=== PATIENT | female | born 1970 | race Caucasian/White ===

== ENCOUNTER 2017-04-08 22:30 | Inpatient (IN) | payer SELFPAY ==
[2017-04-08 23:26] LABS: #Eosinphils 0.3 thou/uL (0.0-0.7); #Lymphocytes 2.2 thou/uL (1.20-3.40); #Monocytes 0.5 thou/uL (0.11-0.59); #Neutrophils 4.1 thou/uL (1.40-6.50); %Basophils 0.2 % (0.0-1.0); %Eosinophils 4.6 % (0.0-10.0); %Lymphocytes 30.4 % (21.0-51.0); %Monocytes 6.8 % (0.0-10.0); Hemoglobin 11.8 g/dL (12.0-16.0); Mean Corpuscular Hemoglobin 28.5 pg (27.0-31.0); Mean Platelet Volume 7.1 fL (7.4-10.4); Platelet Count 399 thou/uL (130-400); RBC Distribution Width 13.3 % (11.5-14.5); Red Blood Cell (RBC) Count 4.12 mill/uL (4.20-5.40); White Blood Cell (WBC) Count 7.1 thou/uL (4.8-10.8)
[2017-04-08 23:41] LABS: ALT (SGPT) 31 U/L (8-55); AST (SGOT) 36 U/L (5-34); Albumin 3.8 g/dL (3.5-5.0); Alkaline Phosphatase 226 U/L (40-150); Anion Gap 14 mmol/L (10-20); BUN (Urea Nitrogen) 6 mg/dL (7.0-18.7); Bilirubin, Total 0.4 mg/dL (0.2-1.2); Calc. Creatinine Clearance 0 mL/min (70-130); Calcium 9.3 mg/dL (7.8-10.44); Carbon Dioxide 27 mmol/L (22-29); Chloride 102 mmol/L (98-107); Estimated GFR-MDRD 64; Globulin 3.4 g/dL (2.4-3.5); Glucose 115 mg/dL (70-105); Lipase 47 U/L (8-78); Potassium 3.2 mmol/L (3.5-5.1); Protein, Total 7.2 g/dL (6.0-8.3); Sodium 140 mmol/L (136-145)
[2017-04-08 23:54] LABS: Bilirubin Negative (Negative); Blood, Urine Negative (Negative); Clarity CLEAR (Clear); Glucose, Urine (Dipstick) Negative (Negative); Leukocyte Negative (Negative); Nitrite Negative (Negative); Protein, Urine (Dipstick) Negative (Neg-Trace); Specific Gravity, Urine 1.011 (1.002-1.036); Urobilinogen 0.2 mg/dL (0.2-1.0)
[2017-04-09] MEDS ORDERED: Promethazine HCl 25 MG/ML VIAL ONE (01:00)
[2017-04-09] MEDS ORDERED: Benzocaine 20% Spray 60 ML CAN ONE (01:22)
[2017-04-09] MEDS ORDERED: Lidocaine 2% Jelly 5 ML TUBE ONE (01:22)
[2017-04-09] MEDS ORDERED: Oxymetazoline HCl 0.05% ( 15 ML ) ONE (01:22)
[2017-04-09] MEDS ORDERED: Acetaminophen 325 MG TAB PO PRN (02:57)
[2017-04-09] MEDS ORDERED: Ondansetron ODT 4 MG TAB SL PRN (02:57)
[2017-04-09] MEDS ORDERED: Ondansetron HCl/PF 4 MG/2 ML Vial IVP PRN (02:57)
[2017-04-09] MEDS: Sodium Chloride 0.9% 1,000 ML IV SCH ×2 (03:13→11:00)
--- NOTE | 2017-04-09 08:18 | RAD ---
ACUTE ABDOMINAL SERIES: INDICATION: Burning pain in the upper abdomen. FINDINGS: Lungs are clear. The cardiac silhouette is accentuated by the exam technique and low lung volumes. Cholecystectomy clips are seen within the right upper quadrant. A small air fluid level is present w ithin the region of the suspected cecum. No differential air fluid levels are seen to suggest the pr esence of small bowel obstruction. There is gas extending to the level of the rectum. There is a mo derate amount of retained stool within the colon. Surgical clips present within the right lower quad rant of the abdomen likely related to a displaced cholecystectomy clip. Small phleboliths are seen w ithin the lower hemipelvis. No acute osseous abnormality is evident. IMPRESSION: 1. Small air fluid level within the region of the cecum can be seen with diarrheal states or colitis . There is no overt evidence to suggest the presence of small bowel obstruction. Gas is present all the way to the level of the colon and rectum. 2. Low lung volumes. POS: OFF
[2017-04-09 11:33] VITALS: BMI 34.2
--- NOTE | 2017-04-09 11:33 | HP ---
CHIEF COMPLAINT: Abdominal pain. HISTORY: The patient is a 46-year-old female who is 2 years status post laparoscopic appendectomy an d cholecystectomy. She reports an 8-month history of intermittent pain which is in the upper abdomen in left side, worse over the last week. No vomiting, but she has been having diarrhea for the last 2 years and has intermittent black tarry stools. She is passing flatus. Her last bowel movement 2 d ays ago. She has never had a colonoscopy. She has a family history of colon cancer in a grandparent . PAST MEDICAL HISTORY: Morbid obesity, hypothyroidism, mitral valve prolapse. PAST SURGICAL HISTORY: Appendectomy, cholecystectomy, and section. MEDICATIONS: Levothyroxine, Klonopin, Cymbalta, and nortriptyline. ALLERGIES: SULFA. SOCIAL HISTORY: She is , unemployed. No tobacco, no alcohol. FAMILY HISTORY: Colon cancer and congestive heart failure. PHYSICAL EXAMINATION: VITAL SIGNS: Temperature 97.4, pulse 86, blood pressure 100/69. GENERAL: She is an obese female, in no apparent distress. HEENT: She has an NG tube in, but minimal out. ABDOMEN: Her abdomen is obese, soft. She is tender in the left upper quadrant. No palpable masses. LABORATORY AND X-RAY FINDINGS: Her white count is 7.1, H&H 11 and 39, platelet count 399. Electroly doug are fine. AST 36.8, alkaline phosphatase 226. She had a KUB that showed no evidence of bowel ob struction. Air in the colon. ASSESSMENT: Chronic abdominal pain, history of melena, family history of colon cancer. PLAN: CT of abdomen and pelvis. GI consult.
--- NOTE | 2017-04-09 15:20 | CT ---
CT ABDOMEN AND PELVIS WITH IV AND ORAL CONTRAST: HISTORY: Abdomen pain. Diarrhea. FINDINGS: There is mild atelectasis at each lung base. Nasogastric tube descends to the stomach. Gallbladder is surgically absent. The common duct measures up to 1.3 cm. Pancreas is unremarkable. At the dome of the anterior segment right liver lobe, an oval subtle slightly hypodense mass measures up to 5.6 cm in length and abuts the superior margin of the liver. A less well-defined heterogeneou s low-density area is present at the dome of the lateral segment left liver lobe. No enlarged lymph nodes or free fluid are apparent within the abdomen and pelvis. The urinary bladder is incompletely distended. IMPRESSION: 1. Subtle heterogeneous low-density masses within each liver lobe, as detailed above. Each is immed iately beneath the diaphragm. Please consider MRI liver for better characterization. 2. Status post cholecystectomy. Common duct is dilated. Cause is not evident. This could also be evaluated at the time of MRI liver. Endoscopic evaluation may also be helpful. POS: [facility]
[2017-04-09] MEDS ORDERED: Promethazine HCl 25 MG/ML VIAL IM/IV PRN (16:50)
[2017-04-09] MEDS ORDERED: GoLYTELY 4,000 ml Bottle PO SCH (17:00)
[2017-04-09] MEDS ORDERED: ISOVUE-370 76%-LOCM 1 ML ONE (17:19)
--- NOTE | 2017-04-09 17:28 | CON ---
DATE OF CONSULTATION: 04/09/2017 HISTORY OF PRESENT ILLNESS: The patient is a 46-year-old female who reports 8-month histor y of left-sided abdominal pain, mostly this is in the left upper quadrant. She said it is mostly occ urs randomly, but can follow meals. She also has a lot of diarrhea related to meals. She has had so me blood in it and some black stools. She has lost approximately 30 pounds. She reports over the la st several months. She denies any nausea or vomiting. PAST MEDICAL HISTORY: Includes hypothyroidism and mitral valve prolapse. PAST MEDICAL HISTORY: Includes appendectomy, cholecystectomy, , and right wrist surgery. MEDICATIONS: On admission include clonazepam 2 mg p.o. t.i.d., nortriptyline 75 mg p.o. at bedtime, Cymbalta 60 mg p.o. at bedtime, levothyroxine 88 mcg p.o. daily. ALLERGIES: LATEX, SULFA, ADHESIVE TAPE, and IODINE. SOCIAL HISTORY: She does not smoke or drink. FAMILY HISTORY: Significant for a grandparent with colon and pancreatic cancer. REVIEW OF SYSTEMS: Ten systems were reviewed and were negative except for above. PHYSICAL EXAMINATION: GENERAL: Shows an overweight female, in no acute distress. VITAL SIGNS: Temperature 97.4, pulse 86, respiratory rate 18, blood pressure 100/69. HEENT: Unremarkable. NECK: Supple. CHEST: Clear. CARDIOVASCULAR: Regular rate and rhythm. ABDOMEN: Soft, nontender without organomegaly or masses. Bowel sounds are present and normoactive. RECTAL: Deferred. EXTREMITIES: Normal. NEUROLOGIC: Nonfocal. LABORATORY: Shows hemoglobin of 11.8. Chemistry significant for potassium 3.2, BUN 6, glucose 115, AST 36, and alkaline phosphatase 226. Urinalysis is normal. Acute abdominal series shows a single a ir fluid level in the area which seems a represent cecum. CT abdomen and pelvis shows subtle heterog eneous low density masses within each liver lobe, cholecystectomy with dilated common duct. ASSESSMENT: 1. Chronic left upper quadrant abdominal pain. 2. Chronic diarrhea. 3. Weight loss. 4. Abnormal liver by CT scan. 5. Mildly abnormal liver function tests. 6. Dilated biliary tree by CT. RECOMMENDATIONS: 1. EGD and colonoscopy in a.m. 2. Discontinue NG. 3. Begin prep. Hopefully, the patient will be able to tolerate it.
[2017-04-10] MEDS: Morphine 5 MG/ML SYRINGE SLOW IVP PRN ×5 (01:04→23:58)
[2017-04-10] MEDS ORDERED: Ondansetron HCl/PF 4 MG/2 ML Vial IVP PRN (10:59)
[2017-04-10] MEDS ORDERED: Promethazine HCl 25 MG/ML VIAL IM PRN (10:59)
[2017-04-10] MEDS ORDERED: Promethazine HCl 25 MG/ML VIAL SLOW IVP PRN (10:59)
[2017-04-10] MEDS ORDERED: Gadobenate Dimeglumine 529 MG/1 ML (20ML VIAL) ONE (13:00)
--- NOTE | 2017-04-10 13:08 | OP ---
PREOPERATIVE DIAGNOSES: 1. Left upper quadrant abdominal pain. 2. Abnormal CT scan of the abdomen. PROCEDURE: After informed consent was obtained, the patient was placed in the left lateral decubitus position. Anesthesia administered per the Anesthesia Department. Forward-viewing endoscope was ins erted into the esophagus under direct visualization with ease and passed to the second portion of the duodenum with ease. Second portion of the duodenum and duodenal bulb were normal. The pylorus, ant rum, body, fundus, and cardia were normal. Retroflexion of the stomach was normal. Esophagus was no rmal throughout. ASSESSMENT: Normal esophagogastroduodenoscopy. RECOMMENDATIONS: Proceed with colonoscopy. PROCEDURE: After informed consent was obtained, the patient was placed in the left lateral decubitus position. Anesthesia administered per the Anesthesia Department. Forward-viewing endoscope was ins erted inside the rectum after perianal inspection and rectal exam were normal and passed to the cecum and into the ileum. The ileum, ileocecal valve, and appendiceal orifice were normal. The prep was excellent. The ascending, transverse, descending, sigmoid, and rectum were normal. Retroflexion in rectum was normal. ASSESSMENT: Normal ileal colonoscopy. RECOMMENDATION: 1. MRI of the liver with a liver mass protocol. 2. MRCP. 3. Tumor markers.
--- NOTE | 2017-04-10 13:50 | MRI ---
MRI OF THE ABDOMEN WITH AND IWHTOUT IV CONTRAST: INDICATION: Liver lesions identified on a CT evaluation dated 04/09/17 with a history of abdominal pain, nausea, a nd vomiting for a month. TECHNIQUE: Multiplanar, multisequence MRI images were obtained in the abdomen with and without IV contrast utili zing 18 cc of MultiHance. Comparisons are made with prior CT of the abdomen and pelvis dated 04/09/17 from [facility] and a prior examination dated 03/19/15 from [facility]. FINDINGS: Corresponding to the areas of hypodensity seen on the recent CT examination dated 04/09/17 are lobula negro nodular lesions that are T2 hyperintense and T1 hypointense without evidence of signal dropout on the in and out of phase studies. One of the more conspicuous lesions is seen within segment 8 of th e right hepatic lobe measuring 3.1 cm. Two additional nodular lesions are seen within the region of the anterior aspect of segment 8 measuring 3 cm and 2.7 cm. The largest mass is seen within the late ral left hepatic lobe measuring 6.2 cm. The lesions demonstrate arterial enhancement with progressiv e enhancement throughout the postcontrast series. There are more central areas of washout seen on th e delayed phase images within the largest lesion within the lateral left hepatic lobe. The lesions d o demonstrate some restricted effusion on DWI imaging. No definite pathologically enlarged lymph nod es are evident. The spleen is normal in size. The gallbladder is surgically absent. There is moderate extrahepatic biliary ductal dilatation likely related to patient's post cholecystectomy state. The visualized resendiz creas and adrenal glands are unremarkable. IMPRESSION: Abnormal enhancing mass lesions within the right and left hepatic lobe are suspicious for metastatic disease or possibly lymphoma. Other differential considerations would have to include a multifocal H CC and less likely pyogenic abcesses. Would recommend an hepatic ultrasound to assess the capacity o f these lesions being sampled utilizing ultrasound as a guidance. Percutaneous sampling is recommend ed for further characterization. POS: [facility]
[2017-04-10] MEDS ORDERED: PHENYLEPHRINE-NS 100 MCG/ML 10 ML SYRINGE ONE (13:53)
[2017-04-10] MEDS ORDERED: Lidocaine 1% PF 5 ML VIAL ONE (13:53)
[2017-04-11] MEDS: Morphine 5 MG/ML SYRINGE SLOW IVP PRN ×4 (04:42→20:33)
--- NOTE | 2017-04-11 08:27 | PDOC.GSPN ---
Surgery Progress Note: Subj - Subjective Narrative: Still having pain left upper side Surgery Progress Note: Obj - Vital signs Vital signs: Vital Signs - Most Recent Temp Pulse Resp BP Pulse Ox 98.5 F 85 18 109/75 90 L 04/11/17 07:45 04/11/17 07:45 04/11/17 07:45 04/11/17 07:45 04/11/17 07:45 - Physical Exam General: no distress Cardiovascular: regular rate and rhythm Respiratory: clear to auscultation Abdomen: soft, tender (left upper abdomen) Surgery Progress Note: Results - Labs Result Diagrams: 04/08/17 22:50 04/08/17 22:50 Surgery Progress Note: A/P - Problem (1) Left upper quadrant pain Current Visit: Yes Code(s): R10.12 - LEFT UPPER QUADRANT PAIN Status: Acute (2) Liver masses Current Visit: Yes Code(s): R16.0 - HEPATOMEGALY, NOT ELSEWHERE CLASSIFIED Status: Acute Assessment and Plan: Await tumor markers to come back. May need some sort of liver biopsy
--- NOTE | 2017-04-11 13:33 | ULT ---
ABDOMINAL SONOGRAM: HISTORY: Abdominal pain. Liver masses. FINDINGS: Gallbladder is surgically absent. The common duct is 0.6 cm. Heterogeneous lobulated hypoechoic masses at the dome of the left liver lobe and right liver lobe cor relate with the abnormalities on recent CT and MRI imaging. The left lobe lateral segment abnormalit ies extend well into the inferior half of the lobe. No free fluid is evident. The spleen, kidneys, and visualized portions of the abdominal aorta, IVC, and pancreas have a normal sonographic appearance. IMPRESSION: 1. Multiple hypoechoic liver masses. Left liver lobe masses are better visualized in the transverse plane and the sagittal plane. Percutaneous needle biopsy could likely be achieved. 2. Cholelithiasis. No evidence of acute biliary obstruction. Findings were discussed with Dr. Lee at 1240 hours. CODE CR POS: [facility]
--- NOTE | 2017-04-11 15:01 | PRG ---
DATE OF SERVICE: 04/11/2017 SUBJECTIVE: The patient is without complaints. She is happy to have eaten something today. OBJECTIVE: VITAL SIGNS: Temperature 98.5, pulse 85, respiratory rate 18, blood pressure 109/75. CHEST: Clear. CARDIOVASCULAR: Regular rate and rhythm. ABDOMEN: Soft and nontender without organomegaly or masses. LABORATORY DATA: Shows an AFP of 33.8. CEA of 1.45. MRI with liver mass protocol shows abnormal enhancing mass lesions within the right and left hepatic lobe which are suspicious for metastatic disease or possibly lymphoma. Other differential considerat ions would include multifocal HCC and less likely pyogenic abscesses. Recommended hepatic ultrasound to assess the capacity of these lesions to be biopsied. ASSESSMENT: 1. Hepatic masses suspicious for metastatic disease versus lymphoma versus multifocal hepatocellular carcinoma. 2. Left upper quadrant abdominal pain. RECOMMENDATION: Hepatic ultrasound to assess for possible biopsy.
[2017-04-11] MEDS ORDERED: Nortriptyline HCl 25 MG CAP PO SCH (21:00)
[2017-04-11] MEDS ORDERED: DULoxetine 60 MG CAP PO SCH (21:00)
[2017-04-12] MEDS: Morphine 5 MG/ML SYRINGE SLOW IVP PRN ×3 (00:43→10:10)
[2017-04-12 07:21] LABS: PTT 40.8 SEC (22.9-36.1); Prothrombin Time 13.2 SEC (12.0-14.7)
[2017-04-12] MEDS ORDERED: Sodium Bicarbonate 2.5 MEQ/5 ML VIAL ONE (08:15)
[2017-04-12] MEDS ORDERED: Fentanyl 100 MCG/2 ML VIAL ONE ×2 (08:15→09:18)
[2017-04-12] MEDS ORDERED: Midazolam HCl 2 mg/2 ml Vial ONE (08:15)
[2017-04-12] MEDS ORDERED: Sodium Chloride 0.9% 20 ML ONE (08:26)
--- NOTE | 2017-04-12 11:01 | PRG ---
DATE OF SERVICE: 04/12/2017 SUBJECTIVE: The patient is having some pain after her liver biopsy, but is otherwise doing alright. OBJECTIVE: VITAL SIGNS: Temperature 99.2, pulse 98, respiratory rate 18, blood pressure 111/79. CHEST: Clear. CARDIOVASCULAR: Regular rate and rhythm. ABDOMEN: Tender in the right upper quadrant. LABORATORY DATA: No new laboratory. ASSESSMENT: Liver masses - status post biopsy. RECOMMENDATIONS: Stable for discharge from gastrointestinal standpoint. Can follow up in the outpat ient setting.
[2017-04-12] MEDS ORDERED: Acetaminophen 500 MG TAB PO PRN (11:07)
[2017-04-12] MEDS ORDERED: Sodium Chloride 0.9% 1,000 ML IV SCH (11:15)
--- NOTE | 2017-04-12 11:21 | ULT ---
ULTRASOUND GUIDED LEFT HEPATIC LOBE BIOPSY: INDICATION: Hepatic masses. TECHNIQUE: Informed consent was obtained. Preprocedure ultrasound images were performed for guidance purposes. A site overlying the left hepatic lobe was marked. The site was prepped and draped in the usual sta ndard fashion. A timeout was performed. The patient underwent conscious sedation under the guidance of the radiology nurse. The patient received a total of 200 mcg of IV Fentanyl and 2 mg of IV Verse d for the procedure. Please see their notes for full details concerning the medications administered . The biopsy site was anesthetized utilizing buffered 1% Lidocaine. A 17-gauge 11.8 cm trocar needle w as guided down to the most conspicuous region containing the mass lesions within the lateral left hep atic lobe. Dr. Yung of the pathology department was on site to verify tissue adequacy. Following m aneuvering of the trocar needle to the region of the left hepatic lobe mass lesions, 3 separate core samples were obtained. Dr. Yung evaluated each of these core samples following each of the passes. There conspicuous cells seen on the third pass and also on the 2nd core sample. Post procedure ultr asound images demonstrate no significant intraparenchymal hematoma. A pledget of Gelfoam was adminis tered into the biopsy site through the trocar needle. Pressure was held until hemostasis was obtaine d. IMPRESSION: Successful ultrasound-guided core biopsy of the large left hepatic lobe mass seen on MR examination a nd CT examination dated 04/10/17 and 04/09/17 respectively. POS: [facility]
--- NOTE | 2017-04-12 11:39 | DIS ---
DISCHARGE DIAGNOSIS: Abdominal pain. PROCEDURES DURING ADMISSION: CT scan of abdomen and pelvis, colonoscopy, EGD, percutaneous biopsy of liver mass. HOSPITAL COURSE: The patient was admitted under the auspices of a small-bowel obstruction, which she did not have. CT scan showed a mass in her liver. GI was consulted. She underwent colonoscopy and EGD, unremarkable. Then, she underwent a percutaneous CT-directed biopsy of the liver mass. The re sults are pending. She is now discharged home on a regular diet. She will follow up with me in 3 da ys.
[2017-04-12 13:41] VITALS: BP 109/77; TEMP 97.7
--- NOTE | 2017-05-08 12:05 | EKG ---
Test Reason : Blood Pressure : / mmHG Vent. Rate : 086 BPM Atrial Rate : 086 BPM P-R Int : 156 ms QRS Dur : 094 ms QT Int : 414 ms P-R-T Axes : 033 -26 036 degrees QTc Int : 495 ms Normal sinus rhythm Possible Left atrial enlargement Prolonged QT Abnormal ECG Confirmed by BENEDICTO PADILLA, WILY Bailey ([id number]), editorial director KELVIN DUFF ([id number]) on 05/08/2017 12:05:33 PM Referred By: Confirmed By:WILY DIANE MD
== END 2017-04-12 13:37 | disposition home or self-care (01) | DRG 443 ==
LOC: ERS 22:30 → T4-B 04-09 01:10
PROVIDERS: ADMIT Surgery; ATTEND Surgery
PROC: 0DJ08ZZ Inspection of Upper Intestinal Tract, Via Natural or Artificial Opening Endoscopic (ICD-10-PCS; principal; 2017-04-10)
PROC: 0DJD8ZZ Inspection of Lower Intestinal Tract, Via Natural or Artificial Opening Endoscopic (ICD-10-PCS; 2017-04-10)
PROC: 0FB03ZX Excision of Liver, Percutaneous Approach, Diagnostic (ICD-10-PCS; 2017-04-11)
DX: D13.4 Benign neoplasm of liver (principal); E03.9 Hypothyroidism, unspecified; Z80.0 Family history of malignant neoplasm of digestive organs; E66.9 Obesity, unspecified; Z68.34 Body mass index [BMI] 34.0-34.9, adult
CPT/HCPCS: 36415; 47000; 74022; 74177; 74183; 76700; 76942; 80053; 81003; 82105; 82378; 83690; 85025; 85610; 85730; 86301; 88307; 88312; 88313; 88325; 88333; 88334; 88341; 88342; 93005; 96361; 96372; 96374; 96375; 99152; 99153; J2270; A4216; A9579; J2001; J2250; J2405; J2550; J3010

== ENCOUNTER 2017-04-14 20:15 | Emergency (ER) | payer SELFPAY ==
[~2017-04-14 20:15] MED LIST: ISOVUE-370 76%-LOCM 1 ML ONE
[2017-04-14 22:27] LABS: Bilirubin Negative (Negative); Blood, Urine Negative (Negative); Clarity CLOUDY (Clear); Glucose, Urine (Dipstick) Negative (Negative); Leukocyte Trace (Negative); Nitrite Negative (Negative); Protein, Urine (Dipstick) Negative (Neg-Trace); Specific Gravity, Urine 1.015 (1.002-1.036); Urobilinogen 0.2 mg/dL (0.2-1.0)
[2017-04-14 22:29] LABS: Bacteria/HPF 1+ HPF (None Seen); Hyaline Casts/LPF 0-3 HYALINE CAST LPF (0-3 Hyaline); RBC/HPF 0-3 HPF (0-3)
[2017-04-14 22:47] LABS: #Basophils 0.1 thou/uL (0.0-0.2); #Eosinphils 0.3 thou/uL (0.0-0.7); #Lymphocytes 2.7 thou/uL (1.20-3.40); #Monocytes 0.3 thou/uL (0.11-0.59); #Neutrophils 2.8 thou/uL (1.40-6.50); %Basophils 1.5 % (0.0-1.0); %Eosinophils 4.9 % (0.0-10.0); %Lymphocytes 42.9 % (21.0-51.0); %Monocytes 5.4 % (0.0-10.0); %Neutrophils 45.4 % (42.0-75.0); Hemoglobin 11.7 g/dL (12.0-16.0); Mean Corpuscular HGB CONC 31.8 g/dL (32.0-36.0); Mean Corpuscular Hemoglobin 28.9 pg (27.0-31.0); Mean Platelet Volume 6.9 fL (7.4-10.4); Platelet Count 395 thou/uL (130-400); RBC Distribution Width 13.5 % (11.5-14.5); Red Blood Cell (RBC) Count 4.04 mill/uL (4.20-5.40); White Blood Cell (WBC) Count 6.2 thou/uL (4.8-10.8)
[2017-04-14 23:07] LABS: ALT (SGPT) 51 U/L (8-55); AST (SGOT) 69 U/L (5-34); Albumin 3.8 g/dL (3.5-5.0); Alkaline Phosphatase 328 U/L (40-150); Anion Gap 11 mmol/L (10-20); BUN (Urea Nitrogen) 7 mg/dL (7.0-18.7); Bilirubin, Total 0.4 mg/dL (0.2-1.2); Calc. Creatinine Clearance 0 mL/min (70-130); Calcium 9.6 mg/dL (7.8-10.44); Carbon Dioxide 30 mmol/L (22-29); Chloride 101 mmol/L (98-107); Estimated GFR-MDRD 84; Globulin 3.6 g/dL (2.4-3.5); Glucose 77 mg/dL (70-105); Lipase 37 U/L (8-78); Potassium 4.1 mmol/L (3.5-5.1); Protein, Total 7.4 g/dL (6.0-8.3); Sodium 138 mmol/L (136-145)
--- NOTE | 2017-04-15 07:13 | CT ---
CT ABDOMEN AND PELVIS: 04/15/2017 HISTORY: Abdominal pain. Abdominal tightness. The patient reports a history of a liver biopsy. COMPARISON: 04/09/2017 TECHNIQUE: Serial axial CT imaging obtained at 5 mm intervals, from the lung bases through the pubic symphysis, with IV contrast. Coronal reformatted imaging obtained. FINDINGS: The imaged lung bases demonstrate bibasilar partial opacification of the lingula, bilateral lower lob es, and right middle lobe, suggesting bibasilar infectious pneumonitis or volume loss. Two punctate foci of free intraperitoneal air are seen anterior to the left lobe of the liver, likely associated with the patient reported history of recent liver biopsy. Clinical correlation is luigi ial. Cholecystectomy clips are present. The spleen appears grossly unremarkable. The patient underwent an abdominal MRI on 04/10/2017, which demonstrated enhancing liver lesions, non specific. These lesions are better evaluated on that MRI. This examination demonstrates patchy area s of ill-defined decreased density within the superior aspect of the right lobe of the liver, approac chani the dome, as well as in the superior aspect of the left lobe of the liver, approaching the dome. Presumably, the lesions within the ventral aspect of the left hepatic lobe, superiorly, were recent ly biopsied. The gallbladder is surgically absent. The pancreas, adrenal glands, and kidneys are grossly unremark able. No free fluid is seen in the abdomen or pelvis. The bowel demonstrates no inflammatory change or evidence of obstruction. Postoperative clips are no negro in the right lower quadrant, consistent with the provided history of an appendectomy. Mildly prominent nodes are noted in the emily hepatis, similar when compared to study performed 03/19. No retroperitoneal lymphadenopathy. The vascular structures of the abdomen/pelvis appear patent. The osseous structures demonstrate no a cute findings. Small, nonspecific sclerotic foci noted within the pelvis bilaterally, similar when c ompared to prior CT exam. No acute osseous abnormality seen. IMPRESSION: 1. Increased density in both lung bases, suggesting volume loss or infiltrate. 2. Punctate foci of free intraperitoneal air within the fat, anterior to the left lobe of the liver, suggesting change associated with recent biopsy. 3. Ill defined hypodense masses noted within the superior aspect of the left lower lobe, anteriorly, better characterized on recent MRI. No evidence for free fluid, bowel inflammatory change, or bowel obstruction. POS: [facility]
== END 2017-04-15 01:10 | disposition home or self-care (01) ==
LOC: ERS 20:15
DX: G89.18 Other acute postprocedural pain (principal); R10.13 Epigastric pain; R10.10 Upper abdominal pain, unspecified; E03.9 Hypothyroidism, unspecified; E78.5 Hyperlipidemia, unspecified; I10 Essential (primary) hypertension; F41.9 Anxiety disorder, unspecified; F43.10 Post-traumatic stress disorder, unspecified; F42.9 Obsessive-compulsive disorder, unspecified; F31.9 Bipolar disorder, unspecified; Z79.891 Long term (current) use of opiate analgesic; Z79.899 Other long term (current) drug therapy
CPT/HCPCS: 36415; 74177; 80053; 81003; 81015; 83690; 85025

== ENCOUNTER 2017-04-18 09:42 | Emergency (ER) | payer SELFPAY ==
[2017-04-18 10:20] LABS: #Eosinphils 0.3 thou/uL (0.0-0.7); #Lymphocytes 2.7 thou/uL (1.20-3.40); #Monocytes 0.5 thou/uL (0.11-0.59); %Basophils 0.4 % (0.0-1.0); %Eosinophils 3.2 % (0.0-10.0); %Lymphocytes 31.3 % (21.0-51.0); %Monocytes 5.7 % (0.0-10.0); %Neutrophils 59.3 % (42.0-75.0); Hemoglobin 11.9 g/dL (12.0-16.0); Mean Corpuscular HGB CONC 32.5 g/dL (32.0-36.0); Mean Corpuscular Volume 89.2 fl (81.0-99.0); Mean Platelet Volume 6.9 fL (7.4-10.4); Platelet Count 414 thou/uL (130-400); RBC Distribution Width 13.3 % (11.5-14.5); Red Blood Cell (RBC) Count 4.11 mill/uL (4.20-5.40); White Blood Cell (WBC) Count 8.5 thou/uL (4.8-10.8)
[2017-04-18 10:38] LABS: ALT (SGPT) 50 U/L (8-55); AST (SGOT) 70 U/L (5-34); Albumin 3.8 g/dL (3.5-5.0); Alkaline Phosphatase 637 U/L (40-150); Anion Gap 12 mmol/L (10-20); BUN (Urea Nitrogen) 9 mg/dL (7.0-18.7); Bilirubin, Total 0.5 mg/dL (0.2-1.2); Calc. Creatinine Clearance 0 mL/min (70-130); Calcium 9.8 mg/dL (7.8-10.44); Carbon Dioxide 24 mmol/L (22-29); Chloride 103 mmol/L (98-107); Estimated GFR-MDRD 84; Globulin 3.6 g/dL (2.4-3.5); Glucose 98 mg/dL (70-105); Lipase 32 U/L (8-78); Potassium 4.2 mmol/L (3.5-5.1); Protein, Total 7.4 g/dL (6.0-8.3); Sodium 135 mmol/L (136-145)
== END 2017-04-18 11:35 | disposition home or self-care (01) ==
LOC: ERS 09:42
DX: R10.12 Left upper quadrant pain (principal); R10.11 Right upper quadrant pain; E03.9 Hypothyroidism, unspecified; E78.5 Hyperlipidemia, unspecified; I10 Essential (primary) hypertension; F41.9 Anxiety disorder, unspecified; F43.10 Post-traumatic stress disorder, unspecified; F42.9 Obsessive-compulsive disorder, unspecified; F31.9 Bipolar disorder, unspecified; Z87.891 Personal history of nicotine dependence
CPT/HCPCS: 36415; 80053; 83690; 85025; 99284

== ENCOUNTER 2017-04-24 00:39 | Emergency (ER) | payer SELFPAY ==
[2017-04-24 01:11] LABS: #Basophils 0.1 thou/uL (0.0-0.2); #Eosinphils 0.2 thou/uL (0.0-0.7); #Lymphocytes 3.5 thou/uL (1.20-3.40); #Monocytes 0.4 thou/uL (0.11-0.59); %Eosinophils 2.7 % (0.0-10.0); %Lymphocytes 42.6 % (21.0-51.0); %Monocytes 5.3 % (0.0-10.0); %Neutrophils 48.4 % (42.0-75.0); Hemoglobin 12.7 g/dL (12.0-16.0); Mean Corpuscular HGB CONC 31.9 g/dL (32.0-36.0); Mean Corpuscular Hemoglobin 28.5 pg (27.0-31.0); Mean Corpuscular Volume 89.2 fl (81.0-99.0); Mean Platelet Volume 6.9 fL (7.4-10.4); Platelet Count 412 thou/uL (130-400); RBC Distribution Width 14.5 % (11.5-14.5); Red Blood Cell (RBC) Count 4.46 mill/uL (4.20-5.40); White Blood Cell (WBC) Count 8.2 thou/uL (4.8-10.8)
[2017-04-24 01:32] LABS: ALT (SGPT) 19 U/L (8-55); AST (SGOT) 18 U/L (5-34); Alkaline Phosphatase 295 U/L (40-150); Anion Gap 15 mmol/L (10-20); BUN (Urea Nitrogen) 10 mg/dL (7.0-18.7); Bilirubin, Total 0.3 mg/dL (0.2-1.2); Calc. Creatinine Clearance 0 mL/min (70-130); Calcium 9.7 mg/dL (7.8-10.44); Carbon Dioxide 22 mmol/L (22-29); Chloride 104 mmol/L (98-107); Estimated GFR-MDRD 72; Globulin 3.5 g/dL (2.4-3.5); Glucose 91 mg/dL (70-105); Lipase 44 U/L (8-78); Potassium 3.7 mmol/L (3.5-5.1); Protein, Total 7.5 g/dL (6.0-8.3); Sodium 137 mmol/L (136-145)
[2017-04-24] MEDS ORDERED: Ketorolac Tromethamine 60 MG/2 ML VIAL ONE (03:22)
== END 2017-04-24 03:45 | disposition home or self-care (01) ==
LOC: ERS 00:39
DX: R10.9 Unspecified abdominal pain (principal); E03.9 Hypothyroidism, unspecified; E78.5 Hyperlipidemia, unspecified; I10 Essential (primary) hypertension; F41.9 Anxiety disorder, unspecified; F90.9 Attention-deficit hyperactivity disorder, unspecified type; F43.10 Post-traumatic stress disorder, unspecified; F31.9 Bipolar disorder, unspecified; Z87.891 Personal history of nicotine dependence
CPT/HCPCS: 36415; 80053; 83690; 85025; 96372; J1885

== ENCOUNTER 2017-06-14 20:36 | Emergency (ER) | payer SELFPAY ==
[2017-06-14 21:45] LABS: #Basophils 0.1 thou/uL (0.0-0.2); #Eosinphils 0.2 thou/uL (0.0-0.7); #Lymphocytes 3.5 thou/uL (1.20-3.40); #Monocytes 0.6 thou/uL (0.11-0.59); #Neutrophils 5.5 thou/uL (1.40-6.50); %Basophils 0.9 % (0.0-1.0); %Eosinophils 2.1 % (0.0-10.0); %Lymphocytes 35.5 % (21.0-51.0); %Monocytes 5.7 % (0.0-10.0); %Neutrophils 55.9 % (42.0-75.0); Hemoglobin 12.5 g/dL (12.0-16.0); Mean Corpuscular HGB CONC 33.8 g/dL (32.0-36.0); Mean Corpuscular Hemoglobin 29.4 pg (27.0-31.0); Mean Corpuscular Volume 87.1 fl (81.0-99.0); Mean Platelet Volume 7.3 fL (7.4-10.4); Platelet Count 318 thou/uL (130-400); Red Blood Cell (RBC) Count 4.24 mill/uL (4.20-5.40); White Blood Cell (WBC) Count 9.8 thou/uL (4.8-10.8)
[2017-06-14] MEDS ORDERED: Furosemide 100 MG/10 ML VIAL ONE (21:57)
[2017-06-14] MEDS ORDERED: Ketorolac Tromethamine 30 MG/ML VIAL ONE (21:57)
[2017-06-14 22:07] LABS: ALT (SGPT) 22 U/L (8-55); AST (SGOT) 22 U/L (5-34); Albumin 4.3 g/dL (3.5-5.0); Alkaline Phosphatase 116 U/L (40-150); Anion Gap 17 mmol/L (10-20); BUN (Urea Nitrogen) 14 mg/dL (7.0-18.7); Bilirubin, Total 0.2 mg/dL (0.2-1.2); Calc. Creatinine Clearance 0 mL/min (70-130); Calcium 9.6 mg/dL (7.8-10.44); Carbon Dioxide 27 mmol/L (22-29); Chloride 101 mmol/L (98-107); Estimated GFR-MDRD 62; Globulin 3.4 g/dL (2.4-3.5); Glucose 85 mg/dL (70-105); Potassium 3.5 mmol/L (3.5-5.1); Protein, Total 7.7 g/dL (6.0-8.3); Sodium 141 mmol/L (136-145)
[2017-06-14] MEDS ORDERED: Ondansetron ODT 8 MG TAB ONE (22:28)
[2017-06-14] MEDS ORDERED: Proparacaine 0.5% Opth 15 ML BOT ONE (22:28)
[2017-06-14 22:43] LABS: Bilirubin Negative (Negative); Blood, Urine Negative (Negative); Clarity CLOUDY (Clear); Glucose, Urine (Dipstick) Negative (Negative); Leukocyte Negative (Negative); Nitrite Negative (Negative); Protein, Urine (Dipstick) Negative (Neg-Trace); Specific Gravity, Urine 1.021 (1.002-1.036); Urobilinogen 0.2 mg/dL (0.2-1.0); pH, Urine 5.5 (5.0-9.0)
== END 2017-06-14 23:20 | disposition home or self-care (01) ==
LOC: ERS 20:36
DX: R60.0 Localized edema (principal); R14.0 Abdominal distension (gaseous); E03.9 Hypothyroidism, unspecified; F41.9 Anxiety disorder, unspecified; F90.9 Attention-deficit hyperactivity disorder, unspecified type; F43.10 Post-traumatic stress disorder, unspecified; F31.9 Bipolar disorder, unspecified; Z87.891 Personal history of nicotine dependence; Z79.899 Other long term (current) drug therapy
CPT/HCPCS: 36415; 80053; 81003; 85025; 96374; 96375; J1885; J1940

== ENCOUNTER 2017-07-27 13:35 | Emergency (ER) | payer SELFPAY ==
[2017-07-27] MEDS ORDERED: Ketorolac Tromethamine 30 MG/ML VIAL ONE (14:15)
[2017-07-27 14:19] LABS: #Eosinphils 0.3 thou/uL (0.0-0.7); #Lymphocytes 2.8 thou/uL (1.20-3.40); #Monocytes 0.5 thou/uL (0.11-0.59); #Neutrophils 5.2 thou/uL (1.40-6.50); %Basophils 0.5 % (0.0-1.0); %Eosinophils 3.2 % (0.0-10.0); %Lymphocytes 31.5 % (21.0-51.0); %Monocytes 5.9 % (0.0-10.0); %Neutrophils 58.9 % (42.0-75.0); Hemoglobin 12.4 g/dL (12.0-16.0); Mean Corpuscular HGB CONC 33.4 g/dL (32.0-36.0); Mean Platelet Volume 7.7 fL (7.4-10.4); Platelet Count 311 thou/uL (130-400); RBC Distribution Width 12.8 % (11.5-14.5); Red Blood Cell (RBC) Count 4.28 mill/uL (4.20-5.40); White Blood Cell (WBC) Count 8.7 thou/uL (4.8-10.8)
[2017-07-27 14:24] LABS: Bilirubin Negative (Negative); Blood, Urine Negative (Negative); Clarity CLOUDY (Clear); Glucose, Urine (Dipstick) Negative (Negative); Leukocyte Moderate (Negative); Nitrite Negative (Negative); Protein, Urine (Dipstick) Negative (Neg-Trace); Specific Gravity, Urine 1.022 (1.002-1.036); Urobilinogen 0.2 mg/dL (0.2-1.0); pH, Urine 5.5 (5.0-9.0)
[2017-07-27 14:25] LABS: Bacteria/HPF 1+ HPF (None Seen); Hyaline Casts/LPF 4-6 HYALINE CAST LPF (0-3 Hyaline); RBC/HPF 0-3 HPF (0-3)
[2017-07-27 14:39] LABS: ALT (SGPT) 17 U/L (8-55); AST (SGOT) 20 U/L (5-34); Albumin 4.3 g/dL (3.5-5.0); Alkaline Phosphatase 120 U/L (40-150); Anion Gap 12 mmol/L (10-20); BUN (Urea Nitrogen) 14 mg/dL (7.0-18.7); Bilirubin, Total 0.2 mg/dL (0.2-1.2); CK (CPK) 133 U/L (29-168); Calc. Creatinine Clearance 0 mL/min (70-130); Calcium 9.5 mg/dL (7.8-10.44); Carbon Dioxide 24 mmol/L (22-29); Chloride 107 mmol/L (98-107); Estimated GFR-MDRD 74; Globulin 3.5 g/dL (2.4-3.5); Glucose 83 mg/dL (70-105); Lipase 19 U/L (8-78); Potassium 3.9 mmol/L (3.5-5.1); Protein, Total 7.8 g/dL (6.0-8.3); Sodium 139 mmol/L (136-145)
[2017-07-27] MEDS ORDERED: ISOVUE-370 76%-LOCM 1 ML ONE (15:09)
--- NOTE | 2017-07-27 15:26 | RAD ---
TWO VIEW CHEST: HISTORY: Chest pain. Vomiting. Lungs show no evidence of inflammatory infiltrate. There is a nodular density overlying the left mid lung which appears new when compared to a prior plain film of 2004. Linear markings in the left lung base were present previously and are stable. Lungs otherwise appear clear. Heart and mediastinum unremarkable. Osseous structures unremarkable. IMPRESSION: Question new nodule in the left mid lung. Recommend close followup. Consider further evaluation wit h noncontrast chest CT. POS: [facility]
--- NOTE | 2017-07-27 15:48 | CT ---
CT ABDOMEN AND PELVIS WITH CONTRAST: 07/27/17 Multiple axial tomograms obtained through the abdomen and pelvis with IV enhancement. INDICATIONS: Abdominal pain. Vomiting. Lung bases clear. Liver, spleen, pancreas unremarkable. Patient is post cholecystectomy. Stomach and duodenum unremarka ble. Adrenal glands normal. Kidneys unremarkable. No hydronephrosis or urinary calculus. Urinary bladder is contracted. Small bowel loops normal caliber. Appendix not identified. Colon unremarkable. Aorta normal caliber. No adenopathy seen. Images through pelvis show evidence of hysterectomy. There is a cyst in the left pelvis measuring 2.5 cm consistent with an ovarian cyst. There are scatte red areas of focal sclerosis in the pelvis suggesting focal bone islands. IMPRESSION: 1. 2.5 cm cyst left pelvis most consistent with an ovarian cyst. Patient appears to be post hyst erectomy. 2. No acute process identified. POS: [facility]
--- NOTE | 2017-08-14 18:23 | EKG ---
Test Reason : Blood Pressure : / mmHG Vent. Rate : 084 BPM Atrial Rate : 084 BPM P-R Int : 150 ms QRS Dur : 094 ms QT Int : 402 ms P-R-T Axes : 051 -27 048 degrees QTc Int : 475 ms Normal sinus rhythm Possible Left atrial enlargement Borderline ECG Confirmed by KHURRAM BEDOLLA D.O. ([id number]), scientific publications editor KELVIN DUFF ([id number]) on 08/14/2017 6:22:36 PM Referred By: Confirmed By:KHURRAM BEDOLLA D.O.
== END 2017-07-27 17:48 | disposition home or self-care (01) ==
LOC: ERS 13:35
DX: R10.12 Left upper quadrant pain (principal); E03.9 Hypothyroidism, unspecified; Z86.711 Personal history of pulmonary embolism; Z86.718 Personal history of other venous thrombosis and embolism; F41.9 Anxiety disorder, unspecified; F43.10 Post-traumatic stress disorder, unspecified; F31.9 Bipolar disorder, unspecified; F90.9 Attention-deficit hyperactivity disorder, unspecified type; F42.9 Obsessive-compulsive disorder, unspecified; Z87.891 Personal history of nicotine dependence
CPT/HCPCS: 36415; 71046; 74177; 80053; 81003; 81015; 82550; 83690; 83880; 85025; 87086; 93005; 96374; J1885

== ENCOUNTER 2017-10-06 10:19 | Emergency (ER) | payer SELFPAY ==
[2017-10-06 10:49] LABS: #Basophils 0.1 thou/uL (0.0-0.2); #Eosinphils 0.2 thou/uL (0.0-0.7); #Lymphocytes 2.4 thou/uL (1.20-3.40); #Monocytes 0.4 thou/uL (0.11-0.59); #Neutrophils 4.2 thou/uL (1.40-6.50); %Basophils 0.8 % (0.0-1.0); %Eosinophils 2.4 % (0.0-10.0); %Lymphocytes 33.2 % (21.0-51.0); %Monocytes 5.8 % (0.0-10.0); %Neutrophils 57.7 % (42.0-75.0); Hemoglobin 12.5 g/dL (12.0-16.0); Mean Corpuscular HGB CONC 34.3 g/dL (32.0-36.0); Mean Corpuscular Hemoglobin 29.9 pg (27.0-31.0); Mean Corpuscular Volume 87.2 fL (78.0-98.0); Mean Platelet Volume 7.4 fL (7.4-10.4); Platelet Count 278 thou/uL (130-400); RBC Distribution Width 11.7 % (11.5-14.5); Red Blood Cell (RBC) Count 4.17 mill/uL (4.20-5.40); White Blood Cell (WBC) Count 7.3 thou/uL (4.8-10.8)
[2017-10-06 11:13] LABS: ALT (SGPT) 21 U/L (8-55); AST (SGOT) 19 U/L (5-34); Albumin 4.3 g/dL (3.5-5.0); Alkaline Phosphatase 110 U/L (40-150); Anion Gap 12 mmol/L (10-20); BUN (Urea Nitrogen) 13 mg/dL (7.0-18.7); Bilirubin, Total 0.4 mg/dL (0.2-1.2); Calc. Creatinine Clearance 0 mL/min (70-130); Calcium 9.7 mg/dL (7.8-10.44); Carbon Dioxide 24 mmol/L (22-29); Chloride 104 mmol/L (98-107); Estimated GFR-MDRD 70; Glucose 97 mg/dL (70-105); Lipase 13 U/L (8-78); Potassium 3.9 mmol/L (3.5-5.1); Protein, Total 7.3 g/dL (6.0-8.3); Sodium 136 mmol/L (136-145)
[2017-10-06 11:30] LABS: Bilirubin Negative (Negative); Blood, Urine Negative (Negative); Clarity CLOUDY (Clear); Glucose, Urine (Dipstick) Negative (Negative); Leukocyte Small (Negative); Nitrite Negative (Negative); Protein, Urine (Dipstick) Negative (Neg-Trace); Specific Gravity, Urine 1.011 (1.002-1.036); Urobilinogen 0.2 mg/dL (0.2-1.0); pH, Urine 5.5 (5.0-9.0)
[2017-10-06 11:31] LABS: Bacteria/HPF 1+ HPF (None Seen); Hyaline Casts/LPF 4-6 HYALINE CAST LPF (0-3 Hyaline); Pathc Cast-AUWi Flag 1.74 (0-2.49)
[2017-10-06 11:44] LABS: RBC/HPF 0-3 HPF (0-3)
--- NOTE | 2017-10-06 12:09 | CT ---
CT CHEST WITHOUT CONTRAST CT ABDOMEN AND PELVIS WITHOUT CONTRAST: Technique: Multiple axial tomograms were obtained through the chest, abdomen, and pelvis without IV e nhancement. Indications: Cough. Left lower quadrant pain. Nausea. Diarrhea. Comparison: CT abdomen/pelvis 07-27-17. That exam described a 2.5 cm cyst in the left adnexa. FINDINGS: CT CHEST: The lung mckenzie are clear. No evidence of infiltrate or effusion. Mediastinum is unremarkable. IMPRESSION: Unremarkable CT chest. CT ABDOMEN AND PELVIS WITHOUT CONTRAST: The liver, spleen, and pancreas appear unremarkable. The patient is post cholecystectomy. Stomach and duodenum unremarkable. Adrenal glands and kidneys are unremarkable. No urinary tract calculus identified. Urinary bladder is unremarkable. Small bowel loops appear normal. Colon unremarkable. The cystic mass in the left pelvis noted on the prior exam is no longer present. No free fluid. Aorta and retroperitoneum appear unremarkable. Tiny umbilical hernia. IMPRESSION: 1. Previously described cyst in the left pelvis is no longer present. 2. No acute abdominal or pelvic abnormality identified. POS: [facility]
[2017-10-06] MEDS ORDERED: Ondansetron ODT 4 MG TAB ONE (13:43)
[2017-10-08 01:43] LABS: Chlamydia by PCR Not Detected (NotDetected); GC by PCR Not Detected (NotDetected)
== END 2017-10-06 15:49 | disposition home or self-care (01) ==
LOC: ERS 10:19
DX: N76.0 Acute vaginitis (principal); E03.9 Hypothyroidism, unspecified; Z86.711 Personal history of pulmonary embolism; F41.9 Anxiety disorder, unspecified; F32.9 Major depressive disorder, single episode, unspecified; Z87.891 Personal history of nicotine dependence; Z79.899 Other long term (current) drug therapy
CPT/HCPCS: 36415; 71250; 74177; 80053; 81003; 81015; 83690; 85025; 87086; 87480; 87491; 87510; 87591; 87660; 96372; Q0162

== ENCOUNTER 2017-11-05 03:12 | Emergency (ER) | payer SELFPAY ==
[2017-11-05] MEDS ORDERED: Morphine 4 MG/ML VIAL ONE (03:30)
[2017-11-05] MEDS ORDERED: Ondansetron HCl/PF 4 MG/2 ML Vial ONE (03:30)
[2017-11-05 03:38] LABS: #Basophils 0.1 thou/uL (0.0-0.2); #Eosinphils 0.2 thou/uL (0.0-0.7); #Lymphocytes 2.4 thou/uL (1.20-3.40); #Monocytes 0.5 thou/uL (0.11-0.59); #Neutrophils 4.1 thou/uL (1.40-6.50); %Basophils 1.1 % (0.0-1.0); %Eosinophils 2.1 % (0.0-10.0); %Lymphocytes 33.2 % (21.0-51.0); %Neutrophils 56.6 % (42.0-75.0); Hemoglobin 12.5 g/dL (12.0-16.0); Mean Corpuscular HGB CONC 34.4 g/dL (32.0-36.0); Mean Corpuscular Hemoglobin 30.1 pg (27.0-31.0); Mean Corpuscular Volume 87.4 fL (78.0-98.0); Mean Platelet Volume 8.2 fL (7.4-10.4); Platelet Count 280 thou/uL (130-400); RBC Distribution Width 12.1 % (11.5-14.5); Red Blood Cell (RBC) Count 4.17 mill/uL (4.20-5.40); White Blood Cell (WBC) Count 7.3 thou/uL (4.8-10.8)
[2017-11-05 03:59] LABS: ALT (SGPT) 16 U/L (8-55); AST (SGOT) 19 U/L (5-34); Albumin 4.1 g/dL (3.5-5.0); Alkaline Phosphatase 107 U/L (40-150); Anion Gap 14 mmol/L (10-20); BUN (Urea Nitrogen) 15 mg/dL (7.0-18.7); Bilirubin, Total 0.5 mg/dL (0.2-1.2); Calc. Creatinine Clearance 0 mL/min (70-130); Calcium 9.6 mg/dL (7.8-10.44); Carbon Dioxide 24 mmol/L (22-29); Chloride 105 mmol/L (98-107); Estimated GFR-MDRD 78; Globulin 3.1 g/dL (2.4-3.5); Glucose 113 mg/dL (70-105); Lipase 8 U/L (8-78); Potassium 3.5 mmol/L (3.5-5.1); Protein, Total 7.2 g/dL (6.0-8.3); Sodium 139 mmol/L (136-145)
[2017-11-05] MEDS ORDERED: Ketorolac Tromethamine 30 MG/ML VIAL ONE (04:07)
== END 2017-11-05 04:46 | disposition home or self-care (01) ==
LOC: ERS 03:12
DX: R10.10 Upper abdominal pain, unspecified (principal); E03.9 Hypothyroidism, unspecified; F41.9 Anxiety disorder, unspecified; F90.9 Attention-deficit hyperactivity disorder, unspecified type; F43.10 Post-traumatic stress disorder, unspecified; F31.9 Bipolar disorder, unspecified; Z86.718 Personal history of other venous thrombosis and embolism; Z79.899 Other long term (current) drug therapy
CPT/HCPCS: 36415; 80053; 83690; 85025; 96361; 96374; 96375; J1885; J2270; J2405

== ENCOUNTER 2017-11-22 09:51 | Inpatient (IN) | payer SELFPAY ==
[2017-11-22] MEDS ORDERED: Morphine 4 MG/ML VIAL ONE ×2 (10:31→12:34)
[2017-11-22] MEDS ORDERED: Ondansetron HCl/PF 4 MG/2 ML Vial ONE (10:32)
[2017-11-22 11:07] LABS: Bilirubin Small (Negative); Blood, Urine Negative (Negative); Clarity CLOUDY (Clear); Glucose, Urine (Dipstick) Negative (Negative); Leukocyte Small (Negative); Nitrite Negative (Negative); Protein, Urine (Dipstick) Trace mg/dL (Neg-Trace); Specific Gravity, Urine 1.027 (1.002-1.036); Urobilinogen 0.2 mg/dL (0.2-1.0); pH, Urine 5.5 (5.0-9.0)
[2017-11-22 11:13] LABS: Bacteria/HPF 4+ HPF (None Seen); WBC/HPF 21-50 HPF (0-3)
[2017-11-22 11:14] LABS: Pathc Cast-AUWi Flag 6.68 (0-2.49)
[2017-11-22 11:15] LABS: Hyaline Casts/LPF 0-3 HYALINE CAST LPF (0-3 Hyaline); Manual Microscopic Reviewed? No Path Casts Seen
--- NOTE | 2017-11-22 11:42 | RAD ---
RADIOGRAPH CHEST 1 VIEW: HISTORY: 47-year-old female with dyspnea. FINDINGS: There are no air space densities, pulmonary edema, pneumothorax, or cardiomegaly. The lateral costop hrenic angles are sharp. IMPRESSION: No acute cardiopulmonary findings. [email or web address] [] POS: [facility]
[2017-11-22 11:50] LABS: INR-International Normal Ratio 0.9; Prothrombin Time 12.3 SEC (12.0-14.7)
[2017-11-22 11:51] LABS: PTT 21.3 SEC (22.9-36.1)
[2017-11-22 11:57] LABS: #Eosinphils 0.1 thou/uL (0.0-0.7); #Monocytes 0.5 thou/uL (0.11-0.59); #Neutrophils 6.1 thou/uL (1.40-6.50); %Basophils 0.5 % (0.0-1.0); %Eosinophils 1.2 % (0.0-10.0); %Monocytes 5.3 % (0.0-10.0); Hemoglobin 12.6 g/dL (12.0-16.0); Mean Corpuscular HGB CONC 32.1 g/dL (32.0-36.0); Mean Corpuscular Hemoglobin 28.5 pg (27.0-31.0); Mean Corpuscular Volume 88.6 fL (78.0-98.0); Mean Platelet Volume 8.9 fL (7.4-10.4); Platelet Count 144 thou/uL (130-400); RBC Distribution Width 12.3 % (11.5-14.5); Red Blood Cell (RBC) Count 4.44 mill/uL (4.20-5.40); White Blood Cell (WBC) Count 8.8 thou/uL (4.8-10.8)
[2017-11-22 12:05] LABS: ALT (SGPT) 27 U/L (8-55); AST (SGOT) 35 U/L (5-34); Albumin 4.2 g/dL (3.5-5.0); Alkaline Phosphatase 135 U/L (40-150); Anion Gap 12 mmol/L (10-20); BUN (Urea Nitrogen) 10 mg/dL (7.0-18.7); Bilirubin, Total 0.8 mg/dL (0.2-1.2); Calc. Creatinine Clearance 0 mL/min (70-130); Calcium 9.6 mg/dL (7.8-10.44); Carbon Dioxide 22 mmol/L (22-29); Chloride 105 mmol/L (98-107); Estimated GFR-MDRD 68; Globulin 3.1 g/dL (2.4-3.5); Glucose 81 mg/dL (70-105); Lipase 853 U/L (8-78); Potassium 3.4 mmol/L (3.5-5.1); Protein, Total 7.3 g/dL (6.0-8.3); Sodium 136 mmol/L (136-145)
[2017-11-22 12:13] LABS: CKMB 2.5 ng/mL (0-6.6); Troponin I Less than 0.010 ng/mL (< 0.028)
[2017-11-22] MEDS ORDERED: Ketorolac Tromethamine 30 MG/ML VIAL IVP PRN (13:36)
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
[2017-11-22 14:15] VITALS: BMI 38.5
[2017-11-22] MEDS: Sodium Chloride 0.9% 1,000 ML IV SCH ×3 (15:16→23:35)
[2017-11-22] MEDS: Morphine 4 MG/ML VIAL SLOW IVP PRN ×2 (18:44→23:15)
[2017-11-22] MEDS: Ondansetron HCl/PF 4 MG/2 ML Vial IVP PRN (19:32)
[2017-11-22] MEDS: Famotidine/PF 20 mg/2ml Vial SLOW IVP SCH (21:36)
[2017-11-22] MEDS: clonazePAM 1 MG TAB PO SCH (21:36)
[2017-11-22] MEDS: DULoxetine 30 MG CAP PO SCH (21:36)
[2017-11-22] MEDS: Nortriptyline HCl 25 MG CAP PO SCH (21:40)
[2017-11-23] MEDS: Morphine 4 MG/ML VIAL SLOW IVP PRN ×3 (03:36→14:05)
[2017-11-23] MEDS: Levothyroxine Sodium 88 MCG TAB PO SCH (03:37)
[2017-11-23] MEDS: Sodium Chloride 0.9% 1,000 ML IV SCH ×4 (03:41→21:09)
[2017-11-23 04:31] LABS: #Eosinphils 0.1 thou/uL (0.0-0.7); #Lymphocytes 0.9 thou/uL (1.20-3.40); #Monocytes 0.4 thou/uL (0.11-0.59); #Neutrophils 4.1 thou/uL (1.40-6.50); %Basophils 0.6 % (0.0-1.0); %Eosinophils 1.5 % (0.0-10.0); %Monocytes 7.3 % (0.0-10.0); %Neutrophils 73.5 % (42.0-75.0); Hemoglobin 11.1 g/dL (12.0-16.0); Mean Corpuscular HGB CONC 31.5 g/dL (32.0-36.0); Mean Corpuscular Hemoglobin 28.7 pg (27.0-31.0); Mean Corpuscular Volume 90.9 fL (78.0-98.0); Mean Platelet Volume 9.1 fL (7.4-10.4); Platelet Count 198 thou/uL (130-400); RBC Distribution Width 12.4 % (11.5-14.5); Red Blood Cell (RBC) Count 3.88 mill/uL (4.20-5.40); White Blood Cell (WBC) Count 5.5 thou/uL (4.8-10.8)
[2017-11-23 04:53] LABS: Anion Gap 12 mmol/L (10-20); BUN (Urea Nitrogen) 7 mg/dL (7.0-18.7); Calc. Creatinine Clearance 155 mL/min (70-130); Calcium 8.4 mg/dL (7.8-10.44); Carbon Dioxide 20 mmol/L (22-29); Chloride 109 mmol/L (98-107); Estimated GFR-MDRD 85; Glucose 82 mg/dL (70-105); Potassium 3.6 mmol/L (3.5-5.1); Sodium 137 mmol/L (136-145)
[2017-11-23] MEDS ORDERED: Acetaminophen 1,000 MG in Premix Bag 1 BAG IVPB PRN (05:18)
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
[2017-11-23] MEDS: Bupropion 150 MG XL TAB PO SCH (08:45)
[2017-11-23] MEDS: Famotidine/PF 20 mg/2ml Vial SLOW IVP SCH ×2 (08:45→21:12)
[2017-11-23] MEDS: clonazePAM 1 MG TAB PO SCH ×3 (08:45→21:23)
[2017-11-23] MEDS: Enoxaparin Sodium 40 MG/0.4 ML SYRINGE SC SCH (08:47)
[2017-11-23 09:25] LABS: Cardiac Risk 3.9 (Less than 4.5)
[2017-11-23] MEDS ORDERED: Iopamidol 370 76% 100 ML VIAL ONE (10:50)
[2017-11-23] MEDS: Ondansetron HCl/PF 4 MG/2 ML Vial IVP PRN ×2 (11:16→17:12)
--- NOTE | 2017-11-23 12:09 | CT ---
CT ABDOMEN AND PELVIS WITH AND WITHOUT IV CONTRAST: History: Pancreatitis. Worsening abdominal pain. Comparison: 10-06-17 FINDINGS: Minimal right pleural fluid. Gallbladder is surgically absent. Common duct measures up to 1.2 cm diam eter. Mild distention of the biliary system within the left liver lobe. Arterial phase imaging shows heterogeneous enhancement throughout the liver that does persist on the portal venous phase imaging. This may be related to chronic congestion. Urinary bladder is incompletely distended. Follicle in the right ovary. Degenerative changes lumbar spine. IMPRESSION: 1. No significant inflammation of the pancreas is apparent on CT. 2. Mild distention of the biliary system is noted but has been seen intermittently on previous CT exa ms. 3. Very small right pleural effusion. POS: [facility]
[2017-11-23] MEDS: Ampicillin/Sulbactam 1.5 GM in Sodium Chloride 0.9% 100 ML IVPB SCH ×2 (12:11→17:44)
--- NOTE | 2017-11-23 12:49 | PRG ---
DATE OF SERVICE: 11/23/2017 This is an addendum to the note of Dr. Moreno Berg. Ms. Tran is a 47-year-old white female who has had almost 1 dozen ER visits in the last several month s for abdominal pain. Earlier this year she had a cholecystectomy and appendectomy. She complains o f epigastric pain radiating through into her back, associated with nausea. Her lipase was elevated t o over 800. Our tentative diagnosis is acute pancreatitis. Given the fact that she is not improving with conservative management we will get a repeat CT abdomen today. We may consult with GI based up on findings given that we have no etiology of her pancreatitis.
[2017-11-23] MEDS: Morphine 4 MG/ML VIAL SLOW IVP SCH ×2 (17:12→21:11)
[2017-11-23] MEDS: Acetaminophen 1,000 MG in Premix Bag 1 BAG IVPB SCH (17:44)
[2017-11-23] MEDS: DULoxetine 30 MG CAP PO SCH (21:10)
[2017-11-23] MEDS: Nortriptyline HCl 25 MG CAP PO SCH (21:23)
[2017-11-24] MEDS: Acetaminophen 1,000 MG in Premix Bag 1 BAG IVPB SCH ×4 (00:23→17:25)
[2017-11-24] MEDS: Ampicillin/Sulbactam 1.5 GM in Sodium Chloride 0.9% 100 ML IVPB SCH ×4 (00:23→18:41)
[2017-11-24] MEDS: Morphine 4 MG/ML VIAL SLOW IVP SCH ×7 (00:47→20:46)
[2017-11-24] MEDS: Levothyroxine Sodium 88 MCG TAB PO SCH (05:59)
[2017-11-24] MEDS: Sodium Chloride 0.9% 1,000 ML IV SCH ×2 (06:02→17:17)
--- NOTE | 2017-11-24 07:03 | PDOC.FM ---
- Objective MAR Reviewed: Yes Vital Signs & Weight: Vital Signs (12 hours) Temp Pulse Resp BP Pulse Ox 11/24/17 00:01 94/53 L 11/23/17 20:00 98.5 F 88 16 94/58 L 95 Weight Weight 105.007 kg I&O: 11/22/17 11/23/17 11/24/17 06:59 06:59 06:59 Intake Total 5096 Output Total 600 Balance 4496 Result Diagrams: 11/23/17 03:31 11/23/17 03:31 Dx/Plan (1) Pancreatitis Code(s): K85.90 - ACUTE PANCREATITIS WITHOUT NECROSIS OR INFECTION, UNSP Status: Acute (2) Hypothyroidism Code(s): E03.9 - HYPOTHYROIDISM, UNSPECIFIED Status: Acute (3) Depression Code(s): F32.9 - MAJOR DEPRESSIVE DISORDER, SINGLE EPISODE, UNSPECIFIED Status : Acute (4) Anxiety Code(s): F41.9 - ANXIETY DISORDER, UNSPECIFIED Status: Acute - Plan Plan: This is a 47 yo female with a PMH of anxiety/depression Pancreatitis -Lipase was 853. [place]'s criteria is 0. Pt. has received 4 liters and NS is decreased to 125ml/hr. CT of abdomen shows no signs of serious pancreatic or renal pathology. Per nursing note, pt's pain was adequately controlled. We are redrawing labs today to obtain 48 tunde's. Due to pt's improvement we will likely refer pt. to GI outpt. We will assess pt. appetite today and attempt to advance diet if appropriate. UTI -Exam yesterday was not convincing of UTI. UA was dirty but had large amount of squamous cells. Pt. has history of nephrolitiasis and so we are adding unasyn to her treatment plan. CT made no mention of kidneys. Personal review of CT shows no gross renal abnormalities. Hypothyroidism -Continue home meds Anxiety/depression -Continue home meds Code: Full Prophylaxis: Pepcid, lovenox Family: none at bedside Disposition: home in 1-2 days
[2017-11-24 07:57] LABS: ALT (SGPT) 110 U/L (8-55); AST (SGOT) 90 U/L (5-34); Albumin 3.4 g/dL (3.5-5.0); Alkaline Phosphatase 259 U/L (40-150); Anion Gap 11 mmol/L (10-20); BUN (Urea Nitrogen) 6 mg/dL (7.0-18.7); Bilirubin, Total 3.6 mg/dL (0.2-1.2); Calc. Creatinine Clearance 176 mL/min (70-130); Calcium 8.5 mg/dL (7.8-10.44); Carbon Dioxide 21 mmol/L (22-29); Chloride 104 mmol/L (98-107); Estimated GFR-MDRD Greater than 90; Globulin 2.6 g/dL (2.4-3.5); Glucose 66 mg/dL (70-105); Potassium 3.4 mmol/L (3.5-5.1); Sodium 133 mmol/L (136-145)
[2017-11-24 07:58] LABS: #Eosinphils 0.2 thou/uL (0.0-0.7); #Lymphocytes 1.1 thou/uL (1.20-3.40); #Monocytes 0.5 thou/uL (0.11-0.59); #Neutrophils 3.8 thou/uL (1.40-6.50); %Basophils 0.1 % (0.0-1.0); %Eosinophils 3.2 % (0.0-10.0); %Lymphocytes 19.4 % (21.0-51.0); %Monocytes 9.4 % (0.0-10.0); %Neutrophils 67.9 % (42.0-75.0); Hemoglobin 10.8 g/dL (12.0-16.0); Mean Corpuscular HGB CONC 31.8 g/dL (32.0-36.0); Mean Corpuscular Hemoglobin 28.5 pg (27.0-31.0); Mean Corpuscular Volume 89.5 fL (78.0-98.0); Mean Platelet Volume 8.4 fL (7.4-10.4); Platelet Count 180 thou/uL (130-400); RBC Distribution Width 12.2 % (11.5-14.5); White Blood Cell (WBC) Count 5.6 thou/uL (4.8-10.8)
[2017-11-24] MEDS: Bupropion 150 MG XL TAB PO SCH (09:24)
[2017-11-24] MEDS: Famotidine/PF 20 mg/2ml Vial SLOW IVP SCH ×2 (09:24→20:44)
[2017-11-24] MEDS: clonazePAM 1 MG TAB PO SCH ×3 (09:24→20:45)
[2017-11-24] MEDS: Enoxaparin Sodium 40 MG/0.4 ML SYRINGE SC SCH (09:25)
[2017-11-24] MEDS ORDERED: PROPOFOL 200 MG/20 ML VIAL ONE (11:26)
[2017-11-24] MEDS ORDERED: Succinylcholine Chloride 20 MG/ML 10 ml SYRINGE FS ONE (11:26)
[2017-11-24] MEDS ORDERED: Metoclopramide HCl 10 MG/2 ML VIAL ONE (11:26)
[2017-11-24] MEDS ORDERED: Dexamethasone 20 MG/5 ML VIAL ONE (11:26)
[2017-11-24] MEDS ORDERED: Lidocaine 1% PF 5 ML VIAL ONE (11:26)
[2017-11-24] MEDS ORDERED: Ondansetron HCl/PF 4 MG/2 ML Vial ONE (11:26)
--- NOTE | 2017-11-24 12:02 | PRG ---
DATE OF SERVICE: 11/24/2017 This is an addendum to the note of Dr. Moreno Berg. Ms. Tran has finally gotten some relief of her epigastric pain. We repeated her labs this morning. Her bilirubin has now risen to 3.8. Her AST had risen to 90, ALT risen to 110 and her alkaline phosp hatase has risen to 259 with an LDH of 441. These are consistent with a possible common bile duct ob struction. This could be related to recurrent stone, stricture, or tumor. We will consult GI for ER CP.
[2017-11-24] MEDS ORDERED: Scopolamine 1.5 mg/72 hour Patch ONE (13:36)
[2017-11-24] MEDS ORDERED: Iothalamate Meglumine 60% 50 ML VIAL FS ONE ×2 (13:37→13:38)
[2017-11-24] MEDS ORDERED: Indomethacin 50 MG SUPP ONE (13:38)
[2017-11-24] MEDS ORDERED: Fentanyl 100 MCG/2 ML VIAL ONE ×2 (13:45→15:24)
--- NOTE | 2017-11-24 14:02 | CON ---
DATE OF CONSULTATION: 11/24/2017 REASON FOR CONSULTATION: Abdominal pain. HISTORY: Ms. Kailyn Tran is a 47-year-old female who was admitted to the hospital with evidence of pa ncreatitis. She reports having severe intense upper abdominal pain localized to the epigastrium, ini tially associated with nausea, but without any vomiting. She has had this recurrent pain for the las t 3 years, but has been much more frequent in the last 6 months. The pain is described as in the epi gastrium without radiation, 10/10, characterized as sharp and stabbing. On admission, she did have e vidence of pancreatitis with her lipase elevated to 800. Currently, she feels fine with pain medicat ion. The patient has had previous cholecystectomy for cholelithiasis. In reviewing her records, her intraoperative cholangiogram suggests possible filling defect versus air bubbles. She has had an MR I that showed a liver mass that was biopsied. However, biopsy did not show any malignancy, just some nonspecific inflammatory changes. She is otherwise without any GI symptoms in between attacks. [place] el function has been regular. There is no visible GI bleeding. She does report having occasional bl ack stool with episodes of pain. PAST MEDICAL HISTORY: 1. Status post cholecystectomy. 2. Appendectomy 3. Hysterectomy. 4. Status post x2. 5. Anxiety, depression. ALLERGIES: LATEX, SULFA, and ADHESIVE TAPE. HOME MEDICATIONS: Clonazepam, nortriptyline, levothyroxine, Cymbalta and Wellbutrin. SOCIAL HISTORY: The patient denies any tobacco or alcohol usage. FAMILY HISTORY: Negative for any known GI problem, liver disease or GI malignancy. REVIEW OF SYSTEMS: A 10-point review of systems did not show any other pertinent positive or negativ e. PHYSICAL EXAMINATION: VITAL SIGNS: Temperature is 97.7, blood pressure 96/59, pulse of 77. GENERAL: She is alert, conversant, in no distress. HEENT: Sclerae are anicteric. Oropharynx clear. NECK: Supple. CARDIOVASCULAR: Shows normal S1, S2 regular rate and rhythm. CHEST: Shows normal breath sounds. ABDOMEN: Soft, protuberant, nontender, good bowel sounds. No bruit. EXTREMITIES: Shows no edema. LABORATORY DATA: WBC is 5.6, hemoglobin 10.8, platelet count of 180. Electrolytes within normal ran ge, creatinine 0.64, bilirubin 3.6 up from 0.8 2 days ago. Alkaline phosphatase 259, AST 90, ALT 110 , lipase on admission was 853. Abdominal pelvic CT performed yesterday showed common duct measured 1.2 cm. Pancreas appears normal and viable without any significant inflammation. No other notable findings. ASSESSMENT: Patient has slight high likelihood of choledocholithiasis given presentation of abdomina l pain, mild pancreatitis, and elevation of her liver panel. She also has a clinical history of recu rrent upper abdominal pain with other negative workup in the past including EGD and colonoscopy and o ther imaging modalities. RECOMMENDATIONS: I would proceed with ERCP with possible papillotomy and stone extraction. Indicati on including risks not limited to bleeding, perforation and pancreatitis were reviewed with Ms. Tran. All questions answered. She agrees to proceed.
[2017-11-24] MEDS ORDERED: Promethazine HCl 25 MG/ML VIAL IM PRN (16:59)
[2017-11-24] MEDS ORDERED: Promethazine HCl 25 MG/ML VIAL SLOW IVP PRN (16:59)
[2017-11-24] MEDS ORDERED: Ondansetron HCl/PF 4 MG/2 ML Vial IVP PRN (16:59)
--- NOTE | 2017-11-24 18:02 | RAD ---
ERCP 11/24/17 HISTORY: Pain and nausea. COMPARISON: 11/01/14. EXPOSURE: 5.4 minutes. 69.26 Gy*cm2. FINDINGS: Fluoroscopy was provided for ERCP. There is dilatation of the extrahepatic biliary system likely due to previous cholecystectomy. No filling defects. The intrahepatic biliary system is unremarkable. IMPRESSION: Fluoroscopy as above. POS: [facility]
--- NOTE | 2017-11-24 19:36 | OP ---
DATE OF SERVICE: 11/24/2017 PROCEDURE: Endoscopic retrograde cholangiopancreatography with papillotomy. SURGEON: Quincy Garcia M.D. MEDICATION: PREOPERATIVE DIAGNOSES: 1. Recurrent epigastric pain. 2. Pancreatitis. 3. Elevation of liver panel associated with dilated common bile duct to 1.2 cm on imaging study. 4. Status post cholecystectomy. POSTOPERATIVE DIAGNOSES: 1. Dilated common bile duct to 15 mm. 2. No obvious filling defect. 3. Very dark bile. PROCEDURE IN DETAIL: A written consent was obtained prior to procedure. After adequate sedation, si de view endoscope was advanced down the stomach through pylorus into duodenum. The ampulla was visua lized and appeared normal. The opening of the bile duct was situated actually above on the superior aspect of the ampulla. Selective cannulation performed using a papillotome was successful. Injectio n of contrast showed a uniformly dilated common bile duct to approximately 15 mm. The left intrahepa tic bile duct filled. The right intrahepatic biliary tree did not fill. Using a 15 mm balloon, occl usive cholangiogram was performed. The right intrahepatic bile duct did fill. Injection of contrast did not show any obvious filling defect. However, very dark, almost black bile was seen flowing. U sing a sphincterotome, a papillotomy was performed in the 12 o'clock position. There is not much bassam m to cut. However, the ampulla was able to extend much wider. Occlusive cholangiogram was performed . Sweeping the bile duct did not show any obvious filling defect or stone. Again noted was very dayday k bile suggesting a previous obstructive process. The balloon was withdrawn. There is copious empty ing of the bile from the bile duct. Patient tolerated the procedure without any immediate complicati on. ASSESSMENT: 1. Very dilated common bile duct with dark bile without any obvious stone. 2. Status post sphincterotomy. PLAN: Advance diet and observe.
[2017-11-24] MEDS: Nortriptyline HCl 25 MG CAP PO SCH (20:44)
[2017-11-24] MEDS: DULoxetine 30 MG CAP PO SCH (20:45)
[2017-11-25] MEDS: Ampicillin/Sulbactam 1.5 GM in Sodium Chloride 0.9% 100 ML IVPB SCH ×5 (00:13→23:26)
[2017-11-25] MEDS: Sodium Chloride 0.9% 1,000 ML IV SCH ×3 (00:13→10:04)
[2017-11-25] MEDS: Morphine 4 MG/ML VIAL SLOW IVP SCH ×4 (01:30→13:37)
[2017-11-25] MEDS: Levothyroxine Sodium 88 MCG TAB PO SCH (05:19)
--- NOTE | 2017-11-25 06:35 | PDOC.FM ---
- Subjective Subjective: Pt. reports her pain is better controlled. She reports 5/10 right before they give the next dose of pain meds. She does report bloating and some nausea after eating some potato soup. Denies cp, SOB, or headaches. Pt. reports an episode of diarrhea last night. - Objective MAR Reviewed: Yes Vital Signs & Weight: Vital Signs (12 hours) Temp Pulse Resp BP Pulse Ox 11/25/17 04:10 97.5 F L 74 18 96/63 93 L 11/25/17 00:35 97.8 F 79 16 97/62 94 L 11/24/17 20:45 94 L 11/24/17 19:12 97.4 F L 82 18 114/71 92 L 11/24/17 18:45 80 16 115/70 96 Weight Weight 105.007 kg I&O: 11/23/17 11/24/17 11/25/17 06:59 06:59 06:59 Intake Total 5096 2250 Output Total 600 Balance 4496 2250 Result Diagrams: 11/25/17 06:37 11/25/17 06:37 Phys Exam - Physical Examination Constitutional: NAD HEENT: moist MMs Neck: no JVD Respiratory: no wheezing, clear to auscultation bilateral Cardiovascular: RRR, no significant murmur Gastrointestinal: soft, no distention, positive bowel sounds Epigastric tenderness Musculoskeletal: no edema, pulses present Neurological: moves all 4 limbs Psychiatric: A&O x 3 Skin: normal turgor Dx/Plan (1) Pancreatitis Code(s): K85.90 - ACUTE PANCREATITIS WITHOUT NECROSIS OR INFECTION, UNSP Status: Acute (2) Hypothyroidism Code(s): E03.9 - HYPOTHYROIDISM, UNSPECIFIED Status: Acute (3) Depression Code(s): F32.9 - MAJOR DEPRESSIVE DISORDER, SINGLE EPISODE, UNSPECIFIED Status : Acute (4) Anxiety Code(s): F41.9 - ANXIETY DISORDER, UNSPECIFIED Status: Acute - Plan Plan: This is a 47 yo female with a PMH of anxiety/depression Pancreatitis -Lipase was 853. [place]'s criteria is 0. Pt. has received 4 liters and NS is decreased to 125ml/hr. CT of abdomen shows no signs of serious pancreatic or renal pathology. Pt. underwent ERCP yesterday which showed no filling defects but signs of previous obstructive process. We are advancing pt's diet this AM and will see how she tolerates this. UTI -Exam yesterday was not convincing of UTI. UA was dirty but had large amount of squamous cells. Pt. has history of nephrolitiasis and so we are adding unasyn to her treatment plan (11/23). I would consider stopping today. CT made no mention of kidneys. Personal review of CT shows no gross renal abnormalities. Hypothyroidism -Continue home meds Anxiety/depression -Continue home meds Code: Full Prophylaxis: Pepcid, lovenox Family: none at bedside Disposition: home in 1-2 days
[2017-11-25 06:53] LABS: #Lymphocytes 0.6 thou/uL (1.20-3.40); #Monocytes 0.4 thou/uL (0.11-0.59); #Neutrophils 5.9 thou/uL (1.40-6.50); %Basophils 0.2 % (0.0-1.0); %Eosinophils 0.3 % (0.0-10.0); %Monocytes 5.2 % (0.0-10.0); %Neutrophils 85.4 % (42.0-75.0); Hemoglobin 11.3 g/dL (12.0-16.0); Mean Corpuscular HGB CONC 32.6 g/dL (32.0-36.0); Mean Corpuscular Hemoglobin 29.2 pg (27.0-31.0); Mean Corpuscular Volume 89.4 fL (78.0-98.0); Mean Platelet Volume 8.8 fL (7.4-10.4); Platelet Count 204 thou/uL (130-400); RBC Distribution Width 12.2 % (11.5-14.5); Red Blood Cell (RBC) Count 3.87 mill/uL (4.20-5.40)
[2017-11-25 07:44] LABS: ALT (SGPT) 92 U/L (8-55); AST (SGOT) 45 U/L (5-34); Albumin 3.7 g/dL (3.5-5.0); Alkaline Phosphatase 264 U/L (40-150); Anion Gap 10 mmol/L (10-20); BUN (Urea Nitrogen) Less than 4 mg/dL (7.0-18.7); Bilirubin, Total 0.8 mg/dL (0.2-1.2); Calc. Creatinine Clearance 157 mL/min (70-130); Calcium 8.9 mg/dL (7.8-10.44); Carbon Dioxide 22 mmol/L (22-29); Chloride 108 mmol/L (98-107); Estimated GFR-MDRD 86; Globulin 2.9 g/dL (2.4-3.5); Glucose 122 mg/dL (70-105); Magnesium 2.2 mg/dL (1.6-2.6); Phosphorus 1.8 mg/dL (2.3-4.7); Potassium 3.6 mmol/L (3.5-5.1); Protein, Total 6.6 g/dL (6.0-8.3); Sodium 136 mmol/L (136-145)
[2017-11-25] MEDS: Bupropion 150 MG XL TAB PO SCH (09:22)
[2017-11-25] MEDS: clonazePAM 1 MG TAB PO SCH ×3 (09:23→20:02)
[2017-11-25] MEDS: Famotidine/PF 20 mg/2ml Vial SLOW IVP SCH ×2 (09:24→20:02)
[2017-11-25] MEDS: Ondansetron HCl/PF 4 MG/2 ML Vial IVP PRN (09:27)
[2017-11-25] MEDS: Enoxaparin Sodium 40 MG/0.4 ML SYRINGE SC SCH (09:27)
--- NOTE | 2017-11-25 13:44 | PRG ---
DATE OF SERVICE: 11/25/2017 SUBJECTIVE: The patient is feeling better. Her pain is resolved. She seems to be tolerating full l iquids fairly well. OBJECTIVE: VITAL SIGNS: Temperature 98.0, pulse 82, respiratory rate 12, blood pressure 107/69. HEENT: Unremarkable. NECK: Supple. CHEST: Clear. CARDIOVASCULAR: Regular rate and rhythm. ABDOMEN: Soft, nontender, without organomegaly or masses. LABORATORY DATA: Shows a total bilirubin 0.8, AST 45, ALT 92, alkaline phosphatase 264. ASSESSMENT: 1. Pancreatitis. 2. Ampullary stenosis versus small choledocholithiasis. 3. Granulomatous liver disease. RECOMMENDATIONS: 1. Recheck the LFTs. 2. Diagnostic workup for granulomatous liver disease. 3. Stable for discharge from GI standpoint once the patient's pain is manageable.
[2017-11-25] MEDS: Ibuprofen 800 MG TAB PO SCH (16:11)
[2017-11-25] MEDS: Acetaminophen 500 MG TAB PO SCH ×2 (16:17→21:15)
[2017-11-25] MEDS: Morphine 4 MG/ML VIAL SLOW IVP PRN (17:57)
[2017-11-25] MEDS: Nortriptyline HCl 25 MG CAP PO SCH (20:02)
[2017-11-25] MEDS: DULoxetine 30 MG CAP PO SCH (20:02)
[2017-11-26] MEDS: Ibuprofen 800 MG TAB PO SCH ×3 (00:30→14:45)
[2017-11-26] MEDS: Morphine 4 MG/ML VIAL SLOW IVP PRN (02:31)
[2017-11-26] MEDS: Sodium Chloride 0.9% 1,000 ML IV SCH ×2 (02:34→13:09)
[2017-11-26] MEDS: Acetaminophen 500 MG TAB PO SCH ×3 (03:42→14:45)
[2017-11-26 06:19] LABS: Syphilis Antibody Nonreactive (Nonreactive); Syphilis Antibody Index 0.05 S/CO (<1.00 Non-Reactive)
[2017-11-26] MEDS ORDERED: traMADol HCl 50 MG TAB PO PRN (06:20)
--- NOTE | 2017-11-26 06:23 | PDOC.FM ---
- Subjective Subjective: Pt. states her pain is improved this morning. She still reports it as a 4 but states it is controlled. She states that she had an omelet for breakfast and that caused some pain. - Objective MAR Reviewed: Yes Vital Signs & Weight: Vital Signs (12 hours) Temp Pulse Resp BP Pulse Ox 11/25/17 20:00 92 L 11/25/17 19:22 98.0 F 85 18 107/68 92 L Weight Weight 105.007 kg I&O: 11/24/17 11/25/17 11/26/17 06:59 06:59 06:59 Intake Total 2250 3400 Balance 2250 3400 Result Diagrams: 11/25/17 06:37 11/26/17 04:27 Phys Exam - Physical Examination Constitutional: NAD Pt. appears in better mood HEENT: moist MMs Neck: no JVD Respiratory: no wheezing, clear to auscultation bilateral Cardiovascular: RRR, no significant murmur Gastrointestinal: soft, positive bowel sounds Epigastric pain with moderate palpation. Musculoskeletal: pulses present Neurological: moves all 4 limbs Psychiatric: A&O x 3 Skin: normal turgor Dx/Plan (1) Pancreatitis Code(s): K85.90 - ACUTE PANCREATITIS WITHOUT NECROSIS OR INFECTION, UNSP Status: Acute (2) Hypothyroidism Code(s): E03.9 - HYPOTHYROIDISM, UNSPECIFIED Status: Acute (3) Depression Code(s): F32.9 - MAJOR DEPRESSIVE DISORDER, SINGLE EPISODE, UNSPECIFIED Status : Acute (4) Anxiety Code(s): F41.9 - ANXIETY DISORDER, UNSPECIFIED Status: Acute - Plan Plan: This is a 47 yo female with a PMH of anxiety/depression Pancreatitis -Lipase was 853. Arron's criteria is 0. Pt. has received 4 liters and NS is decreased to 125ml/hr. CT of abdomen shows no signs of serious pancreatic or renal pathology. Pt. underwent ERCP yesterday which showed no filling defects but signs of previous obstructive process. We are advancing pt's diet this AM and will see how she tolerates this. Switching pain medications over to PO. Dr. Lee has order labs looking for granulomatosis liver disease. UTI -Exam yesterday was not convincing of UTI. UA was dirty but had large amount of squamous cells. Pt. has history of nephrolitiasis and so we are adding unasyn to her treatment plan (11/23). I would consider stopping today. CT made no mention of kidneys. Personal review of CT shows no gross renal abnormalities. Hypothyroidism -Continue home meds Anxiety/depression -Continue home meds Code: Full Prophylaxis: Pepcid, lovenox Family: none at bedside Disposition: Likely home today barring no issues with lunch
[2017-11-26] MEDS: Ampicillin/Sulbactam 1.5 GM in Sodium Chloride 0.9% 100 ML IVPB SCH (06:38)
[2017-11-26] MEDS: Levothyroxine Sodium 88 MCG TAB PO SCH (06:39)
[2017-11-26] MEDS ORDERED: Morphine 4 MG/ML VIAL SLOW IVP SCH (07:00)
[2017-11-26 08:02] LABS: ALT (SGPT) 66 U/L (8-55); AST (SGOT) 24 U/L (5-34); Albumin 3.5 g/dL (3.5-5.0); Alkaline Phosphatase 208 U/L (40-150); Anion Gap 10 mmol/L (10-20); BUN (Urea Nitrogen) Less than 4 mg/dL (7.0-18.7); Bilirubin, Total 0.5 mg/dL (0.2-1.2); Calc. Creatinine Clearance 148 mL/min (70-130); Calcium 8.9 mg/dL (7.8-10.44); Carbon Dioxide 25 mmol/L (22-29); Chloride 109 mmol/L (98-107); Estimated GFR-MDRD 81; Globulin 2.6 g/dL (2.4-3.5); Glucose 94 mg/dL (70-105); Potassium 3.1 mmol/L (3.5-5.1); Protein, Total 6.1 g/dL (6.0-8.3); Sodium 141 mmol/L (136-145)
[2017-11-26] MEDS: clonazePAM 1 MG TAB PO SCH ×2 (08:38→14:45)
[2017-11-26] MEDS: Bupropion 150 MG XL TAB PO SCH (08:38)
[2017-11-26] MEDS: Enoxaparin Sodium 40 MG/0.4 ML SYRINGE SC SCH (09:49)
[2017-11-26] MEDS: Famotidine/PF 20 mg/2ml Vial SLOW IVP SCH (09:50)
[2017-11-26] MEDS: Ondansetron HCl/PF 4 MG/2 ML Vial IVP PRN (09:50)
--- NOTE | 2017-11-26 11:51 | PRG ---
DATE OF SERVICE: 11/26/2017 Ms. Tran is still having slight epigastric pain, but overall she states she feels much improved from admission. We will continue to slowly advance her diet in anticipation of hopefully discharging her later this afternoon or tomorrow.
[2017-11-26] MEDS ORDERED: Potassium Chloride 20 MEQ TAB PO SCH (12:00)
[2017-11-26 12:34] LABS: ANA Symphony (Qualitative) Negative (Negative); dsDNA IgG Antibody 1.8 IU/mL (<10 Negative)
[2017-11-26 16:23] VITALS: BP 109/74; TEMP 98.3
--- NOTE | 2017-11-27 15:37 | EKG ---
Test Reason : Blood Pressure : / mmHG Vent. Rate : 087 BPM Atrial Rate : 087 BPM P-R Int : 152 ms QRS Dur : 096 ms QT Int : 380 ms P-R-T Axes : 048 -18 040 degrees QTc Int : 457 ms Normal sinus rhythm Possible Left atrial enlargement Borderline ECG Confirmed by ETHEL DOE ([id number]), scientific editor KELVIN DUFF ([id number] on 11/27/2017 3:37:34 PM Referred By: Confirmed By:ETHEL DOE
== END 2017-11-26 17:40 | disposition home or self-care (01) | DRG 440 ==
LOC: ERS 09:51 → 2SW 14:01 → OBSVTOIN 14:01 → T4-A 11-23 16:36
PROVIDERS: ADMIT Family Medicine; ATTEND Family Medicine
PROC: 0F798ZZ Dilation of Common Bile Duct, Via Natural or Artificial Opening Endoscopic (ICD-10-PCS; principal; 2017-11-24)
PROC: BF101ZZ Fluoroscopy of Bile Ducts using Low Osmolar Contrast (ICD-10-PCS; 2017-11-24)
DX: K85.10 Biliary acute pancreatitis without necrosis or infection (principal); F41.9 Anxiety disorder, unspecified; F32.9 Major depressive disorder, single episode, unspecified; E03.9 Hypothyroidism, unspecified; Z88.2 Allergy status to sulfonamides; K75.3 Granulomatous hepatitis, not elsewhere classified
CPT/HCPCS: 36415; 71045; 74178; 74330; 80048; 80053; 80061; 81003; 81015; 82164; 82553; 83520; 83605; 83615; 83690; 83735; 84100; 84443; 84484; 85025; 85610; 85730; 86038; 86225; 86256; 86780; 87086; 93005; 96361; 96374; 96375; 96376; A4216; J0131; J0295; J1100; J1650; J1885; J2001; J2270; J2405; J2704; J2765; J3010; J7050; Q9961; S0028

== ENCOUNTER 2017-11-27 17:57 | Emergency (ER) | payer SELFPAY ==
[2017-11-27 18:29] LABS: #Basophils 0.1 thou/uL (0.0-0.2); #Eosinphils 0.3 thou/uL (0.0-0.7); #Lymphocytes 2.5 thou/uL (1.20-3.40); #Monocytes 0.6 thou/uL (0.11-0.59); %Basophils 0.9 % (0.0-1.0); %Eosinophils 3.1 % (0.0-10.0); %Lymphocytes 26.3 % (21.0-51.0); %Monocytes 6.1 % (0.0-10.0); %Neutrophils 63.7 % (42.0-75.0); Hemoglobin 11.4 g/dL (12.0-16.0); Mean Corpuscular HGB CONC 32.8 g/dL (32.0-36.0); Mean Corpuscular Hemoglobin 29.3 pg (27.0-31.0); Mean Corpuscular Volume 89.3 fL (78.0-98.0); Mean Platelet Volume 8.2 fL (7.4-10.4); Platelet Count 247 thou/uL (130-400); RBC Distribution Width 12.6 % (11.5-14.5); Red Blood Cell (RBC) Count 3.88 mill/uL (4.20-5.40); White Blood Cell (WBC) Count 9.5 thou/uL (4.8-10.8)
[2017-11-27 18:38] LABS: Bilirubin Negative (Negative); Blood, Urine Negative (Negative); Clarity CLEAR (Clear); Glucose, Urine (Dipstick) Negative (Negative); Leukocyte Negative (Negative); Nitrite Negative (Negative); Protein, Urine (Dipstick) Negative (Neg-Trace); Specific Gravity, Urine 1.006 (1.002-1.036); Urobilinogen 0.2 mg/dL (0.2-1.0)
[2017-11-27 18:48] LABS: ALT (SGPT) 46 U/L (8-55); AST (SGOT) 18 U/L (5-34); Albumin 3.7 g/dL (3.5-5.0); Alkaline Phosphatase 193 U/L (40-150); Anion Gap 14 mmol/L (10-20); BUN (Urea Nitrogen) 7 mg/dL (7.0-18.7); Bilirubin, Total 0.5 mg/dL (0.2-1.2); Calc. Creatinine Clearance 0 mL/min (70-130); Calcium 9.8 mg/dL (7.8-10.44); Carbon Dioxide 25 mmol/L (22-29); Chloride 101 mmol/L (98-107); Estimated GFR-MDRD 85; Glucose 96 mg/dL (70-105); Lipase 30 U/L (8-78); Potassium 3.4 mmol/L (3.5-5.1); Protein, Total 6.7 g/dL (6.0-8.3); Sodium 137 mmol/L (136-145)
[2017-11-27] MEDS ORDERED: Morphine 2 MG/ML SYRINGE ONE (19:32)
--- NOTE | 2017-11-27 19:56 | CT ---
CT ABDOMEN AND PELVIS WITH IV CONTRAST 11/27/17 HISTORY: Abdominal pain. Recent pancreatitis. COMPARISON: 11/23/17 FINDINGS: Minimal residual atelectasis at the right lung base. Gallbladder is surgically absent. Pneumobilia is apparent, likely related to recent ERCP. The spleen, kidneys, adrenal glands, and pancreas are unremarkable. No inflammation is evident. Lack of oral contrast limits evaluation of the bowel. No evidence of obstruction. 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 The urinary bladder is unremarkable. IMPRESSION: Postoperative changes. No acute abnormalities are apparent. No inflammation of the pancreas is visibl e. POS: [facility]
== END 2017-11-27 21:08 | disposition home or self-care (01) ==
LOC: ERS 17:57
DX: R10.9 Unspecified abdominal pain (principal); I34.1 Nonrheumatic mitral (valve) prolapse; E03.9 Hypothyroidism, unspecified; F41.9 Anxiety disorder, unspecified; F90.9 Attention-deficit hyperactivity disorder, unspecified type; F31.9 Bipolar disorder, unspecified; F43.10 Post-traumatic stress disorder, unspecified; Z86.718 Personal history of other venous thrombosis and embolism; Z79.899 Other long term (current) drug therapy
CPT/HCPCS: 36415; 74177; 80053; 81003; 83690; 85025; 93005; 96374; J2270

== ENCOUNTER 2017-12-11 22:01 | Emergency (ER) | payer SELFPAY ==
--- NOTE | 2017-12-11 22:46 | RAD ---
AP VIEW OF THE PELVIS: 12/11/17 INDICATION: Fall with hip and back pain. FINDINGS: No acute fracture or subluxation is evident. There is a surgical staple seen within the right hemipel vis. There are numerous phleboliths within the lower pelvis. Mild degenerative change is seen involvi ng the lower lumbar spine. IMPRESSION: No acute osseous abnormality. POS: [facility]
--- NOTE | 2017-12-11 22:48 | RAD ---
LUMBAR SPINE THREE VIEWS: 12/11/17 INDICATION: Slip and fall with low back pain. FINDINGS: There are five lumbar type vertebrae. Spinal alignment is preserved. There is mild disc degenerative disease of the lower lumbar spine. IMPRESSION: No acute osseous abnormality. Mild spondylosis of the lumbar spine. POS: [facility]
--- NOTE | 2017-12-11 22:49 | RAD ---
THREE VIEWS LEFT HAND: 12/11/17 INDICATION: Left hand pain after fall. COMPARISON: None. FINDINGS: No acute fracture or subluxation is evident. No radiopaque foreign body is demonstrated. IMPRESSION: No acute osseous abnormality. POS: [facility]
[2017-12-11] MEDS ORDERED: Ketorolac Tromethamine 30 MG/ML VIAL ONE (22:56)
== END 2017-12-11 23:00 | disposition home or self-care (01) ==
LOC: ERS 22:01
DX: M54.5 Low back pain (principal); E03.9 Hypothyroidism, unspecified; F42.9 Obsessive-compulsive disorder, unspecified; F31.9 Bipolar disorder, unspecified; F90.9 Attention-deficit hyperactivity disorder, unspecified type; Z86.718 Personal history of other venous thrombosis and embolism; Z79.899 Other long term (current) drug therapy; W01.0XXA Fall on same level from slipping, tripping and stumbling without subsequent striking against object, initial encounter
CPT/HCPCS: 72100; 72170; 96372; J1885

== ENCOUNTER 2018-04-08 07:18 | Outpatient (CLI) | payer OTHER ==
--- NOTE | 2018-04-08 09:41 | MRI ---
MRI ABDOMEN WITH AND WITHOUT CONTRAST: HISTORY: R10.32, epigastric pain. K52.9, chronic diarrhea. R16.0. COMPARISON: CT abdomen and pelvis from 11/27/2017. FINDINGS: No pleural effusion. No pericardial fluid. Prior cholecystectomy. No abnormal enhancing hepatic ma ss. No evidence for cholangitis. No intrahepatic or extrahepatic biliary dilatation. The spleen is normal, as well as the pancreas. No abnormal renal mass. The adrenal glands are normal. No dilated loops of bowel in the upper abdomen. Background marrow signal in the spine is normal. No significant hepatic steatosis. No retroperitoneal adenopathy. Aortic contour is nonaneurysmal. IMPRESSION: Normal examination. POS: [facility]
[2018-04-08] MEDS ORDERED: Gadobenate Dimeglumine 529 MG/1 ML (20ML VIAL) ONE (09:51)
== END 2018-04-08 07:19 | disposition home or self-care (01) ==
LOC: MRI 07:18
PROVIDERS: ATTEND Internal Medicine Gastroenterology
DX: K52.9 Noninfective gastroenteritis and colitis, unspecified (principal); R10.13 Epigastric pain; R16.0 Hepatomegaly, not elsewhere classified
CPT/HCPCS: 74183; A9577

== ENCOUNTER 2018-06-01 16:04 | Emergency (ER) | payer OTHER ==
[2018-06-01 17:30] LABS: #Basophils 0.1 thou/uL (0.0-0.2); #Eosinphils 0.2 thou/uL (0.0-0.7); #Monocytes 0.5 thou/uL (0.11-0.59); %Basophils 1.3 % (0.0-1.0); %Monocytes 5.8 % (0.0-10.0); %Neutrophils 51.9 % (42.0-75.0); Hemoglobin 12.9 g/dL (12.0-16.0); Mean Corpuscular HGB CONC 33.6 g/dL (32.0-36.0); Mean Corpuscular Hemoglobin 30.5 pg (27.0-31.0); Mean Corpuscular Volume 90.8 fL (78.0-98.0); Mean Platelet Volume 8.5 fL (7.4-10.4); Platelet Count 237 thou/uL (130-400); RBC Distribution Width 11.6 % (11.5-14.5); Red Blood Cell (RBC) Count 4.23 mill/uL (4.20-5.40); White Blood Cell (WBC) Count 7.7 thou/uL (4.8-10.8)
[2018-06-01 17:37] LABS: PTT 34.3 SEC (22.9-36.1); Prothrombin Time 12.9 SEC (12.0-14.7)
[2018-06-01 17:39] LABS: D-Dimer Test 0.3 *mcg/mL (0.27-0.43)
--- NOTE | 2018-06-01 18:00 | ULT ---
EXAM: Bilateral lower extremity venous duplex: Deep veins evaluated with color Doppler, spectral analysis, and compression. INDICATIONS: Bilateral lower extremity pain and edema. FINDINGS: Deep veins interrogated include common femoral vein, femoral vein, popliteal vein, and posterior tibi al vein. These veins show normal compression and blood flow. No evidence of DVT. IMPRESSION: Negative Bilateral venous duplex exam.
[2018-06-01 18:01] LABS: ALT (SGPT) 23 U/L (8-55); AST (SGOT) 23 U/L (5-34); Albumin 4.2 g/dL (3.5-5.0); Alkaline Phosphatase 103 U/L (40-150); Anion Gap 15 mmol/L (10-20); BUN (Urea Nitrogen) 15 mg/dL (7.0-18.7); Bilirubin, Total 0.3 mg/dL (0.2-1.2); Calc. Creatinine Clearance 0 mL/min (70-130); Calcium 9.7 mg/dL (7.8-10.44); Carbon Dioxide 27 mmol/L (22-29); Chloride 104 mmol/L (98-107); Estimated GFR-MDRD 60; Glucose 82 mg/dL (70-105); Lipase 16 U/L (8-78); Potassium 3.7 mmol/L (3.5-5.1); Protein, Total 7.2 g/dL (6.0-8.3); Sodium 142 mmol/L (136-145)
--- NOTE | 2018-06-01 18:17 | CT ---
CT PULMONARY ANGIOGRAM WITH IV CONTRAST AND 3D POSTPROCESSIN06/01/18 HISTORY: Chest pain. FINDINGS: There is good contrast opacification of the pulmonary artery vasculature without filling defects to s uggest pulmonary embolism. The thoracic aorta is well opacified without aneurysm or dissection. No pl eural or pericardial effusions are seen. There are mild patchy ground glass infiltrates in the lung f ields bilaterally. The upper abdominal tomograms demonstrate changes of cholecystectomy and intrabiliary air. IMPRESSION: No CT evidence of pulmonary embolism. POS: [facility]
[2018-06-01] MEDS ORDERED: methylPREDNISolone Sod Succ/PF 125 MG/2 ML VIAL ONE (19:53)
[2018-06-01] MEDS ORDERED: Azithromycin 250 MG TAB ONE (19:53)
--- NOTE | 2018-06-04 15:38 | EKG ---
Test Reason : Blood Pressure : / mmHG Vent. Rate : 071 BPM Atrial Rate : 071 BPM P-R Int : 148 ms QRS Dur : 096 ms QT Int : 428 ms P-R-T Axes : 044 -27 015 degrees QTc Int : 465 ms Normal sinus rhythm Minimal voltage criteria for LVH, may be normal variant Borderline ECG Confirmed by CATHIE HERNANDEZ ([id number]), international editorial producer MELBA BETTENCOURT ([id number]) on 06/04/2018 3:38:12 PM Referred By: Confirmed By:CATHIE HERNANDEZ
== END 2018-06-01 20:18 | disposition home or self-care (01) ==
LOC: ERS 16:04
DX: J18.9 Pneumonia, unspecified organism (principal); E03.9 Hypothyroidism, unspecified; Z86.711 Personal history of pulmonary embolism; Z86.718 Personal history of other venous thrombosis and embolism; F43.10 Post-traumatic stress disorder, unspecified; F31.9 Bipolar disorder, unspecified; F90.9 Attention-deficit hyperactivity disorder, unspecified type; Z79.899 Other long term (current) drug therapy
CPT/HCPCS: 71275; 80053; 83690; 83880; 84484; 85025; 85379; 85610; 85730; 93005; 93970; 96374; J2930

== ENCOUNTER 2018-06-08 14:31 | Emergency (ER) | payer OTHER ==
[2018-06-08 15:24] LABS: #Lymphocytes 1.1 thou/uL (1.20-3.40); #Monocytes 0.1 thou/uL (0.11-0.59); #Neutrophils 9.3 thou/uL (1.40-6.50); %Basophils 0.1 % (0.0-1.0); %Eosinophils 0.1 % (0.0-10.0); %Lymphocytes 10.5 % (21.0-51.0); %Monocytes 1.1 % (0.0-10.0); %Neutrophils 88.1 % (42.0-75.0); Hemoglobin 13.3 g/dL (12.0-16.0); Mean Corpuscular HGB CONC 34.1 g/dL (32.0-36.0); Mean Corpuscular Hemoglobin 30.7 pg (27.0-31.0); Mean Corpuscular Volume 90.2 fL (78.0-98.0); Mean Platelet Volume 8.4 fL (7.4-10.4); Platelet Count 256 thou/uL (130-400); RBC Distribution Width 11.8 % (11.5-14.5); Red Blood Cell (RBC) Count 4.33 mill/uL (4.20-5.40); White Blood Cell (WBC) Count 10.6 thou/uL (4.8-10.8)
--- NOTE | 2018-06-08 15:36 | RAD ---
PA CHEST: HISTORY: Recent diagnosis of pneumonia. Chest heaviness. COMPARISON: Prior chest film from 11/22/2017. FINDINGS: The lungs show no evidence of infiltrate. Some stranding in the left lung base may represent mild at electasis. Vascular markings are within the normal range. The heart and mediastinum are unremarkabl e. IMPRESSION: No acute process identified. POS: [facility]
[2018-06-08 15:37] LABS: ALT (SGPT) 11 U/L (8-55); AST (SGOT) 13 U/L (5-34); Albumin 4.4 g/dL (3.5-5.0); Alkaline Phosphatase 97 U/L (40-150); Anion Gap 15 mmol/L (10-20); BUN (Urea Nitrogen) 18 mg/dL (7.0-18.7); Bilirubin, Total 0.3 mg/dL (0.2-1.2); CK (CPK) 70 U/L (29-168); Calc. Creatinine Clearance 0 mL/min (70-130); Calcium 9.6 mg/dL (7.8-10.44); Carbon Dioxide 25 mmol/L (22-29); Chloride 104 mmol/L (98-107); Estimated GFR-MDRD 64; Globulin 2.6 g/dL (2.4-3.5); Glucose 129 mg/dL (70-105); Lipase 15 U/L (8-78); Potassium 3.5 mmol/L (3.5-5.1); Sodium 140 mmol/L (136-145)
--- NOTE | 2018-06-08 15:43 | RAD ---
EXAM: Single view of the chest HISTORY: Shortness of breath COMPARISON: 06/08/2018 FINDINGS: Single lateral view of the chest shows a normal sized cardiomediastinal silhouette. There i s no evidence of consolidation, mass, or pleural effusion. The bones are unremarkable. IMPRESSION: Unremarkable exam
--- NOTE | 2018-06-08 15:45 | RAD ---
LUMBAR SPINE THREE VIEWS: HISTORY: Back pain. FINDINGS: The lumbar vertebrae maintain normal height and alignment. The disk spaces are preserved. No significant degenerative osteophytes. Mild facet hypertrophy at L4-L5 and L5-S1. IMPRESSION: Evidence of mild facet hypertrophy in the lower lumbar spine. Examination is otherwise unremarkable. POS: [facility]
[2018-06-08] MEDS ORDERED: Ketorolac Tromethamine 30 MG/ML VIAL ONE (16:18)
== END 2018-06-08 16:35 | disposition home or self-care (01) ==
LOC: ERS 14:31
DX: J20.9 Acute bronchitis, unspecified (principal); M54.6 Pain in thoracic spine; E03.9 Hypothyroidism, unspecified; Z86.718 Personal history of other venous thrombosis and embolism; F90.9 Attention-deficit hyperactivity disorder, unspecified type; F43.10 Post-traumatic stress disorder, unspecified; F31.9 Bipolar disorder, unspecified; Z79.899 Other long term (current) drug therapy; Z79.51 Long term (current) use of inhaled steroids
CPT/HCPCS: 36415; 71045; 72100; 80053; 82550; 83605; 83690; 83880; 84484; 85025; 86850; 86900; 86901; 87040; 93005; 94760; 96372; J1885

== ENCOUNTER 2018-06-29 15:31 | Outpatient (CLI) | payer OTHER ==
--- NOTE | 2018-06-29 16:09 | ULT ---
Thyroid sonogram HISTORY: Hypothyroidism. FINDINGS: Right thyroid lobe is 4.0 cm length and left is 4.0 cm. Isthmus is 0.3 cm. Normal/homogeneo us echotexture. No focal mass. IMPRESSION: Normal thyroid sonogram.
== END 2018-06-29 15:32 | disposition home or self-care (01) ==
LOC: BICULT 15:31
DX: E03.9 Hypothyroidism, unspecified (principal)
CPT/HCPCS: 76536

== ENCOUNTER 2018-08-17 12:08 | Outpatient (CLI) | payer OTHER ==
--- NOTE | 2018-08-17 13:46 | MRI ---
EXAM: MRI cervical spine without contrast HISTORY: Cervical pain/myelopathy and bilateral radiculopathy with tingling in both extremities and n umbness COMPARISON: None TECHNIQUE: Multiplanar multisequence MR images were obtained of the cervical spine without contrast. FINDINGS: The vertebral bodies and intervertebral discs demonstrate normal height and alignment without fractur e or subluxation. The visualized cord demonstrates normal signal throughout. The craniocervical junction is unremarkab le. The prevertebral soft tissues are unremarkable. No paraspinal soft tissue abnormality is seen. C2/3: No significant posterior bulge or protrusion. No posterior facet arthrosis. No central canal stenosis. No neural foraminal stenosis. C3/4: No significant posterior bulge or protrusion. No posterior facet arthrosis. No central canal stenosis. No neural foraminal stenosis. C4/5: There is a small central protrusion. No posterior facet arthrosis. Mild central canal stenosi s. No neural foraminal stenosis. C5/6: There is a small central protrusion. No posterior facet arthrosis. Mild central canal stenosi s. No neural foraminal stenosis. C6/7: No significant posterior bulge or protrusion. No posterior facet arthrosis. No central canal stenosis. No neural foraminal stenosis. C7/T1: No significant posterior bulge or protrusion. No posterior facet arthrosis. No central canal stenosis. No neural foraminal stenosis. IMPRESSION: Small protrusions at C4/5 and C5/6 with mild central canal stenosis.
--- NOTE | 2018-08-17 14:21 | MRI ---
EXAM: MRI Thoracic Spine WO Con PROVIDED CLINICAL HISTORY: Thoracic back pain. Myelopathy. Patient states burning, tingling, numbness and bilateral extremities upper and lower. No known injury. COMPARISON: None FINDINGS: The visualized retroperitoneal structures demonstrate a normal MRI appearance. Paravertebral soft tissues have a normal appearance. Spinal cord demonstrates normal contour and signal intensity. There are scattered small less than 1 cm increased T1 and T2-weighted signal intensity foci within th e thoracic vertebral bodies likely representing small hemangiomas versus focal areas of fat. There is slight height loss along the superior endplates of the T4 and T5 vertebral bodies, but there is no abnormal signal intensity seen in these vertebral bodies on the fluid sensitive sequence suggesting minimal remote compression deformities of these vertebral bodies. There is no significant intradural or extradural defect seen. The central spinal canal and neural for chuck are widely patent all levels of the thoracic spine. Conus medullaris is not completely imaged but likely terminates at the L1-2 level. IMPRESSION: 1. Central spinal canal and neural foramina are patent all levels of the thoracic spine. 2. Findings suggestive of remote minimal compression deformities involving the T4 and T5 vertebral jame dies.
--- NOTE | 2018-08-17 14:29 | MRI ---
MRI Lumbar Spine Noncontrast: HISTORY: Lumbar radiculopathy/lumbar pain. Patient states low back pain with bilateral radiculopathy. Numbness tingling, pain, and burning lower extremities. COMPARISON: None FINDINGS: The visualized retroperitoneal structures demonstrate a normal appearance. Conus medullaris is normal in morphology and terminates at the L1-2 level. There are scattered subcentimeter foci of increased T1 and T2-weighted signal intensity into bodies l ikely due to small hemangiomas and/or focal areas of fat. L1-2: There is no disc bulge or disc herniation. Central spinal canal and neural foramina are patent. L2-3: There is no disc bulge or disc herniation. Central spinal canal and neural foramina are patent. L3-4: There is a minimal right foraminal disc protrusion resulting in mild encroachment on the right neural foramen and exiting right L3 nerve root.. Central spinal canal and left neural foramen at this level are patent L4-5: There is a mild broad-based disc osteophyte complex present. This results in very slight efface ment of the ventral aspect of thecal sac. There are facet degenerative changes at this level. Mild right and moderate left-sided neural foraminal narrowing is present. Central spinal canal is patent. L5-S1: There is no disc bulge or disc herniation. Central spinal canal and neural foramina are patent . IMPRESSION: Mild disc degenerative changes at the L3-4 and L4-5 levels. Moderate left-sided neural foraminal narr owing is present at the L4-5 level.
== END 2018-08-17 12:09 | disposition home or self-care (01) ==
LOC: BICMRI 12:08
PROVIDERS: ATTEND Neurological Surgery
DX: M51.16 Intervertebral disc disorders with radiculopathy, lumbar region (principal); M51.06 Intervertebral disc disorders with myelopathy, lumbar region; M54.6 Pain in thoracic spine; M54.2 Cervicalgia; M48.061 Spinal stenosis, lumbar region without neurogenic claudication; M50.021 Cervical disc disorder at C4-C5 level with myelopathy; M48.02 Spinal stenosis, cervical region
CPT/HCPCS: 72141; 72146; 72148

== ENCOUNTER 2018-10-01 14:17 | Emergency (ER) | payer OTHER ==
[2018-10-01 15:10] LABS: #Basophils 0.1 thou/uL (0.0-0.2); #Eosinphils 0.3 thou/uL (0.0-0.7); #Monocytes 0.4 thou/uL (0.11-0.59); #Neutrophils 3.4 thou/uL (1.40-6.50); %Basophils 1.4 % (0.0-1.0); %Eosinophils 3.6 % (0.0-10.0); %Lymphocytes 41.4 % (21.0-51.0); %Monocytes 6.2 % (0.0-10.0); %Neutrophils 47.4 % (42.0-75.0); Hemoglobin 12.3 g/dL (12.0-16.0); Mean Corpuscular HGB CONC 33.7 g/dL (32.0-36.0); Mean Corpuscular Hemoglobin 31.4 pg (27.0-31.0); Mean Platelet Volume 8.8 fL (7.4-10.4); Platelet Count 204 thou/uL (130-400); RBC Distribution Width 11.3 % (11.5-14.5); Red Blood Cell (RBC) Count 3.94 mill/uL (4.20-5.40); White Blood Cell (WBC) Count 7.2 thou/uL (4.8-10.8)
[2018-10-01 15:31] LABS: ALT (SGPT) 11 U/L (8-55); AST (SGOT) 16 U/L (5-34); Albumin 4.3 g/dL (3.5-5.0); Alkaline Phosphatase 78 U/L (40-150); Anion Gap 14 mmol/L (10-20); BUN (Urea Nitrogen) 15 mg/dL (7.0-18.7); Bilirubin, Total 0.2 mg/dL (0.2-1.2); Calc. Creatinine Clearance 0 mL/min (70-130); Calcium 9.1 mg/dL (7.8-10.44); Carbon Dioxide 28 mmol/L (22-29); Chloride 100 mmol/L (98-107); Estimated GFR-MDRD 61; Globulin 2.9 g/dL (2.4-3.5); Glucose 115 mg/dL (70-105); Potassium 3.7 mmol/L (3.5-5.1); Protein, Total 7.2 g/dL (6.0-8.3); Sodium 138 mmol/L (136-145)
[2018-10-01 15:47] LABS: Bacteria/HPF None Seen HPF (None Seen); Bilirubin Negative (Negative); Blood, Urine Negative (Negative); Clarity Clear (Clear); Glucose, Urine (Dipstick) Normal (Negative); Leukocyte 25 Leu/uL (Negative); Nitrite Negative (Negative); Protein, Urine (Dipstick) Negative (Neg-Trace); RBC/HPF 0-3 HPF (0-3); Squamous Epithelial 0-3 HPF (0-3); Urobilinogen Normal mg/dL (Less than 2); WBC/HPF 0-3 HPF (0-3)
[2018-10-01 15:48] LABS: Pregnancy Test - Urine (BHCG) Negative (Negative); Pregu Control Background? CLEAR/WHITE (CLR/WHITE); Pregu Control Bar Appear? YES (CONTROL BAR); Specific Gravity 1.013 (1.002-1.036)
[2018-10-01] MEDS ORDERED: Gadobenate Dimeglumine 529 MG/1 ML (20ML VIAL) ONE (16:18)
[2018-10-01 17:54] LABS: INR-International Normal Ratio 0.9; PTT 30.6 SEC (22.9-36.1); Prothrombin Time 12.5 SEC (12.0-14.7)
[2018-10-01] MEDS ORDERED: Fentanyl 100 MCG/2 ML VIAL ONE (18:02)
[2018-10-01] MEDS ORDERED: Lorazepam 2 MG/ML VIAL ONE (18:03)
[2018-10-01 18:06] LABS: CK (CPK) 168 U/L (29-168); Lipase 69 U/L (8-78)
--- NOTE | 2018-10-01 20:02 | MRI ---
MRI LUMBAR SPINE WITH AND WITHOUT CONTRAST: HISTORY: Polyneuropathy and hyperthyroidism. The patient is having difficulty with urination. Urinary incont inence. COMPARISON: 05/19/2013 TECHNIQUE: Multiplanar, multisequence MR images were obtained of the lumbar spine without contrast. FINDINGS: This exam is limited secondary to significant motion artifact. The vertebral bodies and intervertebr al disks demonstrate normal height and alignment without fracture or subluxation. The prevertebral a nd paraspinal soft tissues are unremarkable. The conus medullaris terminates normally at T12-L1. No abnormal enhancement is seen on this exam, and no abnormal enhancement is seen within the tip of the spinal cord. T12-L1: Unremarkable. L1-L2: Unremarkable. L2-L3: Unremarkable. L3-L4: Unremarkable. L4-L5: A small generalized concentric disk bulge is seen. Mild bilateral posterior facet arthrosis. No central canal stenosis. Mild bilateral neural foraminal stenosis. L5-S1: Unremarkable. IMPRESSION: No significant lumbar spine abnormality. POS: [facility]
[2018-10-01] MEDS ORDERED: Ketorolac Tromethamine 30 MG/ML VIAL ONE (20:14)
[2018-10-01] MEDS ORDERED: Morphine 4 MG/ML VIAL ONE (20:14)
== END 2018-10-01 22:10 | disposition home or self-care (01) ==
LOC: ERS 14:17
DX: R32 Unspecified urinary incontinence (principal); M54.5 Low back pain; E03.9 Hypothyroidism, unspecified; Z86.711 Personal history of pulmonary embolism; Z86.718 Personal history of other venous thrombosis and embolism; F41.9 Anxiety disorder, unspecified; F32.9 Major depressive disorder, single episode, unspecified; F42.9 Obsessive-compulsive disorder, unspecified; F90.9 Attention-deficit hyperactivity disorder, unspecified type; F43.10 Post-traumatic stress disorder, unspecified; Z79.899 Other long term (current) drug therapy; Z79.52 Long term (current) use of systemic steroids
CPT/HCPCS: 36415; 51702; 72158; 80053; 81003; 81015; 81025; 82550; 83605; 83690; 83880; 84484; 85025; 85610; 85652; 85730; 86140; 87040; 96361; 96374; 96375; A4353; A9577; J1885; J2060; J2270; J3010

== ENCOUNTER 2019-01-11 14:49 | Observation (INO) | payer OTHER ==
[~2019-01-11 14:49] MED LIST changes: -ISOVUE-370 76%-LOCM 1 ML ONE; +Iopamidol-370 76% 500 ML 1 ML ONE
[2019-01-11 15:32] LABS: #Basophils 0.1 thou/uL (0.0-0.2); #Eosinphils 0.3 thou/uL (0.0-0.7); #Lymphocytes 3.3 thou/uL (1.20-3.40); #Monocytes 0.6 thou/uL (0.11-0.59); #Neutrophils 5.6 thou/uL (1.40-6.50); %Basophils 1.3 % (0.0-1.0); %Eosinophils 3.2 % (0.0-10.0); %Neutrophils 56.6 % (42.0-75.0); Hemoglobin 12.3 g/dL (12.0-16.0); Mean Corpuscular HGB CONC 34.4 g/dL (32.0-36.0); Mean Corpuscular Hemoglobin 31.3 pg (27.0-31.0); Mean Corpuscular Volume 90.9 fL (78.0-98.0); Mean Platelet Volume 8.8 fL (7.4-10.4); Platelet Count 265 thou/uL (130-400); RBC Distribution Width 11.5 % (11.5-14.5); Red Blood Cell (RBC) Count 3.94 mill/uL (4.20-5.40); White Blood Cell (WBC) Count 9.9 thou/uL (4.8-10.8)
[2019-01-11 15:57] LABS: ALT (SGPT) 11 U/L (8-55); AST (SGOT) 12 U/L (5-34); Acetaminophen Less than 6.0 mcg/mL (10.0-30.0); Albumin 4.4 g/dL (3.5-5.0); Alcohol Less than 10 mg/dL (Less than 10); Alkaline Phosphatase 105 U/L (40-110); Anion Gap 13 mmol/L (10-20); BUN (Urea Nitrogen) 26 mg/dL (7.0-18.7); Bilirubin, Total 0.4 mg/dL (0.2-1.2); Calc. Creatinine Clearance 0 mL/min (70-130); Calcium 9.6 mg/dL (7.8-10.44); Carbon Dioxide 25 mmol/L (22-29); Chloride 102 mmol/L (98-107); Estimated GFR-MDRD 23; Globulin 3.2 g/dL (2.4-3.5); Glucose 122 mg/dL (70-105); Potassium 4.3 mmol/L (3.5-5.1); Protein, Total 7.6 g/dL (6.0-8.3); Salicylate Less than 8.0 mg/dL (15.0-30.0); Sodium 136 mmol/L (136-145)
[2019-01-11] MEDS ORDERED: Ondansetron ODT 4 MG TAB ONE (18:52)
[2019-01-11 19:08] LABS: Bilirubin Negative (Negative); Blood, Urine Negative (Negative); Clarity Clear (Clear); Glucose, Urine (Dipstick) Normal (Negative); Leukocyte Negative Leu/uL (Negative); Nitrite Negative (Negative); Protein, Urine (Dipstick) Negative (Neg-Trace); RBC/HPF 0-3 HPF (0-3); Squamous Epithelial 0-3 HPF (0-3); Urobilinogen Normal mg/dL (Less than 2); WBC/HPF 0-3 HPF (0-3)
[2019-01-11 19:20] LABS: Bacteria/HPF 1+ HPF (None Seen); Calcium Oxalate Crystals 1+ HPF (None Seen)
--- NOTE | 2019-01-11 20:35 | CT ---
HEAD CT WITHOUT CONTRAST: 01/11/19 COMPARISON: None. HISTORY: Syncope, dizziness with headache. TECHNIQUE: Axial CT imaging at 5 mm intervals from vertex through the skull base without contrast. FINDINGS: Imaged paranasal sinuses and mastoid air cells well aerated. No displaced calvarial fracture. No intr acranial hemorrhage, midline shift, mass effect or ventricular enlargement. IMPRESSION: No acute findings. POS: [facility]
[2019-01-11] MEDS ORDERED: Morphine 4 MG/ML VIAL ONE (20:54)
--- NOTE | 2019-01-11 21:22 | CT ---
Exam: CT angiogram chest with 3-D rendering: CT angiogram abdomen with 3-D rendering: FINDINGS: Status post cholecystectomy with minimally dilated common bile duct and some pneumobilia. Small fat-c ontaining umbilical hernia. No mediastinal mass or adenopathy. No pleural or pericardial effusion. No significant acute pulmonary parenchymal process. No evidence for thoracic or abdominal aortic aneurysm or dissection. The visualized celiac artery, keller perior mesenteric artery, inferior mesenteric artery, and renal arteries appear unremarkable bilaterally. IMPRESSION: No CT evidence for thoracic or abdominal aortic aneurysm or dissection. Other findings as above.
[2019-01-12] MEDS ORDERED: HYDROcodone/Acetaminophen 5/325 mg Tablet PO PRN (00:22)
[2019-01-12 00:39] VITALS: BMI 39.3
[2019-01-12] MEDS: HYDROcodone/Acetaminophen 5/325 mg Tablet PO PRN ×2 (00:56→06:34)
[2019-01-12 01:30] LABS: Amphetamine Not Detected (NotDetected); Barbiturates Screen Not Detected (NotDetected); Benzodiazepine Screen Detected (NotDetected); Cocaine Metabolite Screen Not Detected (NotDetected); Medtox Control Line Valid? VALID (VALID); Medtox Reader # READER 4; Methadone Not Detected (NotDetected); Methamphetamine Not Detected (NotDetected); Opiate Screen Not Detected (NotDetected); Oxycodone Screen Not Detected (NotDetected); Phencyclidine (PCP) Not Detected (NotDetected); THC/Cannabinoid Screen Not Detected (NotDetected); Tricyclic Screen Not Detected (NotDetected)
--- NOTE | 2019-01-12 08:11 | MRI ---
Brain MRI without contrast: 01/12/2019 COMPARISON: None HISTORY: Dizziness, multiple falls, closed head injury TECHNIQUE: Multiplanar multisequence MR imaging of the brain obtained without contrast FINDINGS: The diffusion weighted imaging demonstrates no evidence for acute infarction and the gradie nt echo imaging demonstrates no evidence for intracranial hemorrhage. Imaged paranasal sinuses/mastoid air cells appear grossly unremarkable. Arterial flow voids at the axial level of the skull base appear grossly unremarkable on the T2-weight ed imaging. The regional bone marrow signal intensity appears within normal limits. No midline shift or mass effect. No ventricular enlargement. There is a single subcentimeter focus of increased T2 and FLAIR signal within the subcortical white matter of the left frontal region of uncertain/doubtful clinical significance. IMPRESSION: No acute findings.
[2019-01-12] MEDS ORDERED: HYDROcodone/Acetaminophen 10/325 mg Tablet PO PRN ×2 (08:42→17:40)
[2019-01-12] MEDS ORDERED: Promethazine 25 MG TAB PO PRN (08:43)
[2019-01-12] MEDS: Sodium Chloride 0.45% 1,000 ML IV SCH ×2 (09:11→20:10)
[2019-01-12] MEDS: Estradiol 1 MG TAB PO SCH (12:40)
[2019-01-12] MEDS: clonazePAM 1 MG TAB PO SCH ×3 (12:40→20:07)
[2019-01-12] MEDS: DULoxetine 30 MG CAP PO SCH (12:40)
[2019-01-12] MEDS: Losartan 25 MG TAB PO SCH (12:40)
[2019-01-12] MEDS: Pregabalin 50 MG CAP PO SCH ×3 (12:42→20:07)
[2019-01-12] MEDS: tiZANidine HCl 4 MG TAB PO SCH ×3 (12:42→20:07)
[2019-01-12] MEDS: Lidocaine 5% Patch TD SCH (13:13)
--- NOTE | 2019-01-12 18:56 | HP ---
The patient's date of observation began 01/11/2019. CHIEF COMPLAINT: One near syncopal episode. HISTORY OF PRESENT ILLNESS: The patient is a 48-year-old female, who has been dizzy for over two weeks. At this particular time, she had gone outside and felt extremely dizzy. Her legs felt weak, which has been going on for several days and they simply gave way. She denies head trauma or actual loss of consciousness and has noticed her dizziness is worse when she stands. She is on numerous medications, as yet unconfirmed or back pain, her etiology is undefined and she is also undergoing a rheumatological evaluation for amyloidosis. PAST MEDICAL HISTORY: Significant for METHAMPHETAMINE DRUG ABUSE. She also has had liver disease with some unknown tumors, mitral valve prolapse, endocarditis treated with antibiotics, hypothyroidism, pulmonary embolism, bilateral DVTs and DVT in her right arm and as mentioned above, she is currently undergoing workup for what may be amyloidosis. Hypertension as well as anxiety disorder, peripheral neuropathy, and "chronic pancreatitis." PAST SURGICAL HISTORY: Includes appendectomy, cholecystectomy, and section. MEDICATIONS: Her medications on admission include; 1. Liothyronine 5 mcg p.o. daily. 2. Tirosint 100 mcg p.o. daily. 3. Clonazepam 2 mg t.i.d. 4. Olmesartan 40 mg daily. 5. Hydrocodone 10/325, she takes 1 to 2 every 4 hours as needed for "chronic pancreatitis.". 6. She takes promethazine 50 mg q.6 hours p.r.n. nausea. 7. She takes Lyrica 100 mg t.i.d. 8. She has stayed on nose spray, which she uses 1 every 4 to 6 hours as needed for pain. 9. Cymbalta 30 mg p.o. daily. 10. Vitamin D 5000 units daily. 11. Estradiol 1 mg p.o. daily. 12. Lasix 40 mg daily. 13. Claritin 10 mg daily. 14. Lidocaine 5% patches applied 12 hours on and 12 hours off. 15. Tizanidine 4 mg p.o. t.i.d. ALLERGIES: HER ALLERGIES ARE TO ADHESIVE TAPE, CODEINE, LATEX GLOVES, SULFA, AND TRAMADOL. REVIEW OF SYSTEMS: CONSTITUTIONAL: She admits to weakness, but denies fever, nausea, vomiting, or diarrhea. HEENT: Denies drainage or sores in ears, nose, and throat. NECK: Supple. CHEST: She states she has shortness of breath, but denies cough. CARDIOVASCULAR: States she has some chest pressure, but denies palpitations. GI: She states she has nausea, but no vomiting or diarrhea. : Denies blood in urine or stool or painful urination. MUSCULOSKELETAL: Has general weakness in both legs and low back pain. SKIN: No new rashes or lesions. NEUROLOGIC: She has had bouts of confusion intermittently associated with the headache. ENDOCRINE: Denies any areas of edema or erythema. PSYCHIATRIC: Apparently has been confused, had some hallucinations according to her . PHYSICAL EXAMINATION: VITAL SIGNS: Blood pressure 122/73, pulse 77, respirations 16, and O2 saturation 98% on room air. CONSTITUTION: Obese, female, alert, oriented, cooperative, in no acute distress. HEENT: Normocephalic and atraumatic. Pupils are equal, round, and reactive to light. Extraocular muscles intact. TMs, nares, and pharynx are clear. NECK: Supple. Trachea midline. CHEST: Clear to auscultation. HEART: Regular rate and rhythm without murmur. ABDOMEN: Soft without organomegaly. : Deferred. EXTREMITIES: Without clubbing, cyanosis, or edema. Normal range of motion in upper and lower extremities. SKIN: Without acute rashes or lesions. NEUROLOGIC: Cranial nerves are intact. Unable to test gait and cerebellar function at the time of evaluation. Sensory exam is grossly intact. LABORATORY DATA: The lab work on admission showed WBCs 9.9, hemoglobin 12.3, and hematocrit 35.8 with a platelet count of 265. Sodium 136, potassium 4.3, chloride 102, CO2 of 25, BUN 26, creatinine 2.27 with a GFR of 23 and a glucose of 122. Liver functions unremarkable. TSH is 2.1 and liver functions like I mentioned are unremarkable. Urine is also unremarkable and toxicology is positive for benzodiazepines. The CT of the head showed no acute findings. MRI of the head, no acute findings. Lumbar spine MRI performed on 10/10 showed no significant lumbar spine abnormality. The CT dissection protocol of the chest also failed to show any significant abnormalities. ASSESSMENT: 1. Vasovagal episode with near syncope. 2. Polypharmacy as probable source of vasovagal episode. PLAN: Plan will be Neurology consultation and released to complete rheumatological workup as an outpatient with electronic plotting system operator when she has been cleared. Job ID: [id number]
[2019-01-12] MEDS ORDERED: Lidocaine Patch Removal 1 EACH TOP SCH (21:00)
[2019-01-12] MEDS: HYDROcodone/Acetaminophen 10/325 mg Tablet PO PRN (23:53)
--- NOTE | 2019-01-13 00:07 | CON ---
DATE OF CONSULTATION: 01/12/2019 CONSULTING PHYSICIAN: Dr. Ocampo. REASON FOR CONSULTATION: Symptoms of a diffuse sensory neuropathy with autonomic instability resulting in orthostatic hypotension and weakness. PLAN: 1. Laboratory studies were ordered. 2. Midodrine 2.5 mg 3 times daily. 3. Discontinue any antihypertensives. 4. Office followup for nerve conduction studies. SUMMARY: Ms. Bai is a 48-year-old white female reports developing some progressive dysesthesias involving the legs and then into her hands. She was thought to have carpal tunnel syndrome and went for bilateral carpal tunnel releases. Her symptoms did not improve. She has hypersensitivity to touch to the skin in all 4 extremities. The dysesthesias have spread up to the thigh level. She had incontinence of bowel while she was sitting in her den the other evening. She has not noticed any loss of control of bladder at this point. She started getting lightheaded and weak when she would stand up. She came in for evaluation. She was noted to have hypotension with a blood pressure of 78/40. She had not had any other documentation prior to this. Her lab work was otherwise unremarkable including a tox screen. She has a history of pancreatitis and shows some mild renal insufficiency as well. PAST MEDICAL HISTORY: As noted. ALLERGIES: MULTIPLE PER CHART. SOCIAL HISTORY: No alcohol abuse or drug use. FAMILY HISTORY: Noncontributory. SYSTEM REVIEW: Ten systems review of systems otherwise negative. PHYSICAL EXAMINATION: GENERAL: She is a well-nourished, middle-aged woman, lying in bed, in no acute distress. VITAL SIGNS: Reviewed. HEENT: Pupils are equal and reactive. Conjunctivae clear. Oropharynx clear. Cranium, normocephalic and atraumatic. NECK: Supple. EXTREMITIES: No cyanosis or edema. NEUROLOGIC: She is alert and cooperative. Her speech is fluent and clear. Cranial nerves 2 through 12 are intact. Motor exam showed good strength in all areas including peripheral muscles. Sensation was subjectively altered to light touch. She could sense heat and call cold at this point. No abnormal movements were seen. SUMMARY: This is a middle-aged woman with a sensory neuropathy and autonomic instability. She is currently on Lyrica for pain management, but is not completely controlling her symptoms. It appears that she has been started on [place] to assist in pain control. We will need to get her blood pressure under control and finish her workup as an outpatient. Job ID: [id number]
[2019-01-13] MEDS: Sodium Chloride 0.45% 1,000 ML IV SCH (04:52)
[2019-01-13] MEDS: HYDROcodone/Acetaminophen 10/325 mg Tablet PO PRN ×2 (04:53→09:14)
[2019-01-13 05:34] LABS: Anion Gap 9 mmol/L (10-20); BUN (Urea Nitrogen) 14 mg/dL (7.0-18.7); Calc. Creatinine Clearance 104 mL/min (70-130); Calcium 9.2 mg/dL (7.8-10.44); Carbon Dioxide 28 mmol/L (22-29); Chloride 103 mmol/L (98-107); Estimated GFR-MDRD 53; Glucose 89 mg/dL (70-105); Potassium 4.4 mmol/L (3.5-5.1); Sodium 136 mmol/L (136-145)
[2019-01-13 05:53] LABS: Band 1 % (5-11); Eosinophils 6 % (0-10); Hemoglobin 11.6 g/dL (12.0-16.0); Lymphocytes 69 % (21-51); MDiff Complete? YES; Mean Corpuscular HGB CONC 33.5 g/dL (32.0-36.0); Mean Corpuscular Hemoglobin 30.8 pg (27.0-31.0); Mean Corpuscular Volume 91.9 fL (78.0-98.0); Mean Platelet Volume 8.8 fL (7.4-10.4); Monocytes 1 % (0-10); Neutrophil 23 % (42-75); Platelet Count 234 thou/uL (130-400); RBC Distribution Width 11.4 % (11.5-14.5); Red Blood Cell (RBC) Count 3.75 mill/uL (4.20-5.40); White Blood Cell (WBC) Count 5.9 thou/uL (4.8-10.8)
[2019-01-13] MEDS ORDERED: Levothyroxine Sodium 100 MCG TAB PO SCH (06:00)
[2019-01-13] MEDS: Pregabalin 50 MG CAP PO SCH (08:24)
[2019-01-13] MEDS: DULoxetine 30 MG CAP PO SCH (08:25)
[2019-01-13] MEDS: tiZANidine HCl 4 MG TAB PO SCH (08:25)
[2019-01-13] MEDS: Losartan 25 MG TAB PO SCH (08:26)
[2019-01-13] MEDS: Lidocaine 5% Patch TD SCH (08:26)
[2019-01-13] MEDS: Estradiol 1 MG TAB PO SCH (08:27)
[2019-01-13] MEDS: clonazePAM 1 MG TAB PO SCH (08:35)
[2019-01-13 08:38] VITALS: TEMP 98.1
[2019-01-13] MEDS ORDERED: clonazePAM 1 MG TAB PO SCH (09:00)
[2019-01-13] MEDS ORDERED: Midodrine HCl 5 MG TAB PO SCH (09:00)
[2019-01-13 10:53] VITALS: BP 122/62
[2019-01-17 19:08] LABS: Arsenic - Blood 5 ug/L (2-23); Lead - Blood None Detected ug/dL (0-4); Mercury - Blood None Detected ug/L (0.0-14.9)
== END 2019-01-13 11:57 | disposition home or self-care (01) ==
LOC: ERS 14:49 → 2NO 01-12 00:30 → INTOOBSV 01-12 00:30 → EEVIPCON 01-12 00:30 → 2NO 01-12 21:16
PROVIDERS: ADMIT Specialist; ATTEND Specialist
DX: G60.8 Other hereditary and idiopathic neuropathies (principal); R55 Syncope and collapse; I10 Essential (primary) hypertension; F41.9 Anxiety disorder, unspecified; E66.9 Obesity, unspecified; Z88.2 Allergy status to sulfonamides; Z79.899 Other long term (current) drug therapy; Z88.5 Allergy status to narcotic agent; Z88.8 Allergy status to other drugs, medicaments and biological substances; Z91.040 Latex allergy status; Z68.39 Body mass index [BMI] 39.0-39.9, adult
CPT/HCPCS: 36415; 70450; 70551; 71275; 72191; 74175; 80048; 80053; 80306; 80307; 81001; 82175; 83655; 83825; 84443; 85025; 93306; 96361; 96374; G0378; J2270; Q0162; Q9967

== ENCOUNTER 2019-01-24 08:44 | Emergency (ER) | payer OTHER ==
[2019-01-24 09:14] LABS: #Basophils 0.1 thou/uL (0.0-0.2); #Eosinphils 0.3 thou/uL (0.0-0.7); #Lymphocytes 2.8 thou/uL (1.20-3.40); #Monocytes 0.7 thou/uL (0.11-0.59); #Neutrophils 6.8 thou/uL (1.40-6.50); %Basophils 0.9 % (0.0-1.0); %Eosinophils 2.8 % (0.0-10.0); %Lymphocytes 26.1 % (21.0-51.0); %Monocytes 6.6 % (0.0-10.0); %Neutrophils 63.6 % (42.0-75.0); Hemoglobin 12.2 g/dL (12.0-16.0); Mean Corpuscular HGB CONC 33.2 g/dL (32.0-36.0); Mean Corpuscular Volume 93.2 fL (78.0-98.0); Platelet Count 253 thou/uL (130-400); RBC Distribution Width 12.3 % (11.5-14.5); Red Blood Cell (RBC) Count 3.94 mill/uL (4.20-5.40); White Blood Cell (WBC) Count 10.7 thou/uL (4.8-10.8)
[2019-01-24 09:19] LABS: Bacteria/HPF 3+ HPF (None Seen); Bilirubin Negative (Negative); Blood, Urine 1+ (Negative); Clarity Turbid (Clear); Glucose, Urine (Dipstick) Normal (Negative); Leukocyte Negative Leu/uL (Negative); Nitrite Negative (Negative); Protein, Urine (Dipstick) 30 mg/dL (Neg-Trace); Urobilinogen Normal mg/dL (Less than 2)
[2019-01-24 09:27] LABS: RBC/HPF 0-3 HPF (0-3)
[2019-01-24] MEDS ORDERED: Ondansetron PF 4 MG/2 ML Vial ONE (09:33)
[2019-01-24] MEDS ORDERED: Ketorolac Tromethamine 30 MG/ML VIAL ONE (09:33)
[2019-01-24 09:39] LABS: ALT (SGPT) 138 U/L (8-55); AST (SGOT) 231 U/L (5-34); Albumin 4.1 g/dL (3.5-5.0); Alkaline Phosphatase 119 U/L (40-110); Anion Gap 16 mmol/L (10-20); BUN (Urea Nitrogen) 22 mg/dL (7.0-18.7); Bilirubin, Total 0.2 mg/dL (0.2-1.2); Calc. Creatinine Clearance 0 mL/min (70-130); Calcium 10.1 mg/dL (7.8-10.44); Carbon Dioxide 24 mmol/L (22-29); Chloride 100 mmol/L (98-107); Estimated GFR-MDRD 35; Globulin 4.2 g/dL (2.4-3.5); Glucose 90 mg/dL (70-105); Lipase 29 U/L (8-78); Potassium 3.6 mmol/L (3.5-5.1); Protein, Total 8.3 g/dL (6.0-8.3); Sodium 136 mmol/L (136-145)
--- NOTE | 2019-01-24 10:23 | CT ---
CT Abdomen Pelvis W Con: 01/24/2019 9:10 AM CLINICAL INFORMATION: Left lower quadrant abdominal pain that began 4 days ago COMPARISON: 11/27/2017 TECHNIQUE: Multiple contiguous axial images were obtained and a CT of the abdomen and pelvis with IV contrast. C oronal and sagittal reformats were performed. FINDINGS: Lower Chest: within normal limits. Abdomen: Liver: Air is seen in the biliary tree in the left lobe of the liver likely from prior sphincterotomy at the ampulla of Vater. Bile Ducts: Mild enlargement of the common bile duct is likely a reservoir effect from prior cholecys tectomy. Gallbladder: Removed Pancreas: within normal limits. Spleen: within normal limits. Adrenals: within normal limits. Kidneys: within normal limits. Pelvis: Reproductive Organs: Status post hysterectomy Ureters: within normal limits. Bladder: within normal limits. Peritoneum: No ascites or free air, no fluid collection. Bowel: Normal caliber. Mesentery and Retroperitoneum: No enlarged mesenteric or retroperitoneal lymph nodes. Vessels: Normal. Abdominal Wall: within normal limits. Bones: Within normal limits IMPRESSION: No evidence of acute intraabdominal or pelvic abnormality.
[2019-01-24] MEDS ORDERED: Acetaminophen 500 MG TAB ONE (10:39)
== END 2019-01-24 11:25 | disposition home or self-care (01) ==
LOC: ERS 08:44 → EEVIPCON 08:44 → ERS 11:25
DX: N17.9 Acute kidney failure, unspecified (principal); B02.9 Zoster without complications; F41.9 Anxiety disorder, unspecified; F32.9 Major depressive disorder, single episode, unspecified; F90.9 Attention-deficit hyperactivity disorder, unspecified type; F43.10 Post-traumatic stress disorder, unspecified
CPT/HCPCS: 74177; 80053; 81003; 81015; 83690; 85025; 96361; 96372; 96374; 96375; J0500; J1885; J2405

== ENCOUNTER 2019-03-08 09:18 | Emergency (ER) | payer OTHER ==
[2019-03-08 10:20] LABS: #Basophils 0.1 thou/uL (0.0-0.2); #Eosinphils 0.1 thou/uL (0.0-0.7); #Lymphocytes 2.7 thou/uL (1.20-3.40); #Monocytes 0.5 thou/uL (0.11-0.59); #Neutrophils 6.6 thou/uL (1.40-6.50); %Basophils 0.9 % (0.0-1.0); %Eosinophils 1.4 % (0.0-10.0); %Lymphocytes 27.3 % (21.0-51.0); %Monocytes 5.1 % (0.0-10.0); %Neutrophils 65.3 % (42.0-75.0); Hemoglobin 12.7 g/dL (12.0-16.0); Mean Corpuscular HGB CONC 34.2 g/dL (32.0-36.0); Mean Corpuscular Hemoglobin 31.2 pg (27.0-31.0); Mean Corpuscular Volume 91.1 fL (78.0-98.0); Platelet Count 210 thou/uL (130-400); RBC Distribution Width 11.4 % (11.5-14.5); Red Blood Cell (RBC) Count 4.07 mill/uL (4.20-5.40)
[2019-03-08 10:28] LABS: ALT (SGPT) 18 U/L (8-55); AST (SGOT) 15 U/L (5-34); Albumin 4.3 g/dL (3.5-5.0); Alkaline Phosphatase 88 U/L (40-110); Anion Gap 13 mmol/L (10-20); BUN (Urea Nitrogen) 16 mg/dL (7.0-18.7); Bilirubin, Total 0.3 mg/dL (0.2-1.2); Calc. Creatinine Clearance 0 mL/min (70-130); Calcium 9.9 mg/dL (7.8-10.44); Carbon Dioxide 28 mmol/L (22-29); Chloride 103 mmol/L (98-107); Estimated GFR-MDRD 46; Globulin 2.9 g/dL (2.4-3.5); Glucose 101 mg/dL (70-105); Potassium 3.7 mmol/L (3.5-5.1); Protein, Total 7.2 g/dL (6.0-8.3); Sodium 140 mmol/L (136-145)
[2019-03-08] MEDS ORDERED: Acetaminophen/Codeine 30-300mg Tablet ONE (10:47)
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
[2019-03-08] MEDS ORDERED: Midodrine HCl 5 MG TAB PO SCH (13:00)
== END 2019-03-08 16:24 | disposition home or self-care (01) ==
LOC: ERS 09:18
DX: S93.401A Sprain of unspecified ligament of right ankle, initial encounter (principal); R51 Headache; T50.905A Adverse effect of unspecified drugs, medicaments and biological substances, initial encounter; I11.0 Hypertensive heart disease with heart failure; I50.9 Heart failure, unspecified; I34.1 Nonrheumatic mitral (valve) prolapse; E03.9 Hypothyroidism, unspecified; Z86.711 Personal history of pulmonary embolism; Z86.718 Personal history of other venous thrombosis and embolism; Z79.899 Other long term (current) drug therapy; V89.2XXA Person injured in unspecified motor-vehicle accident, traffic, initial encounter
CPT/HCPCS: 71045; 80053; 85025; 93005; 96360

== ENCOUNTER 2020-04-22 17:35 | Emergency (ER) | payer OTHER, SELFPAY ==
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
== END 2020-04-22 18:55 | disposition home or self-care (01) ==
LOC: ERS 17:35
DX: M25.572 Pain in left ankle and joints of left foot (principal); I11.0 Hypertensive heart disease with heart failure; E03.9 Hypothyroidism, unspecified; E78.1 Pure hyperglyceridemia; M79.7 Fibromyalgia; I50.9 Heart failure, unspecified; G62.9 Polyneuropathy, unspecified; Z86.711 Personal history of pulmonary embolism; Z86.718 Personal history of other venous thrombosis and embolism; Z79.899 Other long term (current) drug therapy

== ENCOUNTER 2020-06-20 17:58 | Emergency (ER) | payer OTHER, SELFPAY ==
[2020-06-20] MEDS ORDERED: Ondansetron PF 4 MG/2 ML Vial ONE (18:55)
[2020-06-20 19:03] LABS: Bilirubin Negative (Negative); Blood, Urine Negative (Negative); Clarity Clear (Clear); Glucose, Urine (Dipstick) Normal (Negative); Ketone, Urine Negative (Negative); Leukocyte 25 Leu/uL (Negative); Nitrite Negative (Negative); Protein, Urine (Dipstick) Negative (Neg-Trace); RBC/HPF 0-3 HPF (0-3); Specific Gravity, Urine 1.015 (1.002-1.036); Squamous Epithelial 0-3 HPF (0-3); Urobilinogen Normal mg/dL (Less than 2); WBC/HPF 0-3 HPF (0-3); pH, Urine 5.5 (5.0-9.0)
[2020-06-20 19:04] LABS: Bacteria/HPF 1+ HPF (None Seen)
[2020-06-20 19:09] LABS: #Basophils 0.1 thou/uL (0.0-0.2); #Lymphocytes 1.8 thou/uL (1.20-3.40); #Monocytes 0.6 thou/uL (0.11-0.59); #Neutrophils 9.3 thou/uL (1.40-6.50); %Basophils 0.6 % (0.0-1.0); %Eosinophils 0.4 % (0.0-10.0); %Lymphocytes 15.5 % (21.0-51.0); %Monocytes 5.2 % (0.0-10.0); %Neutrophils 78.3 % (42.0-75.0); Hemoglobin 13.2 g/dL (12.0-16.0); Mean Corpuscular HGB CONC 34.5 g/dL (32.0-36.0); Mean Corpuscular Hemoglobin 31.7 pg (27.0-31.0); Mean Platelet Volume 8.7 fL (7.4-10.4); Platelet Count 267 thou/uL (130-400); Red Blood Cell (RBC) Count 4.16 mill/uL (4.20-5.40); White Blood Cell (WBC) Count 11.8 thou/uL (4.8-10.8)
[2020-06-20 19:31] LABS: ALT (SGPT) 18 U/L (8-55); AST (SGOT) 26 U/L (5-34); Albumin 4.3 g/dL (3.5-5.0); Alkaline Phosphatase 103 U/L (40-110); Anion Gap 14 mmol/L (10-20); BUN (Urea Nitrogen) 9 mg/dL (9.8-20.1); Bilirubin, Total 0.5 mg/dL (0.2-1.2); Calc. Creatinine Clearance 0 mL/min (70-130); Calcium 9.6 mg/dL (7.8-10.44); Carbon Dioxide 27 mmol/L (22-29); Chloride 102 mmol/L (98-107); Glucose 97 mg/dL (70-105); Lipase 19 U/L (8-78); Potassium 3.6 mmol/L (3.5-5.1); Protein, Total 7.3 g/dL (6.0-8.3); Sodium 139 mmol/L (136-145)
== END 2020-06-20 21:50 | disposition home or self-care (01) ==
LOC: ERS 17:58
DX: R10.13 Epigastric pain (principal); E03.9 Hypothyroidism, unspecified; E78.1 Pure hyperglyceridemia; I11.0 Hypertensive heart disease with heart failure; I50.9 Heart failure, unspecified; Z86.711 Personal history of pulmonary embolism; Z86.718 Personal history of other venous thrombosis and embolism; Z79.899 Other long term (current) drug therapy
CPT/HCPCS: 36415; 74177; 80053; 81003; 81015; 83690; 85025; 93005; 96374; J2405

== ENCOUNTER 2020-07-31 14:24 | Emergency (ER) | payer SELFPAY ==
[2020-07-31 14:48] LABS: Bilirubin Negative (Negative); Blood, Urine Negative (Negative); Glucose, Urine (Dipstick) Negative (Negative); Ketone, Urine Negative (Negative); Leukocyte Trace (Negative); Nitrite Negative (Negative); Protein, Urine (Dipstick) Negative (Neg-Trace); Urobilinogen 0.2 mg/dL (Less than 2); pH, Urine 5.5 (5.0-9.0)
[2020-07-31 14:51] LABS: Clarity Clear (Clear)
[2020-07-31 14:52] LABS: Bacteria/HPF None Seen HPF (None Seen); RBC/HPF 0-3 HPF (0-3); Squamous Epithelial 0-3 HPF (0-3); WBC/HPF 0-3 HPF (0-3)
[2020-07-31 14:56] LABS: Pregnancy Test - Urine (BHCG) Negative (Negative); Pregu Control Background? CLEAR/WHITE (CLR/WHITE); Pregu Control Bar Appear? YES (CONTROL BAR)
[2020-07-31 15:15] LABS: #Basophils 0.1 thou/uL (0.0-0.2); #Eosinphils 0.2 thou/uL (0.0-0.7); #Lymphocytes 2.1 thou/uL (1.20-3.40); #Monocytes 0.6 thou/uL (0.11-0.59); #Neutrophils 6.4 thou/uL (1.40-6.50); %Basophils 0.6 % (0.0-1.0); %Eosinophils 2.3 % (0.0-10.0); %Lymphocytes 22.6 % (21.0-51.0); %Monocytes 6.1 % (0.0-10.0); %Neutrophils 68.4 % (42.0-75.0); Hemoglobin 12.7 g/dL (12.0-16.0); Mean Corpuscular HGB CONC 34.1 g/dL (32.0-36.0); Mean Corpuscular Hemoglobin 31.5 pg (27.0-31.0); Mean Corpuscular Volume 92.3 fL (78.0-98.0); Mean Platelet Volume 8.5 fL (7.4-10.4); Platelet Count 230 thou/uL (130-400); RBC Distribution Width 11.7 % (11.5-14.5); Red Blood Cell (RBC) Count 4.02 mill/uL (4.20-5.40); White Blood Cell (WBC) Count 9.4 thou/uL (4.8-10.8)
[2020-07-31 15:36] LABS: ALT (SGPT) 27 U/L (8-55); AST (SGOT) 25 U/L (5-34); Albumin 4.1 g/dL (3.5-5.0); Alkaline Phosphatase 83 U/L (40-110); Anion Gap 11 mmol/L (10-20); BUN (Urea Nitrogen) 11 mg/dL (9.8-20.1); Bilirubin, Total 0.3 mg/dL (0.2-1.2); Calc. Creatinine Clearance 0 mL/min (70-130); Calcium 9.3 mg/dL (7.8-10.44); Carbon Dioxide 25 mmol/L (22-29); Chloride 109 mmol/L (98-107); Globulin 3.1 g/dL (2.4-3.5); Glucose 94 mg/dL (70-105); Lipase 39 U/L (8-78); Potassium 4.2 mmol/L (3.5-5.1); Protein, Total 7.2 g/dL (6.0-8.3); Sodium 141 mmol/L (136-145)
[2020-07-31] MEDS ORDERED: Ketorolac Tromethamine 30 MG/ML VIAL ONE (16:10)
== END 2020-07-31 16:28 | disposition home or self-care (01) ==
LOC: ERS 14:24
DX: N39.0 Urinary tract infection, site not specified (principal); I10 Essential (primary) hypertension; E78.00 Pure hypercholesterolemia, unspecified; E03.9 Hypothyroidism, unspecified; I50.9 Heart failure, unspecified; Z86.73 Personal history of transient ischemic attack (TIA), and cerebral infarction without residual deficits; Z86.711 Personal history of pulmonary embolism; Z79.899 Other long term (current) drug therapy
CPT/HCPCS: 36415; 74176; 80053; 81003; 81015; 81025; 83690; 85025; 87086; 96374; J1885

== ENCOUNTER 2020-08-26 13:55 | Emergency (ER) | payer SELFPAY ==
[2020-08-26] MEDS ORDERED: Lidocaine 1% (PF) 30 ML VIAL ONE (15:29)
[2020-08-26] MEDS ORDERED: Bupivacaine 0.5% 10 ML VIAL ONE (15:29)
[2020-08-26] MEDS ORDERED: Bacitracin 1 PK ONE (16:04)
== END 2020-08-26 16:06 | disposition home or self-care (01) ==
LOC: ERS 13:55
DX: S61.313A Laceration without foreign body of left middle finger with damage to nail, initial encounter (principal); E03.9 Hypothyroidism, unspecified; I34.1 Nonrheumatic mitral (valve) prolapse; I11.0 Hypertensive heart disease with heart failure; I50.9 Heart failure, unspecified; E78.1 Pure hyperglyceridemia; Z86.718 Personal history of other venous thrombosis and embolism; Z85.05 Personal history of malignant neoplasm of liver; Z86.711 Personal history of pulmonary embolism; Z79.899 Other long term (current) drug therapy; W26.0XXA Contact with knife, initial encounter
CPT/HCPCS: 64450; J2001; J3490

== ENCOUNTER 2020-10-09 12:51 | Inpatient (IN) | payer OTHER, SELFPAY ==
[2020-10-09 13:42] LABS: Mean Corpuscular HGB CONC 35.8 g/dL (32.0-36.0); Mean Corpuscular Hemoglobin 33.3 pg (27.0-31.0); RBC Distribution Width 12.5 % (11.5-14.5); White Blood Cell (WBC) Count 4.2 thou/uL (4.8-10.8)
[2020-10-09 14:00] LABS: ALT (SGPT) 22 U/L (8-55); AST (SGOT) 29 U/L (5-34); Albumin 4.2 g/dL (3.5-5.0); Alkaline Phosphatase 81 U/L (40-110); Anion Gap 15 mmol/L (10-20); BUN (Urea Nitrogen) 23 mg/dL (9.8-20.1); Bilirubin, Total 0.3 mg/dL (0.2-1.2); Calc. Creatinine Clearance 0 mL/min (70-130); Calcium 9.2 mg/dL (7.8-10.44); Carbon Dioxide 21 mmol/L (22-29); Chloride 104 mmol/L (98-107); Globulin 3.1 g/dL (2.4-3.5); Glucose 119 mg/dL (70-105); Potassium 3.8 mmol/L (3.5-5.1); Protein, Total 7.3 g/dL (6.0-8.3); Sodium 136 mmol/L (136-145)
[2020-10-09 14:05] LABS: #Lymphocytes 0.6 thou/uL (1.20-3.40); #Monocytes 0.3 thou/uL (0.11-0.59); #Neutrophils 3.3 thou/uL (1.40-6.50); %Basophils 0.3 % (0.0-1.0); %Eosinophils 0.3 % (0.0-10.0); %Lymphocytes 14.8 % (21.0-51.0); %Monocytes 6.3 % (0.0-10.0); %Neutrophils 78.3 % (42.0-75.0); Large Platelets SLIGHT; MDiff Complete? YES; Mean Platelet Volume 10.3 fL (7.4-10.4); Platelet Count 110 thou/uL (130-400); Platelet Morphology Comment Appears Decreased; RBC Morphology Normal
[2020-10-09 15:53] LABS: SARS-CoV-2 NAA Rapid Test DETECTED (NotDetected)
[2020-10-09] MEDS ORDERED: Ondansetron ODT 4 MG TAB PO PRN (17:38)
[2020-10-09] MEDS ORDERED: Ondansetron PF 4 MG/2 ML Vial IVP PRN (17:38)
[2020-10-09] MEDS ORDERED: Acetaminophen 650 MG Suppository PR PRN (17:38)
[2020-10-09 20:36] LABS: Lactic Acid 0.9 mmol/L (0.5-2.2)
[2020-10-09] MEDS: Heparin 5,000 UNITS/ML VIAL SC SCH (21:53)
[2020-10-09] MEDS: Famotidine 20 MG TAB PO SCH (21:53)
[2020-10-09] MEDS: Sodium Chloride 0.9% 1,000 ML IV SCH (21:54)
[2020-10-10] MEDS: Sodium Chloride 0.9% 1,000 ML IV SCH ×3 (02:13→17:19)
[2020-10-10 06:25] LABS: Hemoglobin 11.5 g/dL (12.0-16.0); Mean Corpuscular HGB CONC 32.8 g/dL (32.0-36.0); Mean Corpuscular Hemoglobin 31.1 pg (27.0-31.0); Mean Corpuscular Volume 94.9 fL (78.0-98.0); Mean Platelet Volume 10.1 fL (7.4-10.4); Platelet Count 89 thou/uL (130-400); RBC Distribution Width 12.6 % (11.5-14.5); Red Blood Cell (RBC) Count 3.69 mill/uL (4.20-5.40); White Blood Cell (WBC) Count 2.7 thou/uL (4.8-10.8)
[2020-10-10 06:33] LABS: Anion Gap 10 mmol/L (10-20); BUN (Urea Nitrogen) 17 mg/dL (9.8-20.1); Calc. Creatinine Clearance 103 mL/min (70-130); Calcium 8.1 mg/dL (7.8-10.44); Carbon Dioxide 21 mmol/L (22-29); Chloride 110 mmol/L (98-107); Glucose 82 mg/dL (70-105); Sodium 137 mmol/L (136-145)
[2020-10-10 06:47] LABS: Band 4 % (5-11); Lymphocytes 58 % (21-51); MDiff Complete? YES; Monocytes 11 % (0-10); Neutrophil 26 % (42-75); Platelet Morphology Comment Appears Decreased; RBC Morphology Normal; Reactive Lymphocytes 1 % (0-10)
[2020-10-10] MEDS: Famotidine 20 MG TAB PO SCH ×2 (08:13→21:03)
[2020-10-10] MEDS: Heparin 5,000 UNITS/ML VIAL SC SCH ×2 (08:13→21:02)
[2020-10-10] MEDS ORDERED: Lactated Ringer's 1,000 ML IV SCH (08:45)
[2020-10-10 09:13] LABS: Magnesium 1.9 mg/dL (1.6-2.6)
[2020-10-10] MEDS ORDERED: Magnesium 2 GM/50 ML 2 GM in Premix Bag 1 BAG IVPB SCH (10:00)
[2020-10-10] MEDS: Acetaminophen 325 MG TAB PO PRN (17:19)
[2020-10-11] MEDS: Acetaminophen 325 MG TAB PO PRN ×3 (00:29→19:54)
[2020-10-11] MEDS: Sodium Chloride 0.9% 1,000 ML IV SCH ×3 (02:10→17:29)
[2020-10-11 06:53] LABS: #Lymphocytes 1.1 thou/uL (1.20-3.40); #Monocytes 0.1 thou/uL (0.11-0.59); #Neutrophils 1.5 thou/uL (1.40-6.50); %Basophils 1.1 % (0.0-1.0); %Eosinophils 0.3 % (0.0-10.0); %Lymphocytes 40.9 % (21.0-51.0); %Monocytes 3.8 % (0.0-10.0); Hemoglobin 11.2 g/dL (12.0-16.0); Mean Corpuscular HGB CONC 33.8 g/dL (32.0-36.0); Mean Corpuscular Hemoglobin 32.1 pg (27.0-31.0); Mean Corpuscular Volume 94.9 fL (78.0-98.0); Mean Platelet Volume 9.9 fL (7.4-10.4); Platelet Count 90 thou/uL (130-400); Platelet Morphology Comment Appears Decreased; RBC Distribution Width 12.7 % (11.5-14.5); RBC Morphology Normal; Red Blood Cell (RBC) Count 3.48 mill/uL (4.20-5.40); White Blood Cell (WBC) Count 2.8 thou/uL (4.8-10.8)
[2020-10-11 07:05] LABS: Anion Gap 9 mmol/L (10-20); BUN (Urea Nitrogen) 6 mg/dL (9.8-20.1); Calc. Creatinine Clearance 135 mL/min (70-130); Carbon Dioxide 21 mmol/L (22-29); Chloride 112 mmol/L (98-107); Potassium 3.4 mmol/L (3.5-5.1); Sodium 139 mmol/L (136-145)
[2020-10-11 07:06] LABS: Calcium 7.8 mg/dL (7.8-10.44); Glucose 111 mg/dL (70-105)
[2020-10-11] MEDS: Heparin 5,000 UNITS/ML VIAL SC SCH ×3 (08:01→19:24)
[2020-10-11] MEDS: Famotidine 20 MG TAB PO SCH ×2 (08:01→19:24)
[2020-10-11] MEDS ORDERED: Liothyronine Sodium 5 MCG TAB PO SCH (09:00)
[2020-10-11] MEDS ORDERED: Magnesium 2 GM/50 ML 2 GM in Premix Bag 1 BAG IVPB SCH (16:45)
[2020-10-11] MEDS: Zinc Sulfate 220 MG CAP PO SCH (19:24)
[2020-10-12] MEDS: Acetaminophen 325 MG TAB PO PRN ×4 (00:38→18:06)
[2020-10-12] MEDS: Levothyroxine Sodium 75 MCG TAB PO SCH (04:59)
[2020-10-12] MEDS: Sodium Chloride 0.9% 1,000 ML IV SCH (05:25)
[2020-10-12 05:52] LABS: #Lymphocytes 1.2 thou/uL (1.20-3.40); #Monocytes 0.1 thou/uL (0.11-0.59); #Neutrophils 2.6 thou/uL (1.40-6.50); %Basophils 0.5 % (0.0-1.0); %Eosinophils 0.2 % (0.0-10.0); %Lymphocytes 30.2 % (21.0-51.0); %Monocytes 3.4 % (0.0-10.0); %Neutrophils 65.8 % (42.0-75.0); Hemoglobin 11.2 g/dL (12.0-16.0); Mean Corpuscular Hemoglobin 31.1 pg (27.0-31.0); Mean Corpuscular Volume 94.3 fL (78.0-98.0); Mean Platelet Volume 9.8 fL (7.4-10.4); Platelet Count 94 thou/uL (130-400); RBC Distribution Width 12.8 % (11.5-14.5)
[2020-10-12] MEDS ORDERED: Levothyroxine Sodium 112 MCG TAB PO SCH (06:00)
[2020-10-12 06:13] LABS: Anion Gap 10 mmol/L (10-20); BUN (Urea Nitrogen) 4 mg/dL (9.8-20.1); Calc. Creatinine Clearance 135 mL/min (70-130); Carbon Dioxide 25 mmol/L (22-29); Chloride 107 mmol/L (98-107); Glucose 88 mg/dL (70-105); Potassium 3.5 mmol/L (3.5-5.1); Sodium 138 mmol/L (136-145)
[2020-10-12 06:14] LABS: Magnesium 1.6 mg/dL (1.6-2.6); Phosphorus 2.1 mg/dL (2.3-4.7)
[2020-10-12] MEDS: Heparin 5,000 UNITS/ML VIAL SC SCH ×2 (08:37→20:28)
[2020-10-12] MEDS: Famotidine 20 MG TAB PO SCH ×2 (08:37→20:28)
[2020-10-12] MEDS: Ascorbic Acid 500 mg Chewable Tablet PO SCH (08:37)
[2020-10-12] MEDS: Multivit, Therapeutic 1 TAB PO SCH (08:37)
[2020-10-12] MEDS ORDERED: Potassium Phosphate 30 MMOL in Sodium Chloride 0.9% 500 ML IVPB SCH ×2 (09:15→12:00)
[2020-10-12 10:22] LABS: Free T4 (Free Thyroxine) 0.72 ng/dL (0.70-1.48)
[2020-10-12] MEDS ORDERED: Iopamidol-370 76% 500 ML 1 ML ONE (10:47)
[2020-10-12] MEDS ORDERED: Dexamethasone 10 MG in Sodium Chloride 0.9% 50 ML IVPB SCH (16:07)
[2020-10-12] MEDS ORDERED: Thiamine 100 MG TAB PO SCH (16:15)
[2020-10-12] MEDS ORDERED: REMDESIVIR 200 MG in Sodium Chloride 0.9% 250 ML 210 ML IV SCH (17:15)
[2020-10-12] MEDS: Zinc Sulfate 220 MG CAP PO SCH (20:28)
[2020-10-13] MEDS: Levothyroxine Sodium 75 MCG TAB PO SCH (05:10)
[2020-10-13] MEDS: Acetaminophen 325 MG TAB PO PRN ×2 (05:10→11:00)
[2020-10-13 06:11] LABS: #Lymphocytes 0.9 thou/uL (1.20-3.40); #Monocytes 0.1 thou/uL (0.11-0.59); #Neutrophils 3.5 thou/uL (1.40-6.50); %Basophils 0.1 % (0.0-1.0); %Eosinophils 0.2 % (0.0-10.0); %Lymphocytes 20.4 % (21.0-51.0); %Monocytes 2.8 % (0.0-10.0); %Neutrophils 76.5 % (42.0-75.0); Hemoglobin 10.9 g/dL (12.0-16.0); Mean Corpuscular HGB CONC 33.6 g/dL (32.0-36.0); Mean Corpuscular Hemoglobin 31.6 pg (27.0-31.0); Mean Platelet Volume 9.6 fL (7.4-10.4); Platelet Count 119 thou/uL (130-400); RBC Distribution Width 12.7 % (11.5-14.5); Red Blood Cell (RBC) Count 3.45 mill/uL (4.20-5.40); White Blood Cell (WBC) Count 4.6 thou/uL (4.8-10.8)
[2020-10-13 06:28] LABS: Anion Gap 10 mmol/L (10-20); BUN (Urea Nitrogen) 5 mg/dL (9.8-20.1); Calc. Creatinine Clearance 131 mL/min (70-130); Calcium 8.5 mg/dL (7.8-10.44); Carbon Dioxide 24 mmol/L (22-29); Chloride 106 mmol/L (98-107); Glucose 109 mg/dL (70-105); Potassium 3.2 mmol/L (3.5-5.1); Sodium 137 mmol/L (136-145)
[2020-10-13] MEDS: Famotidine 20 MG TAB PO SCH ×2 (07:43→21:13)
[2020-10-13] MEDS: Ascorbic Acid 500 mg Chewable Tablet PO SCH (07:43)
[2020-10-13] MEDS: Multivit, Therapeutic 1 TAB PO SCH (07:43)
[2020-10-13] MEDS: Cholecalciferol 1,000 UNITS (25 MCG) TAB PO SCH (07:43)
[2020-10-13] MEDS: Dexamethasone 10 MG/ML VIAL SLOW IVP SCH (07:45)
[2020-10-13] MEDS: Thiamine 100 MG TAB PO SCH (07:45)
[2020-10-13] MEDS: Heparin 5,000 UNITS/ML VIAL SC SCH ×2 (07:45→21:13)
[2020-10-13] MEDS ORDERED: Potassium Chloride 20 MEQ TAB PO SCH (08:15)
[2020-10-13] MEDS: REMDESIVIR 100 MG in Sodium Chloride 0.9% 250 ML 230 ML IV SCH (18:16)
[2020-10-13] MEDS: Loperamide HCl 2 MG CAP PO PRN (21:13)
[2020-10-13] MEDS: Zinc Sulfate 220 MG CAP PO SCH (21:13)
[2020-10-14] MEDS: Levothyroxine Sodium 75 MCG TAB PO SCH (05:50)
[2020-10-14 06:29] LABS: #Lymphocytes 0.9 thou/uL (1.20-3.40); #Monocytes 0.3 thou/uL (0.11-0.59); %Basophils 0.1 % (0.0-1.0); %Eosinophils 0.1 % (0.0-10.0); %Lymphocytes 22.2 % (21.0-51.0); %Monocytes 5.9 % (0.0-10.0); %Neutrophils 71.6 % (42.0-75.0); Hemoglobin 11.6 g/dL (12.0-16.0); Mean Corpuscular HGB CONC 32.1 g/dL (32.0-36.0); Mean Corpuscular Hemoglobin 30.5 pg (27.0-31.0); Mean Platelet Volume 10.1 fL (7.4-10.4); Platelet Count 137 thou/uL (130-400); RBC Distribution Width 12.7 % (11.5-14.5); Red Blood Cell (RBC) Count 3.82 mill/uL (4.20-5.40); White Blood Cell (WBC) Count 4.3 thou/uL (4.8-10.8)
[2020-10-14 06:50] LABS: Anion Gap 12 mmol/L (10-20); BUN (Urea Nitrogen) 15 mg/dL (9.8-20.1); Calc. Creatinine Clearance 139 mL/min (70-130); Calcium 9.2 mg/dL (7.8-10.44); Carbon Dioxide 26 mmol/L (22-29); Chloride 107 mmol/L (98-107); Glucose 148 mg/dL (70-105); Potassium 4.1 mmol/L (3.5-5.1); Sodium 141 mmol/L (136-145)
[2020-10-14] MEDS: Cholecalciferol 1,000 UNITS (25 MCG) TAB PO SCH (08:44)
[2020-10-14] MEDS: Thiamine 100 MG TAB PO SCH (08:44)
[2020-10-14] MEDS: Ascorbic Acid 500 mg Chewable Tablet PO SCH (08:44)
[2020-10-14] MEDS: Famotidine 20 MG TAB PO SCH ×2 (08:44→20:17)
[2020-10-14] MEDS: Multivit, Therapeutic 1 TAB PO SCH (08:44)
[2020-10-14] MEDS: Dexamethasone 10 MG/ML VIAL SLOW IVP SCH (08:45)
[2020-10-14] MEDS: Heparin 5,000 UNITS/ML VIAL SC SCH ×2 (08:46→20:17)
[2020-10-14] MEDS ORDERED: BARICITINIB 2 MG TAB PO SCH (09:00)
[2020-10-14] MEDS: REMDESIVIR 100 MG in Sodium Chloride 0.9% 250 ML 230 ML IV SCH (16:55)
[2020-10-14] MEDS: Loperamide HCl 2 MG CAP PO PRN (20:16)
[2020-10-14] MEDS: Zinc Sulfate 220 MG CAP PO SCH (20:17)
[2020-10-15] MEDS ORDERED: Melatonin 3 MG TAB PO PRN (00:12)
[2020-10-15 05:53] VITALS: BMI 35.2
[2020-10-15 07:26] LABS: Phosphorus 3.1 mg/dL (2.3-4.7)
[2020-10-15] MEDS: Levothyroxine Sodium 75 MCG TAB PO SCH (10:29)
[2020-10-15] MEDS: Ascorbic Acid 500 mg Chewable Tablet PO SCH (10:30)
[2020-10-15] MEDS: Cholecalciferol 1,000 UNITS (25 MCG) TAB PO SCH (10:33)
[2020-10-15] MEDS: Dexamethasone 10 MG/ML VIAL SLOW IVP SCH (10:34)
[2020-10-15] MEDS: Thiamine 100 MG TAB PO SCH (10:35)
[2020-10-15] MEDS: Famotidine 20 MG TAB PO SCH ×2 (10:35→19:58)
[2020-10-15] MEDS: Multivit, Therapeutic 1 TAB PO SCH (10:35)
[2020-10-15] MEDS: Heparin 5,000 UNITS/ML VIAL SC SCH ×2 (10:35→19:59)
[2020-10-15] MEDS: REMDESIVIR 100 MG in Sodium Chloride 0.9% 250 ML 230 ML IV SCH (16:50)
[2020-10-15] MEDS: Guaifenesin DM 100-10/5 ML UDCUP PO PRN (19:58)
[2020-10-15] MEDS: Zinc Sulfate 220 MG CAP PO SCH (19:59)
[2020-10-16] MEDS: Dexamethasone 10 MG/ML VIAL SLOW IVP SCH ×2 (08:09→21:18)
[2020-10-16] MEDS: Thiamine 100 MG TAB PO SCH (08:10)
[2020-10-16] MEDS: Heparin 5,000 UNITS/ML VIAL SC SCH ×2 (08:10→21:19)
[2020-10-16] MEDS: Famotidine 20 MG TAB PO SCH ×2 (08:10→21:18)
[2020-10-16] MEDS: Levothyroxine Sodium 75 MCG TAB PO SCH (08:10)
[2020-10-16] MEDS: Ascorbic Acid 500 mg Chewable Tablet PO SCH (08:10)
[2020-10-16] MEDS: Multivit, Therapeutic 1 TAB PO SCH (08:10)
[2020-10-16] MEDS: Cholecalciferol 1,000 UNITS (25 MCG) TAB PO SCH (08:10)
[2020-10-16] MEDS: Guaifenesin DM 100-10/5 ML UDCUP PO PRN (09:49)
[2020-10-16] MEDS ORDERED: Estradiol 1 MG TAB PO SCH ×2 (10:17→10:30)
[2020-10-16] MEDS: REMDESIVIR 100 MG in Sodium Chloride 0.9% 250 ML 230 ML IV SCH (16:37)
[2020-10-16] MEDS: Mometasone 200 MCG/Formoterol 5 MCG 120 PUFF INHALER INH SCH (17:23)
[2020-10-16] MEDS: Doxycycline 100 MG CAP PO SCH (21:18)
[2020-10-16] MEDS: Zinc Sulfate 220 MG CAP PO SCH (21:19)
[2020-10-17] MEDS: Levothyroxine Sodium 75 MCG TAB PO SCH (05:26)
[2020-10-17] MEDS: Mometasone 200 MCG/Formoterol 5 MCG 120 PUFF INHALER INH SCH ×2 (05:26→18:05)
[2020-10-17] MEDS: Heparin 5,000 UNITS/ML VIAL SC SCH ×2 (07:41→20:48)
[2020-10-17] MEDS: Doxycycline 100 MG CAP PO SCH ×2 (07:42→20:47)
[2020-10-17] MEDS: Ascorbic Acid 500 mg Chewable Tablet PO SCH (07:42)
[2020-10-17] MEDS: Dexamethasone 10 MG/ML VIAL SLOW IVP SCH ×2 (07:42→20:48)
[2020-10-17] MEDS: Multivit, Therapeutic 1 TAB PO SCH (07:42)
[2020-10-17] MEDS: Cholecalciferol 1,000 UNITS (25 MCG) TAB PO SCH (07:42)
[2020-10-17] MEDS: Famotidine 20 MG TAB PO SCH ×2 (07:42→20:48)
[2020-10-17] MEDS: Thiamine 100 MG TAB PO SCH (07:42)
[2020-10-17] MEDS: Estradiol 1 MG TAB PO SCH (07:43)
[2020-10-17] MEDS: Zinc Sulfate 220 MG CAP PO SCH (20:48)
[2020-10-18] MEDS: Levothyroxine Sodium 75 MCG TAB PO SCH ×2 (05:50→06:10)
[2020-10-18] MEDS: Mometasone 200 MCG/Formoterol 5 MCG 120 PUFF INHALER INH SCH ×2 (06:10→18:07)
[2020-10-18] MEDS: Doxycycline 100 MG CAP PO SCH ×2 (08:48→21:32)
[2020-10-18] MEDS: Ascorbic Acid 500 mg Chewable Tablet PO SCH (08:48)
[2020-10-18] MEDS: Famotidine 20 MG TAB PO SCH ×2 (08:48→21:32)
[2020-10-18] MEDS: Thiamine 100 MG TAB PO SCH (08:48)
[2020-10-18] MEDS: Cholecalciferol 1,000 UNITS (25 MCG) TAB PO SCH (08:48)
[2020-10-18] MEDS: Multivit, Therapeutic 1 TAB PO SCH (08:48)
[2020-10-18] MEDS: Heparin 5,000 UNITS/ML VIAL SC SCH ×2 (08:49→21:33)
[2020-10-18] MEDS: Estradiol 1 MG TAB PO SCH (08:52)
[2020-10-18] MEDS: Dexamethasone 10 MG/ML VIAL SLOW IVP SCH (08:53)
[2020-10-18] MEDS ORDERED: clonazePAM 1 MG TAB PO SCH (10:15)
[2020-10-18] MEDS ORDERED: Pregabalin 75 MG CAP PO SCH ×2 (11:15→21:00)
[2020-10-18] MEDS: tiZANidine HCl 4 MG TAB PO SCH ×2 (15:07→21:33)
[2020-10-18] MEDS: clonazePAM 1 MG TAB PO SCH ×2 (15:07→21:31)
[2020-10-18] MEDS: Dexamethasone 4 mg/ml Vial SLOW IVP SCH (21:32)
[2020-10-18] MEDS: Zinc Sulfate 220 MG CAP PO SCH (21:33)
[2020-10-18] MEDS: Pregabalin 75 MG CAP PO SCH (22:09)
[2020-10-19] MEDS: Mometasone 200 MCG/Formoterol 5 MCG 120 PUFF INHALER INH SCH ×2 (05:22→17:56)
[2020-10-19] MEDS: Levothyroxine Sodium 75 MCG TAB PO SCH (05:25)
[2020-10-19] MEDS: Estradiol 1 MG TAB PO SCH (08:07)
[2020-10-19] MEDS: Thiamine 100 MG TAB PO SCH (08:09)
[2020-10-19] MEDS: Pregabalin 75 MG CAP PO SCH ×2 (08:09→21:33)
[2020-10-19] MEDS: Multivit, Therapeutic 1 TAB PO SCH (08:10)
[2020-10-19] MEDS: Ascorbic Acid 500 mg Chewable Tablet PO SCH (08:10)
[2020-10-19] MEDS: Cholecalciferol 1,000 UNITS (25 MCG) TAB PO SCH (08:10)
[2020-10-19] MEDS: clonazePAM 1 MG TAB PO SCH ×3 (08:10→21:33)
[2020-10-19] MEDS: Famotidine 20 MG TAB PO SCH ×2 (08:11→21:32)
[2020-10-19] MEDS: Dexamethasone 4 mg/ml Vial SLOW IVP SCH (08:11)
[2020-10-19] MEDS: Doxycycline 100 MG CAP PO SCH ×2 (08:11→21:32)
[2020-10-19] MEDS: tiZANidine HCl 4 MG TAB PO SCH ×3 (08:11→21:33)
[2020-10-19] MEDS: Heparin 5,000 UNITS/ML VIAL SC SCH ×2 (08:13→21:34)
[2020-10-19] MEDS: Zinc Sulfate 220 MG CAP PO SCH (21:33)
[2020-10-20] MEDS: tiZANidine HCl 4 MG TAB PO SCH ×2 (06:15→14:35)
[2020-10-20] MEDS: Mometasone 200 MCG/Formoterol 5 MCG 120 PUFF INHALER INH SCH (06:23)
[2020-10-20] MEDS ORDERED: Levothyroxine Sodium 75 MCG TAB PO SCH (07:00)
[2020-10-20 07:20] LABS: Hemoglobin 12.2 g/dL (12.0-16.0); Mean Corpuscular HGB CONC 34.3 g/dL (32.0-36.0); Mean Corpuscular Hemoglobin 31.6 pg (27.0-31.0); Mean Corpuscular Volume 92.1 fL (78.0-98.0); Mean Platelet Volume 9.9 fL (7.4-10.4); Platelet Count 316 thou/uL (130-400); RBC Distribution Width 12.5 % (11.5-14.5); Red Blood Cell (RBC) Count 3.87 mill/uL (4.20-5.40); White Blood Cell (WBC) Count 12.7 thou/uL (4.8-10.8)
[2020-10-20] MEDS ORDERED: Dexamethasone 4 MG TAB PO SCH (08:00)
[2020-10-20] MEDS: Doxycycline 100 MG CAP PO SCH (08:06)
[2020-10-20] MEDS: Multivit, Therapeutic 1 TAB PO SCH (08:06)
[2020-10-20] MEDS: Ascorbic Acid 500 mg Chewable Tablet PO SCH (08:06)
[2020-10-20] MEDS: Cholecalciferol 1,000 UNITS (25 MCG) TAB PO SCH (08:07)
[2020-10-20] MEDS: Pregabalin 75 MG CAP PO SCH (08:07)
[2020-10-20] MEDS: Estradiol 1 MG TAB PO SCH (08:08)
[2020-10-20] MEDS: clonazePAM 1 MG TAB PO SCH ×2 (08:08→14:35)
[2020-10-20] MEDS: Thiamine 100 MG TAB PO SCH (08:08)
[2020-10-20] MEDS: Famotidine 20 MG TAB PO SCH (08:08)
[2020-10-20] MEDS: Heparin 5,000 UNITS/ML VIAL SC SCH (08:09)
[2020-10-20 17:07] VITALS: BP 129/81; TEMP 98.6
[2020-10-21] MEDS ORDERED: Levothyroxine Sodium 75 MCG TAB PO SCH (06:00)
== END 2020-10-20 19:15 | disposition home or self-care (01) | DRG 871 ==
LOC: ERS 12:51 → ERHOLD 17:24 → T4-A 20:47
PROVIDERS: ADMIT Internal Medicine; ATTEND Internal Medicine
PROC: 8E0ZXY6 Isolation (ICD-10-PCS; 2020-10-09)
PROC: XW033E5 Introduction of Remdesivir Anti-infective into Peripheral Vein, Percutaneous Approach, New Technology Group 5 (ICD-10-PCS; principal; 2020-10-12)
PROC: 3E0333Z Introduction of Anti-inflammatory into Peripheral Vein, Percutaneous Approach (ICD-10-PCS; 2020-10-13)
DX: A41.89 Other specified sepsis (principal); U07.1 COVID-19; J12.82 Pneumonia due to coronavirus disease 2019; J96.01 Acute respiratory failure with hypoxia; N17.9 Acute kidney failure, unspecified; A09 Infectious gastroenteritis and colitis, unspecified; I50.32 Chronic diastolic (congestive) heart failure; E87.2 Acidosis; I13.0 Hypertensive heart and chronic kidney disease with heart failure and stage 1 through stage 4 chronic kidney disease, or unspecified chronic kidney disease; D61.818 Other pancytopenia; I42.9 Cardiomyopathy, unspecified; R65.20 Severe sepsis without septic shock; E78.5 Hyperlipidemia, unspecified; R00.1 Bradycardia, unspecified; F90.9 Attention-deficit hyperactivity disorder, unspecified type; F41.9 Anxiety disorder, unspecified; F43.10 Post-traumatic stress disorder, unspecified; F42.9 Obsessive-compulsive disorder, unspecified; F11.11 Opioid abuse, in remission; M79.7 Fibromyalgia; K21.9 Gastro-esophageal reflux disease without esophagitis; N18.2 Chronic kidney disease, stage 2 (mild); E03.9 Hypothyroidism, unspecified; E66.01 Morbid (severe) obesity due to excess calories; G62.9 Polyneuropathy, unspecified; R07.9 Chest pain, unspecified; E83.42 Hypomagnesemia; E83.39 Other disorders of phosphorus metabolism; E87.6 Hypokalemia; Z88.6 Allergy status to analgesic agent; Z91.040 Latex allergy status; Z88.5 Allergy status to narcotic agent; Z88.2 Allergy status to sulfonamides; Z91.09 Other allergy status, other than to drugs and biological substances; Z91.5 Personal history of self-harm; Z87.440 Personal history of urinary (tract) infections; Z79.899 Other long term (current) drug therapy; Z79.890 Hormone replacement therapy; Z98.890 Other specified postprocedural states; Z82.49 Family history of ischemic heart disease and other diseases of the circulatory system; Z80.0 Family history of malignant neoplasm of digestive organs; Z68.35 Body mass index [BMI] 35.0-35.9, adult; Z86.718 Personal history of other venous thrombosis and embolism; Z90.49 Acquired absence of other specified parts of digestive tract
CPT/HCPCS: 0240U; 36415; 71045; 71275; 74177; 80048; 80053; 82533; 83605; 83735; 83880; 84100; 84439; 84443; 84481; 84484; 85025; 85027; 85379; 86140; 87040; 87045; 87046; 87324; 87427; 87449; 93005; 93010; 93306; J1100; J1644; J2405; J3475; J7030; J7050; J8540; Q0162; Q9967

== ENCOUNTER 2020-10-27 04:54 | Emergency (ER) | payer SELFPAY ==
[2020-10-27 05:31] LABS: #Eosinphils 0.1 thou/uL (0.0-0.7); #Lymphocytes 2.1 thou/uL (1.20-3.40); #Monocytes 1.6 thou/uL (0.11-0.59); #Neutrophils 12.4 thou/uL (1.40-6.50); %Basophils 0.2 % (0.0-1.0); %Eosinophils 0.6 % (0.0-10.0); %Lymphocytes 12.8 % (21.0-51.0); %Neutrophils 76.3 % (42.0-75.0); Hemoglobin 12.4 g/dL (12.0-16.0); Mean Corpuscular HGB CONC 32.5 g/dL (32.0-36.0); Mean Corpuscular Hemoglobin 30.9 pg (27.0-31.0); Mean Corpuscular Volume 95.2 fL (78.0-98.0); Mean Platelet Volume 9.6 fL (7.4-10.4); Platelet Count 197 thou/uL (130-400); RBC Distribution Width 13.9 % (11.5-14.5); White Blood Cell (WBC) Count 16.2 thou/uL (4.8-10.8)
[2020-10-27] MEDS ORDERED: Ketorolac Tromethamine 30 MG/ML VIAL ONE (05:51)
[2020-10-27] MEDS ORDERED: Morphine 4 MG/ML VIAL ONE (05:51)
[2020-10-27 05:55] LABS: ALT (SGPT) 20 U/L (8-55); AST (SGOT) 14 U/L (5-34); Albumin 3.5 g/dL (3.5-5.0); Alkaline Phosphatase 67 U/L (40-110); Anion Gap 14 mmol/L (10-20); BUN (Urea Nitrogen) 22 mg/dL (9.8-20.1); Bilirubin, Total 0.5 mg/dL (0.2-1.2); Calc. Creatinine Clearance 0 mL/min (70-130); Calcium 9.1 mg/dL (7.8-10.44); Carbon Dioxide 24 mmol/L (22-29); Chloride 107 mmol/L (98-107); Globulin 2.8 g/dL (2.4-3.5); Glucose 69 mg/dL (70-105); Potassium 3.6 mmol/L (3.5-5.1); Protein, Total 6.3 g/dL (6.0-8.3); Sodium 141 mmol/L (136-145)
[2020-10-27] MEDS ORDERED: Fluconazole In NaCl,Iso-Osm 400 MG in Premix Bag 1 BAG IVPB SCH (06:15)
[2020-10-27] MEDS ORDERED: Iopamidol-370 76% 500 ML 1 ML ONE (09:53)
== END 2020-10-27 10:01 | disposition home or self-care (01) ==
LOC: ERS 04:54
DX: B37.81 Candidal esophagitis (principal); E78.5 Hyperlipidemia, unspecified; E78.00 Pure hypercholesterolemia, unspecified; I11.0 Hypertensive heart disease with heart failure; I50.9 Heart failure, unspecified; Z86.718 Personal history of other venous thrombosis and embolism; Z86.711 Personal history of pulmonary embolism; Z79.899 Other long term (current) drug therapy
CPT/HCPCS: 70491; 71045; 80053; 83880; 84484; 85025; 93005; 96365; 96375; J1450; J1885; J2270; Q9967

== ENCOUNTER 2022-06-09 10:29 | Emergency (ER) | payer SELFPAY ==
[2022-06-09] MEDS ORDERED: cefTRIAXone (ROCEPHIN) 1 GM VIAL ONE (12:56)
[2022-06-09] MEDS ORDERED: Ondansetron PF 4 MG/2 ML Vial ONE (13:05)
[2022-06-09 13:20] LABS: Hemoglobin 12.7 g/dL (12.0-16.0); Mean Corpuscular HGB CONC 33.1 g/dL (32.0-36.0); Mean Corpuscular Hemoglobin 31.1 pg (27.0-31.0); Mean Platelet Volume 10.3 fL (7.4-10.4); Platelet Count 171 10x3/uL (130-400); RBC Distribution Width 11.1 % (11.5-14.5); Red Blood Cell (RBC) Count 4.09 mill/uL (4.20-5.40)
[2022-06-09 13:39] LABS: Band 12 % (5-11); Eosinophils 1 % (0-10); Lymphocytes 13 % (21-51); MDiff Complete? YES; Monocytes 5 % (0-10); Neutrophil 69 % (42-75); Platelet Morphology Comment Appears Adequate; RBC Morphology Normal
[2022-06-09 13:43] LABS: ALT (SGPT) 16 U/L (8-55); AST (SGOT) 14 U/L (5-34); Albumin 4.2 g/dL (3.5-5.0); Alkaline Phosphatase 73 U/L (40-110); Anion Gap 10 mmol/L (10-20); BUN (Urea Nitrogen) 12 mg/dL (9.8-20.1); Bilirubin, Total 0.7 mg/dL (0.2-1.2); CK (CPK) 44 U/L (29-168); Calc. Creatinine Clearance 0 mL/min (70-130); Calcium 9.4 mg/dL (7.8-10.44); Carbon Dioxide 27 mmol/L (22-29); Chloride 107 mmol/L (98-107); Estimated GFR 72; Globulin 2.6 g/dL (2.4-3.5); Glucose 94 mg/dL (70-105); Lipase 18 U/L (8-78); Protein, Total 6.8 g/dL (6.0-8.3); Sodium 140 mmol/L (136-145)
== END 2022-06-09 14:23 | disposition home or self-care (01) ==
LOC: ERS 10:29
DX: J18.9 Pneumonia, unspecified organism (principal); E78.2 Mixed hyperlipidemia; I11.0 Hypertensive heart disease with heart failure; I50.9 Heart failure, unspecified; Z86.711 Personal history of pulmonary embolism; Z86.718 Personal history of other venous thrombosis and embolism; Z79.899 Other long term (current) drug therapy
CPT/HCPCS: 71046; 80053; 82550; 83690; 84484; 85025; 93005; 96374; 96375; J0696; J2405

== ENCOUNTER 2022-06-14 15:30 | Inpatient (IN) | payer SELFPAY ==
[2022-06-14] MEDS ORDERED: Iopamidol-370 76% 500 ML MDV (1 ML CHARGE) ONE (15:54)
[2022-06-14 16:28] LABS: #Eosinphils 0.3 thou/uL (0.0-0.7); #Lymphocytes 3.8 thou/uL (1.20-3.40); #Monocytes 0.9 thou/uL (0.11-0.59); #Neutrophils 6.1 thou/uL (1.40-6.50); %Basophils 0.3 % (0.0-1.0); %Eosinophils 2.8 % (0.0-10.0); %Lymphocytes 34.4 % (21.0-51.0); %Monocytes 7.6 % (0.0-10.0); %Neutrophils 54.8 % (42.0-75.0); Hemoglobin 14.2 g/dL (12.0-16.0); Mean Corpuscular HGB CONC 34.2 g/dL (32.0-36.0); Mean Corpuscular Hemoglobin 31.8 pg (27.0-31.0); Mean Platelet Volume 9.3 fL (7.4-10.4); Platelet Count 203 10x3/uL (130-400); RBC Distribution Width 11.3 % (11.5-14.5); Red Blood Cell (RBC) Count 4.45 mill/uL (4.20-5.40); White Blood Cell (WBC) Count 11.2 10x3/uL (4.8-10.8)
[2022-06-14] MEDS ORDERED: Morphine 4 MG/ML VIAL ONE ×2 (16:33→18:27)
[2022-06-14] MEDS ORDERED: Mag-Al 1200 mg/1200 mg/30 ML UDCUP ONE (16:33)
[2022-06-14] MEDS ORDERED: Lidocaine Viscous Sol 2% 15 ml UD Cup ONE (16:33)
[2022-06-14] MEDS ORDERED: Ondansetron PF 4 MG/2 ML Vial ONE (16:33)
[2022-06-14 16:52] LABS: ALT (SGPT) 16 U/L (8-55); AST (SGOT) 11 U/L (5-34); Albumin 3.7 g/dL (3.5-5.0); Alkaline Phosphatase 73 U/L (40-110); Anion Gap 15 mmol/L (10-20); BUN (Urea Nitrogen) 14 mg/dL (9.8-20.1); Bilirubin, Total 0.3 mg/dL (0.2-1.2); Calc. Creatinine Clearance 0 mL/min (70-130); Calcium 9.1 mg/dL (7.8-10.44); Carbon Dioxide 29 mmol/L (22-29); Chloride 101 mmol/L (98-107); Estimated GFR 79; Globulin 2.7 g/dL (2.4-3.5); Glucose 81 mg/dL (70-105); Potassium 3.1 mmol/L (3.5-5.1); Protein, Total 6.4 g/dL (6.0-8.3); Sodium 142 mmol/L (136-145)
[2022-06-14] MEDS ORDERED: Potassium Chloride 20 MEQ TAB ONE (17:00)
[2022-06-14 19:59] LABS: SARS-CoV-2 NAA Rapid Test DETECTED (NotDetected)
[2022-06-14 21:39] LABS: #Eosinphils 0.2 thou/uL (0.0-0.7); #Lymphocytes 4.7 thou/uL (1.20-3.40); #Monocytes 1.1 thou/uL (0.11-0.59); #Neutrophils 7.2 thou/uL (1.40-6.50); %Basophils 0.3 % (0.0-1.0); %Eosinophils 1.5 % (0.0-10.0); %Lymphocytes 35.6 % (21.0-51.0); %Neutrophils 54.5 % (42.0-75.0); Hemoglobin 14.6 g/dL (12.0-16.0); Mean Corpuscular HGB CONC 34.9 g/dL (32.0-36.0); Mean Corpuscular Hemoglobin 32.5 pg (27.0-31.0); Mean Corpuscular Volume 93.1 fl (78.0-98.0); Mean Platelet Volume 9.3 fL (7.4-10.4); Platelet Count 210 10x3/uL (130-400); RBC Distribution Width 11.4 % (11.5-14.5); Red Blood Cell (RBC) Count 4.48 mill/uL (4.20-5.40); White Blood Cell (WBC) Count 13.3 10x3/uL (4.8-10.8)
[2022-06-14 21:52] LABS: Troponin I Less than 0.010 ng/mL (< 0.028)
[2022-06-14] MEDS ORDERED: cefTRIAXone\\ROCEPHIN 1 GM in Sodium Chloride 0.9% 100 ML IVPB SCH (22:00)
[2022-06-14 22:22] LABS: Anion Gap 12 mmol/L (10-20); BUN (Urea Nitrogen) 15 mg/dL (9.8-20.1); Calc. Creatinine Clearance 0 mL/min (70-130); Calcium 9.2 mg/dL (7.8-10.44); Carbon Dioxide 30 mmol/L (22-29); Chloride 102 mmol/L (98-107); Estimated GFR 87; Glucose 76 mg/dL (70-105); Potassium 3.8 mmol/L (3.5-5.1); Sodium 140 mmol/L (136-145)
[2022-06-14] MEDS ORDERED: cefTRIAXone (ROCEPHIN) 1 GM VIAL ONE (22:30)
[2022-06-15] MEDS ORDERED: diphenhydrAMINE 12.5 MG/5 ML UDCUP ONE (00:47)
[2022-06-15 01:29] LABS: Troponin I Less than 0.010 ng/mL (< 0.028)
[2022-06-15] MEDS ORDERED: diphenhydrAMINE 12.5 MG/5 ML UDCUP PO SCH (02:30)
[2022-06-15] MEDS ORDERED: traMADol HCl 50 MG TAB PO SCH (02:30)
[2022-06-15 05:58] LABS: #Basophils 0.1 thou/uL (0.0-0.2); #Eosinphils 0.2 thou/uL (0.0-0.7); #Lymphocytes 3.9 thou/uL (1.20-3.40); #Monocytes 0.7 thou/uL (0.11-0.59); #Neutrophils 6.4 thou/uL (1.40-6.50); %Basophils 0.8 % (0.0-1.0); %Eosinophils 2.1 % (0.0-10.0); %Lymphocytes 34.2 % (21.0-51.0); %Monocytes 6.3 % (0.0-10.0); %Neutrophils 56.7 % (42.0-75.0); Hemoglobin 13.8 g/dL (12.0-16.0); Mean Corpuscular HGB CONC 33.8 g/dL (32.0-36.0); Mean Corpuscular Hemoglobin 31.5 pg (27.0-31.0); Mean Corpuscular Volume 93.1 fl (78.0-98.0); Mean Platelet Volume 9.4 fL (7.4-10.4); Platelet Count 196 10x3/uL (130-400); RBC Distribution Width 11.3 % (11.5-14.5); Red Blood Cell (RBC) Count 4.39 mill/uL (4.20-5.40); White Blood Cell (WBC) Count 11.3 10x3/uL (4.8-10.8)
[2022-06-15 06:19] LABS: Anion Gap 15 mmol/L (10-20); BUN (Urea Nitrogen) 16 mg/dL (9.8-20.1); Calc. Creatinine Clearance 0 mL/min (70-130); Calcium 8.9 mg/dL (7.8-10.44); Carbon Dioxide 25 mmol/L (22-29); Chloride 103 mmol/L (98-107); Estimated GFR 89; Glucose 76 mg/dL (70-105); Potassium 3.7 mmol/L (3.5-5.1); Sodium 139 mmol/L (136-145)
[2022-06-15] MEDS ORDERED: Doxycycline 100 MG CAP PO SCH (09:00)
[2022-06-15 11:48] VITALS: BMI 26.6
[2022-06-15] MEDS ORDERED: Fluconazole 100 MG TAB PO SCH (13:30)
[2022-06-15] MEDS ORDERED: clonazePAM 1 MG TAB ONE (14:35)
[2022-06-15] MEDS ORDERED: Levofloxacin 500 mg/D5W 100 ml Premix Bag ONE (14:42)
[2022-06-15] MEDS: clonazePAM 1 MG TAB PO SCH ×2 (14:45→21:05)
[2022-06-15] MEDS: Nystatin 500,000 UNITS/5 ML UDCUP SSW SCH ×2 (17:41→21:06)
[2022-06-15] MEDS: tiZANidine HCl 4 MG TAB PO SCH ×2 (17:42→21:05)
[2022-06-15] MEDS: Pregabalin 75 MG CAP PO SCH (21:05)
[2022-06-15] MEDS: Acetaminophen 325 MG TAB PO PRN (21:06)
[2022-06-15] MEDS ORDERED: Fluconazole In NaCl,Iso-Osm 200 MG in Premix Bag 1 BAG IVPB SCH (23:00)
[2022-06-16] MEDS ORDERED: Levothyroxine Sodium 112 MCG TAB PO SCH (06:00)
[2022-06-16] MEDS: Acetaminophen 325 MG TAB PO PRN (06:03)
[2022-06-16 07:07] LABS: #Basophils 0.1 thou/uL (0.0-0.2); #Eosinphils 0.3 thou/uL (0.0-0.7); #Lymphocytes 3.1 thou/uL (1.20-3.40); #Monocytes 0.6 thou/uL (0.11-0.59); #Neutrophils 4.6 thou/uL (1.40-6.50); %Basophils 0.6 % (0.0-1.0); %Eosinophils 3.8 % (0.0-10.0); %Monocytes 6.7 % (0.0-10.0); %Neutrophils 52.9 % (42.0-75.0); Hemoglobin 13.6 g/dL (12.0-16.0); Mean Corpuscular HGB CONC 34.2 g/dL (32.0-36.0); Mean Corpuscular Hemoglobin 31.8 pg (27.0-31.0); Mean Platelet Volume 9.3 fL (7.4-10.4); Platelet Count 193 10x3/uL (130-400); RBC Distribution Width 11.3 % (11.5-14.5); Red Blood Cell (RBC) Count 4.27 mill/uL (4.20-5.40); White Blood Cell (WBC) Count 8.6 10x3/uL (4.8-10.8)
[2022-06-16 07:27] LABS: Anion Gap 12 mmol/L (10-20); BUN (Urea Nitrogen) 14 mg/dL (9.8-20.1); Calc. Creatinine Clearance 97 mL/min (70-130); Calcium 9.2 mg/dL (7.8-10.44); Carbon Dioxide 25 mmol/L (22-29); Chloride 104 mmol/L (98-107); Estimated GFR 92; Glucose 93 mg/dL (70-105); Potassium 4.1 mmol/L (3.5-5.1); Sodium 137 mmol/L (136-145)
[2022-06-16] MEDS ORDERED: Dexamethasone 4 MG TAB PO SCH (08:00)
[2022-06-16 08:02] VITALS: BP 96/62; TEMP 98.6
[2022-06-16] MEDS: clonazePAM 1 MG TAB PO SCH (08:39)
[2022-06-16] MEDS: tiZANidine HCl 4 MG TAB PO SCH (08:39)
[2022-06-16] MEDS: Pregabalin 75 MG CAP PO SCH (08:40)
[2022-06-16] MEDS: Nystatin 500,000 UNITS/5 ML UDCUP SSW SCH ×2 (08:41→13:07)
[2022-06-16] MEDS ORDERED: Fluconazole 100 MG TAB PO SCH (09:00)
[2022-06-16] MEDS ORDERED: Estradiol 1 MG TAB PO SCH (09:00)
[2022-06-16] MEDS ORDERED: Spironolactone 25 MG TAB PO SCH (09:00)
[2022-06-16] MEDS ORDERED: Ascorbic Acid 500 mg Chewable Tablet PO SCH (09:00)
[2022-06-16] MEDS ORDERED: Liothyronine Sodium 5 MCG TAB PO SCH (09:00)
[2022-06-16] MEDS ORDERED: Zinc Sulfate 220 MG CAP PO SCH (09:00)
[2022-06-16] MEDS ORDERED: Cholecalciferol (Vitamin D3) 400 UNITS TAB PO SCH (09:00)
== END 2022-06-16 13:58 | disposition home or self-care (01) | DRG 177 ==
LOC: ERS 15:30 → T4-A 20:45 → ERHOLD 20:59 → T4-A 06-15 14:49
PROVIDERS: ADMIT Hospitalist; ATTEND Hospitalist
PROC: 8E0ZXY6 Isolation (ICD-10-PCS; principal; 2022-06-14)
DX: U07.1 COVID-19 (principal); J18.9 Pneumonia, unspecified organism; B37.0 Candidal stomatitis; I50.9 Heart failure, unspecified; E78.5 Hyperlipidemia, unspecified; E78.00 Pure hypercholesterolemia, unspecified; G62.9 Polyneuropathy, unspecified; E03.9 Hypothyroidism, unspecified; F41.9 Anxiety disorder, unspecified; F32.A Depression, unspecified; F90.9 Attention-deficit hyperactivity disorder, unspecified type; F43.10 Post-traumatic stress disorder, unspecified; K12.30 Oral mucositis (ulcerative), unspecified; T36.95XA Adverse effect of unspecified systemic antibiotic, initial encounter; K80.20 Calculus of gallbladder without cholecystitis without obstruction; I11.0 Hypertensive heart disease with heart failure; Z86.718 Personal history of other venous thrombosis and embolism; Z90.49 Acquired absence of other specified parts of digestive tract; Z98.890 Other specified postprocedural states; Z90.710 Acquired absence of both cervix and uterus; Z88.1 Allergy status to other antibiotic agents; Z91.040 Latex allergy status; Z88.5 Allergy status to narcotic agent; Z88.2 Allergy status to sulfonamides; Z91.09 Other allergy status, other than to drugs and biological substances; Z79.899 Other long term (current) drug therapy
CPT/HCPCS: 36415; 71045; 71275; 80048; 80053; 83880; 84484; 85025; 85379; 93005; 96374; 96375; 96376; J0696; J1650; J1956; J2270; J2405; J3490; J8540; Q0163; Q9967; U0002

== ENCOUNTER 2022-09-08 23:01 | Emergency (ER) | payer SELFPAY ==
[2022-09-09 01:21] LABS: #Basophils 0.1 thou/uL (0.0-0.2); #Eosinphils 0.1 thou/uL (0.0-0.7); #Monocytes 0.6 thou/uL (0.11-0.59); #Neutrophils 7.2 thou/uL (1.40-6.50); %Basophils 0.7 % (0.0-1.0); %Eosinophils 0.6 % (0.0-10.0); %Lymphocytes 25.2 % (21.0-51.0); %Monocytes 5.3 % (0.0-10.0); %Neutrophils 67.9 % (42.0-75.0); Hemoglobin 14.9 g/dL (12.0-16.0); Mean Corpuscular HGB CONC 33.6 g/dL (32.0-36.0); Mean Corpuscular Hemoglobin 30.2 pg (27.0-31.0); Mean Corpuscular Volume 90.1 fl (78.0-98.0); Mean Platelet Volume 11.7 fL (7.4-10.4); Platelet Count 215 10x3/uL (130-400); RBC Distribution Width 12.1 % (11.5-14.5); Red Blood Cell (RBC) Count 4.93 mill/uL (4.20-5.40); White Blood Cell (WBC) Count 10.6 10x3/uL (4.8-10.8)
[2022-09-09 01:44] LABS: ALT (SGPT) 11 U/L (8-55); AST (SGOT) 13 U/L (5-34); Albumin 4.8 g/dL (3.5-5.0); Alkaline Phosphatase 87 U/L (40-110); Anion Gap 15 mmol/L (10-20); BUN (Urea Nitrogen) 10 mg/dL (9.8-20.1); Bilirubin, Total 0.5 mg/dL (0.2-1.2); Calc. Creatinine Clearance 0 mL/min (70-130); Calcium 10.6 mg/dL (7.8-10.44); Carbon Dioxide 24 mmol/L (22-29); Chloride 105 mmol/L (98-107); Estimated GFR 93; Globulin 3.1 g/dL (2.4-3.5); Glucose 97 mg/dL (70-105); Lipase 9 U/L (8-78); Potassium 3.7 mmol/L (3.5-5.1); Protein, Total 7.9 g/dL (6.0-8.3); Sodium 140 mmol/L (136-145)
[2022-09-09 03:29] LABS: SARS-CoV-2 NAA Rapid Test Not Detected (NotDetected)
[2022-09-09 04:09] LABS: Bilirubin Negative (Negative); Blood, Urine Negative (Negative); CAUTI Indications for Culture Fever or rigors; Clarity Clear (Clear); Glucose, Urine (Dipstick) Normal (Negative); Ketone, Urine Negative (Negative); Leukocyte Negative Leu/uL (Negative); Nitrite Negative (Negative); Protein, Urine (Dipstick) Negative (Neg-Trace); RBC/HPF 0-3 HPF (0-3); Specific Gravity, Urine 1.018 (1.002-1.036); Squamous Epithelial 0-3 HPF (0-3); Urobilinogen Normal mg/dL (Less than 2); WBC/HPF 0-3 HPF (0-3); pH, Urine 5.5 (5.0-9.0)
[2022-09-09 04:11] LABS: Bacteria/HPF 1+ HPF (None Seen); Pregnancy Test - Urine (BHCG) Negative (Negative); Pregu Control Background? CLEAR/WHITE (CLR/WHITE); Pregu Control Bar Appear? YES (CONTROL BAR); Specific Gravity 1.018 (1.002-1.036); Urine Culture Reflex No No
== END 2022-09-09 03:47 | disposition home or self-care (01) ==
LOC: ERS 23:01
DX: R53.83 Other fatigue (principal); E78.2 Mixed hyperlipidemia; I11.0 Hypertensive heart disease with heart failure; I50.9 Heart failure, unspecified; Z86.711 Personal history of pulmonary embolism; Z86.718 Personal history of other venous thrombosis and embolism; Z79.899 Other long term (current) drug therapy; F17.210 Nicotine dependence, cigarettes, uncomplicated; Z20.822 Contact with and (suspected) exposure to COVID-19
CPT/HCPCS: 36415; 80053; 81001; 81025; 82550; 83690; 83880; 84484; 85025; 99284

== ENCOUNTER 2022-10-02 14:13 | Emergency (ER) | payer SELFPAY ==
[2022-10-02 15:48] LABS: #Basophils 0.1 thou/uL (0.0-0.2); #Eosinphils 0.2 thou/uL (0.0-0.7); #Monocytes 0.5 thou/uL (0.11-0.59); #Neutrophils 4.3 thou/uL (1.40-6.50); %Basophils 1.4 % (0.0-1.0); %Eosinophils 2.5 % (0.0-10.0); %Lymphocytes 34.2 % (21.0-51.0); %Monocytes 6.1 % (0.0-10.0); %Neutrophils 55.5 % (42.0-75.0); Hematocrit 43.8 % (36.0-47.0); Hemoglobin 14.9 g/dL (12.0-16.0); Mean Corpuscular Volume 88.3 fl (78.0-98.0); Mean Platelet Volume 10.7 fL (7.4-10.4); Platelet Count 300 10x3/uL (130-400); RBC Distribution Width 11.8 % (11.5-14.5); Red Blood Cell (RBC) Count 4.96 mill/uL (4.20-5.40); White Blood Cell (WBC) Count 7.7 10x3/uL (4.8-10.8)
[2022-10-02 15:55] LABS: Bacteria/HPF None Seen HPF (None Seen); Bilirubin Negative (Negative); Blood, Urine Negative (Negative); CAUTI Indications for Culture Dysuria,urgency,freq; Clarity Clear (Clear); Glucose, Urine (Dipstick) Normal (Negative); Ketone, Urine Negative (Negative); Leukocyte Negative Leu/uL (Negative); Nitrite Negative (Negative); Protein, Urine (Dipstick) Negative (Neg-Trace); RBC/HPF 0-3 HPF (0-3); Squamous Epithelial 0-3 HPF (0-3); Urobilinogen Normal mg/dL (Less than 2); WBC/HPF 0-3 HPF (0-3)
[2022-10-02 15:58] LABS: Urine Culture Reflex No No
[2022-10-02 16:04] LABS: Amphetamine Detected (NotDetected); Barbiturates Screen Not Detected (NotDetected); Benzodiazepine Screen Not Detected (NotDetected); Cocaine Metabolite Screen Not Detected (NotDetected); Methadone Not Detected (NotDetected); Methamphetamine Not Detected (NotDetected); Opiate Screen Not Detected (NotDetected); Oxycodone Screen Not Detected (NotDetected); Phencyclidine (PCP) Not Detected (NotDetected); THC/Cannabinoid Screen Not Detected (NotDetected); Tricyclic Screen Not Detected (NotDetected)
[2022-10-02 16:12] LABS: ALT (SGPT) 14 U/L (8-55); AST (SGOT) 15 U/L (5-34); Albumin 4.8 g/dL (3.5-5.0); Alkaline Phosphatase 93 U/L (40-110); Anion Gap 14 mmol/L (10-20); BUN (Urea Nitrogen) 19 mg/dL (9.8-20.1); Bilirubin, Total 0.5 mg/dL (0.2-1.2); Calc. Creatinine Clearance 0 mL/min (70-130); Calcium 10.7 mg/dL (7.8-10.44); Carbon Dioxide 24 mmol/L (22-29); Chloride 105 mmol/L (98-107); Estimated GFR 85; Globulin 3.6 g/dL (2.4-3.5); Glucose 97 mg/dL (70-105); Potassium 3.6 mmol/L (3.5-5.1); Protein, Total 8.4 g/dL (6.0-8.3); Sodium 139 mmol/L (136-145)
[2022-10-02 16:13] LABS: Acetaminophen Less than 10 mcg/mL (10.0-30.0); Alcohol Less than 10.0 mg/dL (Less than 10); Lipase 26 U/L (8-78); Salicylate Less than 8.0 mg/dL (15.0-30.0)
== END 2022-10-02 17:31 | disposition home or self-care (01) ==
LOC: ERS 14:13
DX: L29.9 Pruritus, unspecified (principal); I11.0 Hypertensive heart disease with heart failure; I50.9 Heart failure, unspecified; E78.2 Mixed hyperlipidemia; E03.9 Hypothyroidism, unspecified; F17.210 Nicotine dependence, cigarettes, uncomplicated
CPT/HCPCS: 80053; 80306; 80307; 81001; 83605; 83690; 84443; 85025; 96360; 96361

== ENCOUNTER 2022-10-15 01:46 | Emergency (ER) | payer SELFPAY ==
[2022-10-15] MEDS ORDERED: hydrOXYzine 25 MG TAB ONE ×2 (03:06→08:29)
[2022-10-15] MEDS ORDERED: Acetaminophen 325 MG TAB ONE (03:06)
[2022-10-15 04:32] LABS: #Basophils 0.1 thou/uL (0.0-0.2); #Eosinphils 0.2 thou/uL (0.0-0.7); #Monocytes 0.8 thou/uL (0.11-0.59); #Neutrophils 6.6 thou/uL (1.40-6.50); %Basophils 0.9 % (0.0-1.0); %Eosinophils 1.3 % (0.0-10.0); %Lymphocytes 31.6 % (21.0-51.0); %Monocytes 6.9 % (0.0-10.0); %Neutrophils 58.9 % (42.0-75.0); Hematocrit 39.9 % (36.0-47.0); Hemoglobin 13.4 g/dL (12.0-16.0); Mean Corpuscular HGB CONC 33.6 g/dL (32.0-36.0); Mean Corpuscular Hemoglobin 30.7 pg (27.0-31.0); Mean Corpuscular Volume 91.5 fl (78.0-98.0); Mean Platelet Volume 10.7 fL (7.4-10.4); Platelet Count 347 10x3/uL (130-400); RBC Distribution Width 11.8 % (11.5-14.5); Red Blood Cell (RBC) Count 4.36 mill/uL (4.20-5.40); White Blood Cell (WBC) Count 11.2 10x3/uL (4.8-10.8)
[2022-10-15 05:01] LABS: Acetaminophen Less than 10 mcg/mL (10.0-30.0); Alcohol Less than 10.0 mg/dL (Less than 10); Salicylate Less than 8.0 mg/dL (15.0-30.0)
[2022-10-15 05:12] LABS: ALT (SGPT) 19 U/L (8-55); AST (SGOT) 21 U/L (5-34); Albumin 4.8 g/dL (3.5-5.0); Alcohol Less than 10.0 mg/dL (Less than 10); Alkaline Phosphatase 91 U/L (40-110); Anion Gap 18 mmol/L (10-20); BUN (Urea Nitrogen) 23 mg/dL (9.8-20.1); Bilirubin, Total 0.4 mg/dL (0.2-1.2); Calc. Creatinine Clearance 0 mL/min (70-130); Calcium 10.2 mg/dL (7.8-10.44); Carbon Dioxide 21 mmol/L (22-29); Chloride 101 mmol/L (98-107); Estimated GFR 44; Glucose 128 mg/dL (70-105); Protein, Total 7.8 g/dL (6.0-8.3); Sodium 137 mmol/L (136-145)
[2022-10-15] MEDS ORDERED: Levothyroxine Sodium 112 MCG TAB PO SCH (06:00)
[2022-10-15] MEDS ORDERED: Spironolactone 25 MG TAB PO SCH (08:00)
[2022-10-15] MEDS ORDERED: Naproxen 500 MG TAB ONE (08:11)
[2022-10-15] MEDS ORDERED: Estradiol 1 MG TAB PO SCH (09:00)
[2022-10-15] MEDS ORDERED: tiZANidine HCl 4 MG TAB PO SCH (21:00)
== END 2022-10-15 09:56 | disposition home or self-care (01) ==
LOC: ERS 01:46
DX: F60.3 Borderline personality disorder (principal); I11.0 Hypertensive heart disease with heart failure; I50.9 Heart failure, unspecified; E78.00 Pure hypercholesterolemia, unspecified; F17.210 Nicotine dependence, cigarettes, uncomplicated; Z79.899 Other long term (current) drug therapy
CPT/HCPCS: 36415; 80053; 80307; 84443; 85025; 93005